=== PATIENT | male | born 1935 | race Caucasian/White ===

== ENCOUNTER 2017-01-26 06:30 | Inpatient (IN) | payer OTHER ==
[~2017-01-26] VITALS: Ht 167.6 cm; Wt 74.8 kg
[~2017-01-26 06:30] MED LIST: ALBU0.0912 IH; ATOR20TA40 PO; CLIN300C6 PO; LACT10CA PO; LEVO750T2 PO; LISI10TA11 PO; TAMS0.4C96 PO
--- NOTE | 2017-01-26 06:41 | NUR ---
PT TAKEN TO BED 2
[2017-01-26 06:46] VITALS: BP 136/84
--- NOTE | 2017-01-26 07:00 | NUR ---
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 WILL CONTINUE TO MONITOR. Addendum: 01/26/17 at 0843 by [facility] PT NOTED WITH DISCOLORATION TO BL ARMS, PT STATES FROM RECENT IVS. PT STATES NO PAIN OR DISCOMFORT TO SITE AT THIS TIME.
--- NOTE | 2017-01-26 07:41 | NUR ---
XRAY AT BEDSIDE.
[2017-01-26 07:52] LABS: BASOPHILS # (AUTO) 0.2 K/uL (0.00-0.22); BASOPHILS % (AUTO) 2.4 % (0.0-2.0); EOSINOPHILS # (AUTO) 0.5 K/uL (0-0.4); EOSINOPHILS % (AUTO) 6.5 % (0.0-4.0); HEMATOCRIT 40.4 % (36-52); HEMOGLOBIN 13.4 g/dL (12.0-18.0); LYMPHOCYTES # (AUTO) 1.7 K/uL (2.0-11.5); LYMPHOCYTES % (AUTO) 20.8 % (20.5-51.1); MEAN CORPUSCULAR HEMOGLOBIN 31 pg (27-31); MEAN CORPUSCULAR HGB CONC 33 g/dL (33-37); MEAN CORPUSCULAR VOLUME 93 fL (80-94); MONOCYTES # (AUTO) 0.8 K/uL (0.8-1.0); MONOCYTES % (AUTO) 9.8 % (1.7-9.3); NEUTROPHILS # (AUTO) 4.9 K/uL (1.8-7.7); NEUTROPHILS % (AUTO) 60.5 % (42.2-75.2); PLATELET COUNT (AUTO) 451 K/uL (140-450); RED BLOOD CELL COUNT(AUTO) 4.34 MIL/uL (4.20-6.10); RED CELL DISTRIBUTION WIDTH 13.2 % (11.6-13.7); WHITE BLOOD COUNT (AUTO) 8.1 K/uL (4.8-10.8)
[2017-01-26 08:07] LABS: ANION GAP 11.4 (8-16); CARBON DIOXIDE 30.6 mmol/L (21-32); CHLORIDE 106 mmol/L (98-107); GLUCOSE 91 mg/dL (74-106); SODIUM SERUM 144 mmol/L (136-145); UREA NITROGEN, BLOOD 20 mg/dL (7-18)
[2017-01-26 08:11] LABS: ALBUMIN 2.7 g/dL (3.4-5.0); ASPARTATE AMINOTRANSFERASE 15 U/L (15-37); TOTAL BILIRUBIN 0.5 mg/dL (0.0-1.0)
[2017-01-26] MEDS ORDERED: TETRACAINE HCL/PF 0.5% OPTH 4 ML BTL OP ONE (09:00)
[2017-01-26] MEDS ORDERED: cefTRIAXone 1,000 MG VIAL ONE (09:04)
--- NOTE | 2017-01-26 09:18 | NUR ---
ER MD DR. LONG EVALUATING PT AT BEDSIDE.
[2017-01-26] MEDS ORDERED: NACL 0.9% 1,000 ML IV SCH ×2 (09:53→14:20)
[2017-01-26] MEDS ORDERED: ONDANSETRON 4 MG/2 ML VIAL IVP PRN (09:55)
[2017-01-26] MEDS ORDERED: HYDROcodone/APAP 7.5/325 MG 1 TAB PO PRN (09:55)
[2017-01-26] MEDS ORDERED: ACETAMINOPHEN 325 MG TAB PO PRN (09:55)
--- NOTE | 2017-01-26 10:03 | NUR ---
REPORT GIVEN TO JACLYN BUSTILLO.
--- NOTE | 2017-01-26 10:25 | NUR ---
PT ARRIVED ON THE UNIT IN A GURNEY WITH 2 ER NURSES. PT IS AWAKE AND ORIENTED. INTRODUCED MYSELF AND UPDATED THE BOARD. PT IS AMBULATORY. AMBULATED FROM [address] WAY TO BED. GAIT STEADY. PT HAS AN IV ON R AC SL. SKIN INTACT. C/O OF BLURRINESS OF HIS VISION. PT STATES THAT IT'S THE HOSPITAL LIGHTS OR MEDICATION THAT WE GIVE HIM THAT IS CAUSING THE BLURRINESS AND BLINDNESS. NEXT OF KIN CALLED. STATES HE HAS BEEN IN AND OUT OF HOSPITALS IN THE LAST 2 WEEKS. [facility] 4X , [facility] 3X, [facility]. V/S WITHIN NORMAL LIMITS. DENIES PAIN AT THIS TIME. WILL CONTINUE TO MONITOR PT.
--- NOTE | 2017-01-26 10:25 | NUR ---
Patient will be admitted to care of DR. FAIR. Admited to TELEMETRY. Will go to room 121B. Belongings list completed. Report to JACLYN BUSTILLO.
[2017-01-26 11:00] VITALS: BP 125/82
[2017-01-26 11:06] LABS: CHOL/HDL RATIO 3.3 (1-4.5); FREE T4 (FREE THYROXINE) 1.1 ng/dL (0.76-1.46); MAGNESIUM 1.6 mg/dL (1.8-2.4); THYROID STIMULATING HORMONE 1.81 uIU/mL (0.34-3.74)
[2017-01-26 12:00] VITALS: BP 123/65
--- NOTE | 2017-01-26 12:00 | NUR ---
NO ORDERS FOR DIET. TRIED TO LOOK FOR MD. ALL RESIDENTS WENT TO A SPEAKING ENGAGEMENT. SPOKE TO STUDENTS. THEY WILL TEXT HIM AND FIND OUT.
[2017-01-26] MEDS: AZITHROMYCIN 250 MG TAB PO SCH (14:25)
--- NOTE | 2017-01-26 14:37 | NUR ---
ATTENDING MD AND GARAGE DOOR OPENER INSTALLER CAME IN TO SEE PT.
[2017-01-26 16:00] VITALS: BP 121/74
--- NOTE | 2017-01-26 16:28 | NUR ---
PSYCH CONSULT HERE.
[2017-01-26] MEDS ORDERED: LORazepam 1 MG TAB PO SCH (16:30)
[2017-01-26] MEDS ORDERED: ALPRAZolam 0.5 MG TAB PO SCH (16:50)
--- NOTE | 2017-01-26 18:37 | NUR ---
PT WATCHING TV. NO SIGNS OF DISTRESS. WILL CONTINUE TO MONITOR PT.
--- NOTE | 2017-01-26 19:25 | NUR ---
ENDORSED PT TO THE NIGHTSHIFT NURSE AT BEDSIDE FOR CONTINUITY OF CARE. PT IN STABLE CONDITION.
--- NOTE | 2017-01-26 19:26 | NUR ---
RECEIVED REPORT AT THE BEDSIDE FROM DAY NURSE JHOANA ANAYA, PT IN STABLE CONDITION, NO S/S OF DISTRESS NOTED. PT IS AAO4X, ON RA. IV TO THE R AC 22G PATENT AND INTACT, INFUSING WELL. RESPIRATIONS ARE EVEN AND UNLABORED. BOWEL SOUNDS PRESENT. SKIN IS INTACT. BRUISING NOTED ON UPPER EXTREMITIES BILATERALLY. INITIAL ASSESSMENT COMPLETED. PLAN OF CARE DISCUSSED WITH PT AT THE BEDSIDE, VERBALIZED UNDERSTANDING. ALL SAFETY PRECAUTIONS MET, CALL LIGHT WITHIN REACH, WILL CONTINUE TO MONITOR.
[2017-01-26 20:00] VITALS: BP 99/60
[2017-01-26] MEDS: DOCUSATE SODIUM 100 MG GELCAP PO SCH (20:22)
--- NOTE | 2017-01-26 20:55 | NUR ---
PT REFUSES LISINOPRIL AT THIS TIME, PT STATES, "MY BP IS TOO LOW I DO NOT NEED THAT, IT WONT BE GOOD." PT EDUCATED ON RISKS AND BENEFITS, VERBALIZED UNDERSTANDING. WILL CONTINUE TO MONITOR
[2017-01-26] MEDS ORDERED: LISINOPRIL 10 MG TAB PO SCH (21:00)
[2017-01-26] MEDS ORDERED: ZOLPIDEM 10 MG TAB PO SCH (21:00)
[2017-01-26 21:27] VITALS: BP 120/80
[2017-01-27] VITALS: BP 104/70
--- NOTE | 2017-01-27 01:30 | NUR ---
PT AGITATED AT THIS TIME, REQUESTING MORE SLEEPING PILLS. PT STATES, "I CANNOT SLEEP GET THE IN HERE NOW TO GIVE ME SLEEPING MEDICATION." DR. HSIEH MADE AWARE NO NEW ORDERS
--- NOTE | 2017-01-27 02:30 | NUR ---
NOTIFIED DR. HSIEH OF PTS REQUEST AGAIN FOR MORE SLEEPING MEDICATION.
[2017-01-27 03:00] VITALS: BP 120/68
[2017-01-27 04:00] VITALS: BP 116/72
--- NOTE | 2017-01-27 05:33 | NUR ---
PATIENT IS NOT COOPERATIVE AND TAKING MASK ON AND OFF. PATIENT WILL NOT KEEP MASK ON DURING NIGHT AND SATURATION SPO2 96 HEART RATE 88 ON ROOM AIR. RT WAS UNABLE TO CHART BIPAP EVERY TWO HOURS DURING NOC BECAUSE PATIENT KEEP TAKING MASK OFF.
[2017-01-27 06:07] LABS: BASOPHILS # (AUTO) 0.1 K/uL (0.00-0.22); BASOPHILS % (AUTO) 1.6 % (0.0-2.0); EOSINOPHILS # (AUTO) 0.5 K/uL (0-0.4); EOSINOPHILS % (AUTO) 5.5 % (0.0-4.0); HEMATOCRIT 36.8 % (36-52); HEMOGLOBIN 12.4 g/dL (12.0-18.0); LYMPHOCYTES # (AUTO) 1.9 K/uL (2.0-11.5); LYMPHOCYTES % (AUTO) 23.1 % (20.5-51.1); MEAN CORPUSCULAR HEMOGLOBIN 32 pg (27-31); MEAN CORPUSCULAR HGB CONC 34 g/dL (33-37); MEAN CORPUSCULAR VOLUME 95 fL (80-94); MONOCYTES # (AUTO) 0.8 K/uL (0.8-1.0); MONOCYTES % (AUTO) 9.6 % (1.7-9.3); NEUTROPHILS # (AUTO) 5.1 K/uL (1.8-7.7); NEUTROPHILS % (AUTO) 60.2 % (42.2-75.2); PLATELET COUNT (AUTO) 401 K/uL (140-450); RED BLOOD CELL COUNT(AUTO) 3.89 MIL/uL (4.20-6.10); RED CELL DISTRIBUTION WIDTH 13.6 % (11.6-13.7); WHITE BLOOD COUNT (AUTO) 8.4 K/uL (4.8-10.8)
[2017-01-27 06:34] LABS: ANION GAP 8.3 (8-16); CARBON DIOXIDE 31.7 mmol/L (21-32); CHLORIDE 107 mmol/L (98-107); GLUCOSE 87 mg/dL (74-106); SODIUM SERUM 143 mmol/L (136-145); UREA NITROGEN, BLOOD 20 mg/dL (7-18)
[2017-01-27 06:47] LABS: MAGNESIUM 1.6 mg/dL (1.8-2.4); PHOSPHORUS 3.4 mg/dL (2.5-4.9)
--- NOTE | 2017-01-27 07:41 | NUR ---
GAVE REPORT TO DAY NURSE AT THE BEDSIDE FOR CONTINUITY OF CARE, PT REMAINS STABLE
--- NOTE | 2017-01-27 07:45 | NUR ---
RECEIVED PT REPORT AT BEDSIDE FROM NIGHT NURSE. PT IS AAOX4 AND SHOWS NO S/S OF ACUTE DISTRESS ON ROOM AIR. PT DENIES PAIN. PT HAS PURPLE DISCOLORATION AT THE L UPPER ARM; OTHERWISE, SKIN IS INTACT. PT ON TELE MONITOR. IV NOTED ON THE R AC WITH IVF'S INFUSING WELL. IV IS PATENT AND INTACT WITH NO SIGNS OF INFILTRATION. PT WAS EXPLAINED POC FOR TODAY AND PT VERBALIZED UNDERSTANDING. THE BED IS IN LOW POSITION WITH CALL LIGHT WITHIN REACH. ALL NEED'S MET AT THIS TIME. WILL CONTINUE TO MONITOR.
--- NOTE | 2017-01-27 07:47 | NUR ---
PT REMOVED CPAP REFUSED ALL VITALS
[2017-01-27 08:00] VITALS: BP 103/65
[2017-01-27] MEDS ORDERED: TAMSULOSIN 0.4 MG CAP PO SCH (08:30)
[2017-01-27] MEDS: DOCUSATE SODIUM 100 MG GELCAP PO SCH (08:49)
[2017-01-27] MEDS ORDERED: LACTOBACILLUS RHAMNOSUS GG 1 EACH CAP PO SCH (09:00)
[2017-01-27] MEDS ORDERED: ATORVASTATIN 20 MG TAB PO SCH (09:00)
[2017-01-27] MEDS ORDERED: CITALOPRAM 20 MG TAB PO SCH (09:00)
[2017-01-27] MEDS ORDERED: PANTOPRAZOLE 40 MG INJ VIAL IVP SCH (09:00)
--- NOTE | 2017-01-27 09:00 | NUR ---
ADMINISTERED SCHEDULED MEDICATIONS. PT TOLERATED ACTIVITY WELL. PT SWALLOWED WITH NO DIFFICULTY. ALL NEED'S MET AT THIS TIME.
--- NOTE | 2017-01-27 11:15 | NUR ---
PT IS SITTING WATCHING TV AND SHOWS NO S/S OF ACUTE DISTRESS ON ROOM AIR. WILL CONTINUE TO MONITOR.
[2017-01-27 12:00] VITALS: BP 116/74
[2017-01-27] MEDS: AZITHROMYCIN 250 MG TAB PO SCH (12:15)
--- NOTE | 2017-01-27 12:55 | NUR ---
PT STATED, " I AM LOSING MY VISION WITH THE TREATMENT I AM RECEIVING HERE." PT WAS ASKED WHEN DID THIS BEGIN, PT STATED, " ONCE I ARRIVE TO THE HOSPITAL IT BEGINS TO FADE, I CAN BARELY MAKE YOUR SILHOUETTE. MY RIGHT EYE I CANNOT MAKE OUT YOUR FACE." DR SU WAS NOTIFIED. PT WAS EXPLAINED TREATMENT BY AND POC. PT STATED, " I WANT TO GO HOME, YOU CANNOT KEEP ME HERE AGAINST MY WILL." PT WAS EXPLAINED HE HAS THE RIGHT TO LEAVE OUR CARE HOWEVER IT IS IN HIS BEST INTEREST TO CONTINUE CARE HERE TO IMPROVE HIS INFECTION. 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 PT INSISTED ON LEAVING AMA. EXPLAINED THE CONSEQUENCES OF LEAVING AMA. PT VERBALIZED UNDERSTANDING AND SIGNED AMA FORM. PT IV WAS DISCONTINUED WITH IV CANNULA INTACT. REMOVED WRISTBANDS AND TELE BOX. TAXI WAS CALLED FOR PT, PT STATED HE WILL PAY OF TAXI RIDE HOME . PT WAS OFFERED A WHEELCHAIR HOWEVER HE PREFERRED TO AMB OFF UNIT. PT AMB WITH STEADY GAIT.
== END 2017-01-27 12:55 | disposition left against medical advice (07) | DRG 194 ==
LOC: MED 06:30 → MTU 09:53
PROVIDERS: ADMIT Family Medicine; ATTEND Family Medicine
DX: J18.9 Pneumonia, unspecified organism (principal); E44.0 Moderate protein-calorie malnutrition; E83.42 Hypomagnesemia; F44.6 Conversion disorder with sensory symptom or deficit; F41.9 Anxiety disorder, unspecified; Z53.21 Procedure and treatment not carried out due to patient leaving prior to being seen by health care provider; H54.7 Unspecified visual loss; I10 Essential (primary) hypertension; M62.50 Muscle wasting and atrophy, not elsewhere classified, unspecified site; G47.33 Obstructive sleep apnea (adult) (pediatric); Z90.49 Acquired absence of other specified parts of digestive tract; Z68.26 Body mass index [BMI] 26.0-26.9, adult; Z87.891 Personal history of nicotine dependence
CPT/HCPCS: 36415; 71010; 80048; 80053; 82140; 82150; 83605; 83690; 83735; 83880; 84100; 84439; 84443; 84484; 85025; 85610; 85730; 87040; 87081; 93005; 94660; 96365; 99285; C9113; J0696; J7030; J7060

== ENCOUNTER 2017-01-28 15:45 | Inpatient (IN) | payer OTHER ==
[~2017-01-28] VITALS: Ht 167.6 cm; Wt 77.6 kg
[2017-01-28 15:54] VITALS: BP 117/74
--- NOTE | 2017-01-28 15:55 | NUR ---
PT AMBULATED TO BED 8.
--- NOTE | 2017-01-28 15:57 | NUR ---
82M BIB FAMILY C/O SHORTNESS OF BREATH WITH VISION LOSS X 2 HOURS PRIOR TO ARRIVAL TO ER TODAY; PT STATES " I CAN SEE ABOUT 40 % IN BOTH EYES. THIS IS A NEW CONDITION THAT'S NEVER HAPPENED TO ME BEFORE"; WHEEZES HEARD ON BL BASES, PT STATES NO COUGH AT THIS TIME, RR EVEN/UNLABORED, EQUAL RISE/FALL OF CHEST NOTED AT THIS TIME, PT SPEAKING IN FULL CLEAR SENTENCES AT THIS TIME; PT AA&OX4, PERRLA, STATES NO PAIN AND NO N/V/D AT THIS TIME; SMALL "SPOTS" OF DISCOLORATION TO BL ARMS NOTED AT THIS TIME; PT STATES " I THINK I HIT A TABLE, BUT IT DOESN'T HURT"; STEADY GAIT; PT PLACED ON MONITOR, RESTING IN BED WITH HOB ELEVATED AND IN LOWEST POSITION; POSITIONED FOR COMFORT; ER MD MADE AWARE OF STATUS. WILL CONTINUE TO MONITOR.
[2017-01-28] MEDS ORDERED: NACL 0.9% 2,000 ML IV SCH (15:59)
[2017-01-28] MEDS ORDERED: LEVOFLOXACIN 750 MG/D5W PREMIX 150 ML IV ONE (16:00)
--- NOTE | 2017-01-28 16:05 | NUR ---
XRAY AT BEDSIDE.
[2017-01-28 16:32] LABS: BASOPHILS # (AUTO) 0.1 K/uL (0.00-0.22); BASOPHILS % (AUTO) 1.8 % (0.0-2.0); EOSINOPHILS # (AUTO) 0.2 K/uL (0-0.4); EOSINOPHILS % (AUTO) 2.8 % (0.0-4.0); HEMATOCRIT 39.6 % (36-52); LYMPHOCYTES # (AUTO) 1.2 K/uL (2.0-11.5); LYMPHOCYTES % (AUTO) 15.5 % (20.5-51.1); MEAN CORPUSCULAR HEMOGLOBIN 31 pg (27-31); MEAN CORPUSCULAR HGB CONC 33 g/dL (33-37); MEAN CORPUSCULAR VOLUME 93 fL (80-94); MONOCYTES # (AUTO) 0.6 K/uL (0.8-1.0); NEUTROPHILS # (AUTO) 5.8 K/uL (1.8-7.7); NEUTROPHILS % (AUTO) 72.9 % (42.2-75.2); PLATELET COUNT (AUTO) 425 K/uL (140-450); RED BLOOD CELL COUNT(AUTO) 4.24 MIL/uL (4.20-6.10); RED CELL DISTRIBUTION WIDTH 13.4 % (11.6-13.7); WHITE BLOOD COUNT (AUTO) 7.9 K/uL (4.8-10.8)
--- NOTE | 2017-01-28 16:47 | NUR ---
ER MD DR. JUSTICE EVALUATING PT AT BEDSIDE.
[2017-01-28 17:03] LABS: ALBUMIN 2.8 g/dL (3.4-5.0); ANION GAP 12.4 (8-16); ASPARTATE AMINOTRANSFERASE 16 U/L (15-37); CARBON DIOXIDE 28.3 mmol/L (21-32); CHLORIDE 103 mmol/L (98-107); GLUCOSE 101 mg/dL (74-106); POTASSIUM 3.7 mmol/L (3.5-5.1); SODIUM SERUM 140 mmol/L (136-145); TOTAL BILIRUBIN 0.5 mg/dL (0.0-1.0); UREA NITROGEN, BLOOD 22 mg/dL (7-18)
[2017-01-28 17:11] LABS: APPEARANCE,URINE CLEAR (CLEAR); BILIRUBIN,URINE NEGATIVE (NEGATIVE); BLOOD, URINE NEGATIVE (NEGATIVE); COLOR,URINE YELLOW (YELLOW); LEUKOCYTE ESTERASE ,URINE NEGATIVE (NEGATIVE); NITRITE, URINE NEGATIVE (NEGATIVE); UGLUCOSE NEGATIVE (NEGATIVE)
[2017-01-28] MEDS: NACL 0.9% 1,000 ML IV SCH (17:14)
[2017-01-28] MEDS ORDERED: ACETAMINOPHEN 325 MG TAB PO PRN (17:15)
[2017-01-28] MEDS ORDERED: ONDANSETRON 4 MG/2 ML VIAL IVP PRN (17:15)
[2017-01-28] MEDS ORDERED: HYDROcodone/APAP 7.5/325 MG 1 TAB PO PRN (17:15)
[2017-01-28] MEDS ORDERED: ALBUTEROL SULFATE/IPRATROPIU 3 ML SOL IH PRN (17:15)
--- NOTE | 2017-01-28 17:21 | NUR ---
PT RETURNED FROM [facility]IA [facility] BY [facility] AT THIS TIME.
--- NOTE | 2017-01-28 17:57 | NUR ---
Patient will be admitted to care of DR. BARNARD. Admited to TELEMETRY. Will go to room 121B. Belongings list completed. Report to JACLYN JALLOH.
[2017-01-28 17:59] LABS: CHOL/HDL RATIO 3.3 (1-4.5); FREE T4 (FREE THYROXINE) 1.12 ng/dL (0.76-1.46); MAGNESIUM 1.5 mg/dL (1.8-2.4); PHOSPHORUS 2.9 mg/dL (2.5-4.9); THYROID STIMULATING HORMONE 1.1 uIU/mL (0.34-3.74)
[2017-01-28 18:22] LABS: BARBITURATE, URINE NEG. ng/ml (NEG <=200); BENZODIAZEPINE, URINE NEG. ng/mL (NEG <=200); CANNABINOID, URINE NEG. ng/mL (NEG <=50); COCAINE, URINE NEG. ng/mL (NEG <=300); OPIATE, URINE NEG. ng/mL (NEG <=2000); PHENCYCLIDINE SCREEN,URINE NEG. ng/mL (NEG <=25)
--- NOTE | 2017-01-28 19:00 | NUR ---
PT RECEIVED FROM ED VIA [place] AT 1845. PT IS AWAKE ALERT AND ORIENTED X4. NO PAIN OR RESP DISTRESS NOTED. PT IS RESPONSIVE TO VERBAL COMMAND APPROPRIATELY. V.S STABLE.
[2017-01-28] MEDS ORDERED: MAGNESIUM CHLORIDE 64 MG TABEC PO SCH (19:20)
[2017-01-28] MEDS: ALBUTEROL SULFATE/IPRATROPIU 3 ML SOL IH SCH (19:21)
--- NOTE | 2017-01-28 19:25 | NUR ---
RECEIVED BEDSIDE REPORT FROM DAY SHIFT NURSE, PT RESTING NO DISTRESS NOTED, STABLE, NO SOB, ON 2L NC, IV TO THE R FA 20G RUNNING NS @50ML/HR, INFUSING WELL, INITIAL ASSESSMENT DONE, ALL SAFETY PRECAUTION MET. CALL LIGHT WIHTIN REACH, WILL CONTINUE TO MONITOR.
[2017-01-28 20:00] VITALS: BP 125/68
[2017-01-28] MEDS ORDERED: CLINDAMYCIN 600 MG/4 ML VIAL ONE (20:43)
[2017-01-28] MEDS ORDERED: ZOLPIDEM 10 MG TAB PO SCH (21:00)
[2017-01-28] MEDS: LISINOPRIL 10 MG TAB PO SCH (21:06)
[2017-01-28] MEDS: DOCUSATE SODIUM 100 MG GELCAP PO SCH (21:07)
[2017-01-28] MEDS: CLINDAMYCIN 600 MG in DEXTROSE 5% 50 ML IV SCH (21:07)
--- NOTE | 2017-01-28 21:07 | NUR ---
DUE MEDICATION GIVEN, PT RESTING, NO DISTRESS NOTED, CALL LIGHT WITHIN REACH, WILL CONTINUE TO MONITOR.
--- NOTE | 2017-01-28 21:16 | NUR ---
PLACED PT ON MASK CPAP AND AFTER 30 MIN WITH THE PT IN THE ROOM DISCUSS THE CPAP, HE WANTS THE CPAP OFF AND FOR ME TO COME BACK IN ONE HOUR TO SEE HIM AND HE WILL TRY AGAIN.
[2017-01-28] MEDS: LORazepam 1 MG TAB PO PRN (23:07)
--- NOTE | 2017-01-28 23:07 | NUR ---
PT REPORTING UNABLE TO SLEEP, MEDICATION GIVEN, PT TOLERATED WELL, CALL LIGHT WITHIN REACH. NO DISTRESS NOTED, WILL CONTINUE TO MONITOR.
[2017-01-29] VITALS: BP 118/60
[2017-01-29] MEDS: CLINDAMYCIN 600 MG in DEXTROSE 5% 50 ML IV SCH ×4 (00:21→23:02)
[2017-01-29] MEDS ORDERED: CLINDAMYCIN 600 MG/4 ML VIAL ONE ×2 (00:29→06:46)
--- NOTE | 2017-01-29 03:40 | NUR ---
PT RESTING, NO DISTRESS NOTED, CALL LIGHT WITHIN REACH. WILL CONTINUE TO MONITOR.
[2017-01-29 04:00] VITALS: BP 117/80
[2017-01-29] MEDS: LORazepam 1 MG TAB PO PRN (06:40)
--- NOTE | 2017-01-29 07:20 | NUR ---
ENDORSED PT TO DAY SHIFT NURSE, PT STABLE.
--- NOTE | 2017-01-29 07:20 | NUR ---
RECEIVED BEDSIDE REPORT FROM ONCOLOGY TECHNICIAN NURSE, NO S/S OF DISTRESS NOTED, AAOX4, IV TO THE R AC RUNNING NS 50ML/HR INFUSING WELL. PT RESTING, 2L O2 VIA NC. BED LOW, CALL LIGHT WITHIN REACH. FALL PRECAUTION MET. WILL CONTINUE TO MONITOR.
--- NOTE | 2017-01-29 07:30 | NUR ---
RECIVED PT ON 2LPM NC AWAKE ALERT RAY WELL 0 RESP DISTRESS SPO2 ON 2LPM NC .98
[2017-01-29] MEDS: ALBUTEROL SULFATE/IPRATROPIU 3 ML SOL IH SCH ×3 (07:31→19:01)
[2017-01-29 08:00] VITALS: BP 96/73
--- NOTE | 2017-01-29 08:45 | NUR ---
PATIENT HAS BEEN SCREENED AND CATEGORIZED MODERATE NUTRITION RISK. PATIENT WILL BE SEEN WITHIN 3-5 DAYS OF ADMISSION. 01/31/17-02/02/[address]
[2017-01-29] MEDS: PANTOPRAZOLE 40 MG INJ VIAL IVP SCH ×2 (09:00→09:18)
[2017-01-29] MEDS: ATORVASTATIN 20 MG TAB PO SCH (09:17)
[2017-01-29] MEDS: DOCUSATE SODIUM 100 MG GELCAP PO SCH ×2 (09:17→20:34)
[2017-01-29] MEDS: CITALOPRAM 20 MG TAB PO SCH (09:18)
--- NOTE | 2017-01-29 09:50 | NUR ---
PATIENT IS AWAKE AND ALERT, LISTENING TO RADIO. NO S/S OF DISTRESS NOTED, RESPIRATION EVEN AND UNLABORED, CALL LIGHT WITHIN REACH, SAFETY MEASURE ENSURED, WILL CONTINUE TO MONITOR.
--- NOTE | 2017-01-29 11:30 | NUR ---
INSERTED AN IV TO THE LEFT AC FOR CT W/ CONTRAST, GAUGE 20. PT TOLERATED WELL.
[2017-01-29 12:00] VITALS: BP 125/76
--- NOTE | 2017-01-29 12:20 | NUR ---
PT LEFT FOR CT CHEST SCAN. NO S/S OF DISTRESS NOTED.
[2017-01-29] MEDS: NACL 0.9% 1,000 ML IV SCH ×2 (13:14→21:00)
[2017-01-29 16:00] VITALS: BP 119/73
[2017-01-29] MEDS ORDERED: LEVOFLOXACIN 750 MG/D5W PREMIX 150 ML IV SCH (16:00)
--- NOTE | 2017-01-29 19:10 | NUR ---
ENDORSED PT TO DIAPHRAGM BUILDER. REPORT GIVEN AT BEDSIDE. PT IS GETTING BREATHING TX. PT IS IN STABLE CONDITION AND NO S/S OF ACUTE DISTRESS.
--- NOTE | 2017-01-29 19:10 | NUR ---
ADALI STILL RUNNING, TOLD PAPER BAG MACHINE OPERATOR TO HANG CLEOCIN RIGHT AFTER IT'S DONE. WROTE IT DOWN ON THE SOFT CHART FOR REMINDER.
--- NOTE | 2017-01-29 19:15 | NUR ---
RECEIVED REPORT FROM AM NURSE. PT RESTING IN BED, AOX4, AMBULATORY, ABLE TO VERBALIZE NEEDS. MEDICAL ASSISTANT OB GYN IN PLACE, WILL REMOVE DUE TO CARDIAC MONITORING DISCONTINUED ORDERED. PT DENIES CHEST PAIN OR S/S OF ACUTE DISTRESS. PT C/O SLIGHT SOB, PT IS CURRENTLY RECEIVING BREATHING TX, TOLERATING WELL. PT HAS O2 2L NC. IV ACCESS ASYMPTOMATIC, PATENT AND INTACT. IVF INFUSING WELL. DISCUSSED AND REVIEWED PLAN OF CARE WITH PT. PT VERBALIZED UNDERSTANDING. ALL NEEDS MET. SAFETY MEASURES ENSURED. CALL LIGHT WITHIN REACH. WILL CONTINUE TO MONITOR.
[2017-01-29 20:00] VITALS: BP 120/74
[2017-01-29] MEDS: LISINOPRIL 10 MG TAB PO SCH (20:34)
--- NOTE | 2017-01-29 20:40 | NUR ---
PT REFUSED DUE MED ERIKA, PT STATED "THAT DIDN'T WORK FOR ME, I SPECIFICALLY TOLD THE MORNING DOCTOR THAT I WOULD GET KLONOPIN." CALLED DR HSIEH, MADE MD AWARE. DR HSIEH AT BEDSIDE TO SPEAK WITH PT. ORDERS PENDING, WILL CARRY OUT. ADMINISTERED REMAINING DUE MEDS WITH EDUCATION. PT VERBALIZED UNDERSTANDING, TOLERATED MEDS WELL. ALL NEEDS MET. SAFETY MEASURES ENSURED. CALL LIGHT WITHIN REACH. WILL CONTINUE TO MONITOR.
[2017-01-29] MEDS ORDERED: traZODone 50 MG TAB PO SCH (21:00)
[2017-01-29] MEDS ORDERED: clonazePAM 0.5 MG TAB PO SCH (22:30)
--- NOTE | 2017-01-29 22:31 | NUR ---
PT C/O INSOMNIA, ADMINISTERED KLONOPIN PO ORDERED WITH EDUCATION. PT VERBALIZED UNDERSTANDING, TOLERATED MED WELL. ALL NEEDS MET. IVF INFUSING WELL. SAFETY MEASURES ENSURED. CALL LIGHT WITHIN REACH. WILL CONTINUE TO MONITOR.
--- NOTE | 2017-01-29 23:10 | NUR ---
PT RESTING COMFORTABLY, NO S/S OF ACUTE DISTRESS. SPO2 97% AT ROOM AIR, RR 18 EVEN AND UNLABORED. ADMINISTERED CLEOCIN IVPB ORDERED WITH EDUCATION. PT VERBALIZED UNDERSTANDING, TOLERATED MED WELL. ALL NEEDS MET. IVPB INFUSING WELL. SAFETY MEASURES ENSURED. CALL LIGHT WITHIN REACH. WILL CONTINUE TO MONITOR. DR HSIEH AT BEDSIDE SPEAKING WITH PT. PT IS GETTING READY TO GO TO SLEEP, WILL NOTIFY RT TO SET UP CPAP MACHINE.
[2017-01-30] VITALS: BP 117/71
[2017-01-30] MEDS: LORazepam 1 MG TAB PO PRN ×2 (00:28→23:14)
--- NOTE | 2017-01-30 00:30 | NUR ---
PT C/O ANXIETY AND INSOMNIA DESPITE KLONOPIN PO, MADE DR HSIEH AWARE, INSTRUCTED BY MD TO GIVE ATIVAN PO PRN ORDERED. ADMINISTERED ATIVAN 2MG PO PRN ORDERED WITH EDUCATION. PT VERBALIZED UNDERSTANDING, TOLERATED WELL. ALL NEEDS MET. IVF INFUSING WELL. CPAP ENSURED. SAFETY MEASURES ENSURED. CALL LIGHT WITHIN REACH. WILL CONTINUE TO MONITOR.
--- NOTE | 2017-01-30 02:15 | NUR ---
PT SLEEPING COMFORTABLY, NO S/S OF ACUTE DISTRESS. ALL NEEDS MET. IVF INFUSING WELL. SAFETY MEASURES ENSURED. CALL LIGHT WITHIN REACH. WILL CONTINUE TO MONITOR.
--- NOTE | 2017-01-30 03:54 | NUR ---
CPAP ALARMING, MOUTH PIECE IS NOT PROPERLY SEALED DUE TO PT TURNING IN BED. PT SLEEPING COMFORTABLY, AROUSABLE TO NAME, PT REQUESTED TO TAKE OFF CPAP. PT PUT BACK ON O2 2L NC, RR 18 EVEN AND UNLABORED, NO S/S OF ACUTE DISTRESS. ALL NEEDS MET. IVF INFUSING WELL. SAFETY MEASURES ENSURED. CALL LIGHT WITHIN REACH. WILL CONTINUE TO MONITOR.
[2017-01-30] MEDS: CLINDAMYCIN 600 MG in DEXTROSE 5% 50 ML IV SCH ×3 (05:01→18:15)
--- NOTE | 2017-01-30 05:01 | NUR ---
PT SLEEPING COMFORTABLY, AROUSABLE TO NAME. ADMINISTERED CLEOCIN IVPB ORDERED WITH EDUCATION. PT STATED "OK," IVPB INFUSING WELL. ALL NEEDS MET. SAFETY MEASURES ENSURED. CALL LIGHT WITHIN REACH. WILL CONTINUE TO MONITOR.
[2017-01-30 06:11] LABS: BASOPHILS # (AUTO) 0.2 K/uL (0.00-0.22); BASOPHILS % (AUTO) 3.4 % (0.0-2.0); EOSINOPHILS # (AUTO) 0.5 K/uL (0-0.4); EOSINOPHILS % (AUTO) 7.5 % (0.0-4.0); HEMATOCRIT 34.1 % (36-52); HEMOGLOBIN 11.1 g/dL (12.0-18.0); LYMPHOCYTES # (AUTO) 1.6 K/uL (2.0-11.5); LYMPHOCYTES % (AUTO) 24.1 % (20.5-51.1); MEAN CORPUSCULAR HEMOGLOBIN 31 pg (27-31); MEAN CORPUSCULAR HGB CONC 33 g/dL (33-37); MEAN CORPUSCULAR VOLUME 94 fL (80-94); MONOCYTES # (AUTO) 0.6 K/uL (0.8-1.0); MONOCYTES % (AUTO) 9.8 % (1.7-9.3); NEUTROPHILS # (AUTO) 3.5 K/uL (1.8-7.7); NEUTROPHILS % (AUTO) 55.2 % (42.2-75.2); PLATELET COUNT (AUTO) 335 K/uL (140-450); RED BLOOD CELL COUNT(AUTO) 3.64 MIL/uL (4.20-6.10); WHITE BLOOD COUNT (AUTO) 6.4 K/uL (4.8-10.8)
[2017-01-30 06:23] LABS: ANION GAP 11.6 (8-16); CARBON DIOXIDE 27.4 mmol/L (21-32); CHLORIDE 105 mmol/L (98-107); CREATININE 1.1 mg/dL (0.7-1.3); GLUCOSE 95 mg/dL (74-106); SODIUM SERUM 140 mmol/L (136-145); UREA NITROGEN, BLOOD 19 mg/dL (7-18)
[2017-01-30 06:29] LABS: MAGNESIUM 1.5 mg/dL (1.8-2.4); PHOSPHORUS 3.9 mg/dL (2.5-4.9)
--- NOTE | 2017-01-30 06:45 | NUR ---
ASSUMED CONTINUITY OF CARE. NO SIGNS AND SYMPTOMS OF ACUTE DISTRESS NOTED. INITIAL ASSESSMENT DONE. KEEP COMFORTABLE ON BED. EXPLAINED DIAGNOSIS, PLAN OF CARE, PAIN MANAGEMENT TEACHING, USE OF CALL LIGHT/BED/TV/BATHROOM. VERBALIZED UNDERSTANDING. CALL LIGHT WITHIN REACH.
--- NOTE | 2017-01-30 07:05 | NUR ---
ENDORSED PLAN OF CARE TO AM NURSE. CONDITION STABLE.
--- NOTE | 2017-01-30 07:40 | NUR ---
. -ELYSIA CAME FOR PT. BREATHING TREATMENT. TOLERATED WELL. NO SOB, NOTED.
[2017-01-30] MEDS: ALBUTEROL SULFATE/IPRATROPIU 3 ML SOL IH SCH ×3 (07:43→20:25)
[2017-01-30 08:00] VITALS: BP 101/57
--- NOTE | 2017-01-30 08:00 | NUR ---
Patient's Plan of Care was discussed and reviewed with EDUCATION CONSULTANT: CHIKIS
[2017-01-30] MEDS: DOCUSATE SODIUM 100 MG GELCAP PO SCH ×2 (08:32→20:22)
[2017-01-30] MEDS: ATORVASTATIN 20 MG TAB PO SCH (08:32)
[2017-01-30] MEDS: LACTOBACILLUS RHAMNOSUS GG 1 EACH CAP PO SCH (08:32)
[2017-01-30] MEDS: CITALOPRAM 20 MG TAB PO SCH (08:32)
[2017-01-30] MEDS: PANTOPRAZOLE 40 MG INJ VIAL IVP SCH (09:08)
[2017-01-30] MEDS: MAGNESIUM CHLORIDE 64 MG TABEC PO SCH (09:10)
[2017-01-30] MEDS: NACL 0.9% 1,000 ML IV SCH ×2 (09:14→15:47)
--- NOTE | 2017-01-30 11:42 | NUR ---
SEEN WATCHING TV AT THIS TIME. NO C/O PAIN. NO SOB, NOTED.
--- NOTE | 2017-01-30 12:36 | NUR ---
RT JIN CAME FOR PT. SCHEDULED BREATHING TREATMENT. NO SOB, NOTED.
--- NOTE | 2017-01-30 15:05 | NUR ---
SITTING ON CHAIR WHILE LISTENING TO PERSONAL RADIO. NO DISCOMFORT NOTED.
--- NOTE | 2017-01-30 15:33 | NUR ---
SPOKE TO PATIENT AT BEDSIDE REGARDING DISCHARGE PLAN. PER PATIENT HE LIVES WITH HIS POWER PLANT SUPERVISOR. HAS A C-PAP AT HOME
[2017-01-30 16:00] VITALS: BP 115/66
[2017-01-30] MEDS: LEVOFLOXACIN 750 MG/D5W PREMIX 150 ML IV SCH (16:06)
--- NOTE | 2017-01-30 17:06 | NUR ---
DR. KING CAME AND SPOKE TO PT. AT BEDSIDE.
--- NOTE | 2017-01-30 19:18 | NUR ---
BEDSIDE REPORT GIVEN TO SIENA QUAN -JCALYN. IVF INFUSING WELL. IN STABLE CONDITION.
--- NOTE | 2017-01-30 19:20 | NUR ---
REPORT GIVEN TO ME BY JACLYN QUAN PATIENT IS RESTING IN BED WITH OXYGEN AT 2L NC O2SAT 99% AND VITALS SIGNS CURRENTLY STABLE.PATIENT HAS NO COMPLAINS OF SOB, CHEST PAIN PATIENT IS RESTING IN BED WATCHING TV.CALL LIGHT WITHIN REACH WILL CONTINUE TO MONITOR.
--- NOTE | 2017-01-30 19:24 | NUR ---
MD LOYA CAME AND SAW THE PATIENT AND SPOKE WITH THE PATIENT.PATIENT NEEDS MET WILL CONTINUE TO MONITOR.
--- NOTE | 2017-01-30 19:25 | NUR ---
Patient's Plan of Care was discussed and reviewed with 21 DEALER: ISRAEL BRUNSON
[2017-01-30 20:00] VITALS: BP 105/59
--- NOTE | 2017-01-30 20:22 | NUR ---
EDUCATION GIVEN ON HIS ROUTINE MEDICATIONS AND PATIENT VERBALIZED UNDERSTANDING AND DECIDED TO TAKE SOME MEDS PATIENT REFUSED TO TAKE TRAMADOL PILL AND I HELD LISINOPRIL BECAUSE HIS B/P WAS 105/59 HR 58 PATIENT IS AWARE AND VERBALIZES UNDERSTANDING.PATIENT THEN TOOK THE REST OF THE MEDS AND SAID,"I WANT TO TAKE SOME ATIVAN AROUND 2300 BEFORE IM PUT ON CPAP SO THAT WAY I CAN SLEEP." CALL LIGHT WITHIN REACH WILL CONTINUE TO MONITOR.
[2017-01-30] MEDS: LISINOPRIL 10 MG TAB PO SCH (20:25)
[2017-01-30] MEDS: traZODone 50 MG TAB PO SCH (20:25)
[2017-01-30] MEDS ORDERED: QUEtiapine FUMARATE 25 MG TAB PO SCH (21:00)
--- NOTE | 2017-01-30 23:10 | NUR ---
PLACED PT ON CPAP PER HIS REQUEST AT 2300 .CPAP 10, 30%, PT IS DOING WELL, FEEL COMFORTABLE, VITALS STABLE.
[2017-01-31] MEDS: CLINDAMYCIN 600 MG in DEXTROSE 5% 50 ML IV SCH ×5 (00:14→23:52)
--- NOTE | 2017-01-31 00:37 | NUR ---
PATIENT IS CURRENTLY ASLEEP CONTINUE TO BE MONITORED.IV ANTIBIOTIC INFUSING WELL.WILL CONTINUE TO MONITOR.
--- NOTE | 2017-01-31 02:27 | NUR ---
PATIENT SLEEPING IN BED WITH CPAP MACHINE WILL CONTINUE TO MONITOR.
--- NOTE | 2017-01-31 03:02 | NUR ---
PATIENT STATES,"I NEED TO SLEEP I WANT A SLEEPING PILL." I EXPLAINED TO THE PATIENT THAT ITS TOO LATE FOR A SLEEPING PILL AND THEN PATIENT REPLIED THEN IM SUPPOSE TO STAY AWAKE FOR THE REST OF THE NIGHT." PATIENT HOLLERING WHERES MY SLEEPING PILL I NEED MY SLEEPING PILL.MD HSIEH WAS NOTIFIED AND SHE CAME AND SPOKE TO THE PATIENT.
[2017-01-31] MEDS ORDERED: clonazePAM 0.5 MG TAB PO ONE (03:05)
[2017-01-31 03:14] VITALS: BP 112/62
--- NOTE | 2017-01-31 03:22 | NUR ---
VITALS CHECKED AND RECORDED CURRENTLY STABLE AND KLONOPIN HAS BEEN ADMINISTERED.WILL CONTINUE TO MONITOR THE PATIENT.
--- NOTE | 2017-01-31 05:45 | NUR ---
RESIDENT MD HSIEH CAME TO CHECK ON THE PATIENT I INFORMED HER THAT PATIENT SLEPT WELL LAST NIGHT.
--- NOTE | 2017-01-31 06:39 | NUR ---
PATIENT SLEEPING QUIETLY IN BED AT THIS TIME NEEDS MET WILL CONTINUE TO MONITOR.
[2017-01-31] MEDS: ALBUTEROL SULFATE/IPRATROPIU 3 ML SOL IH SCH ×3 (07:20→18:46)
--- NOTE | 2017-01-31 07:25 | NUR ---
RECEIVED PT IN BED. AWAKE. ALERT ORIENTEDX4, NO SOB NOTED. RT CAME TO SEE PT AND PT SATING 98% ON ROOM AIR. DENIES ANY PAIN OR DISCOMFORT AT THIS TIME. PT AMBULATORY SAFETY PRECAUTION IN PLACE. CALL LIGHT WITHIN REACH.
[2017-01-31 07:36] LABS: BASOPHILS # (AUTO) 0.2 K/uL (0.00-0.22); BASOPHILS % (AUTO) 4.1 % (0.0-2.0); EOSINOPHILS # (AUTO) 0.6 K/uL (0-0.4); EOSINOPHILS % (AUTO) 11.3 % (0.0-4.0); HEMATOCRIT 34.3 % (36-52); HEMOGLOBIN 11.5 g/dL (12.0-18.0); LYMPHOCYTES % (AUTO) 34.3 % (20.5-51.1); MEAN CORPUSCULAR HEMOGLOBIN 31 pg (27-31); MEAN CORPUSCULAR HGB CONC 34 g/dL (33-37); MEAN CORPUSCULAR VOLUME 93 fL (80-94); MONOCYTES # (AUTO) 0.6 K/uL (0.8-1.0); MONOCYTES % (AUTO) 10.9 % (1.7-9.3); NEUTROPHILS # (AUTO) 2.4 K/uL (1.8-7.7); NEUTROPHILS % (AUTO) 39.4 % (42.2-75.2); PLATELET COUNT (AUTO) 311 K/uL (140-450); RED BLOOD CELL COUNT(AUTO) 3.68 MIL/uL (4.20-6.10); RED CELL DISTRIBUTION WIDTH 13.4 % (11.6-13.7); WHITE BLOOD COUNT (AUTO) 5.8 K/uL (4.8-10.8)
--- NOTE | 2017-01-31 07:36 | NUR ---
PATIENT IS CURRENTLY SLEEPING EASILY AROUSABLE CHARLES RESP THERAPIST AT BEDSIDE KEPT PATIENT ON ROOM AIR FOR NOW.REPORT ENDORSED TO JACLYN HARRINGTON SHE WILL RESUME CARE OF THE PATIENT.
[2017-01-31 08:00] VITALS: BP 116/54
[2017-01-31 08:01] LABS: ANION GAP 10.2 (8-16); CHLORIDE 107 mmol/L (98-107); GLUCOSE 81 mg/dL (74-106); POTASSIUM 4.2 mmol/L (3.5-5.1); SODIUM SERUM 143 mmol/L (136-145); UREA NITROGEN, BLOOD 17 mg/dL (7-18)
[2017-01-31 08:13] LABS: MAGNESIUM 1.6 mg/dL (1.8-2.4); PHOSPHORUS 3.8 mg/dL (2.5-4.9)
[2017-01-31] MEDS: PANTOPRAZOLE 40 MG INJ VIAL IVP SCH (08:39)
[2017-01-31] MEDS: LACTOBACILLUS RHAMNOSUS GG 1 EACH CAP PO SCH (08:39)
[2017-01-31] MEDS: DOCUSATE SODIUM 100 MG GELCAP PO SCH ×2 (08:39→21:39)
[2017-01-31] MEDS: MAGNESIUM CHLORIDE 64 MG TABEC PO SCH (08:39)
[2017-01-31] MEDS: ATORVASTATIN 20 MG TAB PO SCH (08:40)
[2017-01-31] MEDS: CITALOPRAM 20 MG TAB PO SCH (08:40)
--- NOTE | 2017-01-31 10:03 | NUR ---
DR. HADDAD MADE AWARE OF LATEST MAGNESIUM LEVEL 1.6.
[2017-01-31] MEDS ORDERED: MAGNESIUM OXIDE 400 MG TAB PO SCH (10:10)
[2017-01-31] MEDS: FLUTICASONE NASAL 50 MCG/ACTUATION 16 GM BTL NS SCH (13:46)
--- NOTE | 2017-01-31 14:46 | NUR ---
CASA, NEXT OF KIN OF PT CALLED, AND WOUND WANT TO SPEAK WITH THE DOCTOR OF PT. GOT CASA'S NUMBER [phone], AND WILL LET DR. HADDAD KNOW. DR. HADDAD TO CALL CASA.
[2017-01-31 15:55] VITALS: BP 107/67
[2017-01-31] MEDS: LEVOFLOXACIN 750 MG/D5W PREMIX 150 ML IV SCH (16:29)
[2017-01-31] MEDS: NACL 0.9% 1,000 ML IV SCH (16:30)
--- NOTE | 2017-01-31 18:47 | NUR ---
PT KEPT CLEAN, DRY AND COMFORTABLE. NEEDS ATTENDED, WILL ENDORSE TO NEXT SHIFT, PT ON STABLE CONDITION, FOR CONTINUITY OF CARE. NO SOB NOTED. DENIES ANY PAIN OR DISCOMFORT AT THIS TIME.
--- NOTE | 2017-01-31 19:15 | NUR ---
RECEIVED REPORT FROM DAY SHIFT NURSE. PT LYING COMFORTABLY IN BED. AAOX4. IV TO LEFT AC #20G, NS AT 50ML/HR. RIGHT FA #20G, SL. DISCUSSED PLAN OF CARE, PT VERBALIZED UNDERSTANDING. WILL CONTINUE TO MONITOR. CALL LIGHT WITHIN REACH.
--- NOTE | 2017-01-31 21:20 | NUR ---
DR. SEYMOUR CAME TO SEE THE PT. NO NEW ORDER.
[2017-01-31] MEDS: traZODone 50 MG TAB PO SCH (21:39)
[2017-01-31] MEDS: QUEtiapine FUMARATE 25 MG TAB PO SCH (21:40)
[2017-01-31] MEDS: LISINOPRIL 10 MG TAB PO SCH (21:40)
[2017-01-31] MEDS: LORazepam 1 MG TAB PO PRN (22:45)
--- NOTE | 2017-01-31 22:46 | NUR ---
PT C/O ANXIETY. ATIVAN 1 MG TAB GIVEN. ALL NEEDS MET AT THIS TIME. CALL LIGHT WITHIN REACH.
--- NOTE | 2017-01-31 23:00 | NUR ---
RT CAME FOR PT'S BIPAP. NO DISTRESS NOTED. ALL NEEDS MET AT THIS TIME. CALL LIGHT WITHIN REACH.
[2017-02-01] VITALS: BP 127/65
--- NOTE | 2017-02-01 01:30 | NUR ---
PT SLEEPING WITH BIPAP MACHINE. NO S/S OF DISTRESS. CALL LIGHT WITHIN REACH.
--- NOTE | 2017-02-01 03:40 | NUR ---
PT SLEEPING. NO S/S OF DISTRESS.
--- NOTE | 2017-02-01 05:05 | NUR ---
PT AWAKE, LYING IN BED COMFORTABLY. NO C/O PAIN OR DISCOMFORT. CALL LIGHT WITHIN REACH.
[2017-02-01] MEDS: CLINDAMYCIN 600 MG in DEXTROSE 5% 50 ML IV SCH ×4 (05:42→23:43)
--- NOTE | 2017-02-01 07:05 | NUR ---
ENDORSED PT TO DAY SHIFT NURSE. PT IN STABLE CONDITION.
--- NOTE | 2017-02-01 07:07 | NUR ---
RECEIVED PT IN BED. ASLEEP, AROUSABLE TO VOICE. ALERT ORIENTED X4. NO SOB NOTED. DENIES ANY PAIN OR DISCOMFORT AT THIS TIME. PT AMBULATORY. SAFETY PRECAUTION IN PLACE. CALL LIGHT WITHIN REACH.
[2017-02-01] MEDS: ALBUTEROL SULFATE/IPRATROPIU 3 ML SOL IH SCH ×3 (07:44→20:10)
[2017-02-01 08:00] VITALS: BP 121/67
[2017-02-01 08:03] LABS: ANION GAP 10.1 (8-16); CARBON DIOXIDE 29.2 mmol/L (21-32); CHLORIDE 107 mmol/L (98-107); GLUCOSE 77 mg/dL (74-106); POTASSIUM 4.3 mmol/L (3.5-5.1); SODIUM SERUM 142 mmol/L (136-145); UREA NITROGEN, BLOOD 17 mg/dL (7-18)
[2017-02-01 08:04] LABS: BASOPHILS # (AUTO) 0.2 K/uL (0.00-0.22); BASOPHILS % (AUTO) 3.3 % (0.0-2.0); EOSINOPHILS # (AUTO) 0.5 K/uL (0-0.4); EOSINOPHILS % (AUTO) 9.9 % (0.0-4.0); HEMATOCRIT 33.5 % (36-52); HEMOGLOBIN 11.5 g/dL (12.0-18.0); LYMPHOCYTES # (AUTO) 1.4 K/uL (2.0-11.5); LYMPHOCYTES % (AUTO) 24.8 % (20.5-51.1); MEAN CORPUSCULAR HEMOGLOBIN 32 pg (27-31); MEAN CORPUSCULAR HGB CONC 34 g/dL (33-37); MEAN CORPUSCULAR VOLUME 93 fL (80-94); MONOCYTES # (AUTO) 0.6 K/uL (0.8-1.0); MONOCYTES % (AUTO) 11.3 % (1.7-9.3); NEUTROPHILS # (AUTO) 2.8 K/uL (1.8-7.7); NEUTROPHILS % (AUTO) 50.7 % (42.2-75.2); PLATELET COUNT (AUTO) 308 K/uL (140-450); RED BLOOD CELL COUNT(AUTO) 3.62 MIL/uL (4.20-6.10); RED CELL DISTRIBUTION WIDTH 13.8 % (11.6-13.7); WHITE BLOOD COUNT (AUTO) 5.5 K/uL (4.8-10.8)
[2017-02-01] MEDS: PANTOPRAZOLE 40 MG INJ VIAL IVP SCH (08:38)
[2017-02-01] MEDS: LACTOBACILLUS RHAMNOSUS GG 1 EACH CAP PO SCH (08:38)
[2017-02-01] MEDS: DOCUSATE SODIUM 100 MG GELCAP PO SCH ×2 (08:39→20:41)
[2017-02-01] MEDS: ATORVASTATIN 20 MG TAB PO SCH (08:39)
[2017-02-01] MEDS: MAGNESIUM CHLORIDE 64 MG TABEC PO SCH (08:39)
[2017-02-01] MEDS: CITALOPRAM 20 MG TAB PO SCH (08:39)
[2017-02-01] MEDS: FLUTICASONE NASAL 50 MCG/ACTUATION 16 GM BTL NS SCH (08:40)
--- NOTE | 2017-02-01 11:29 | NUR ---
DR HADDAD MADE AWARE OF LATEST MAGNESIUM LEVEL AT 1.7, MD TO PUT ORDER.
[2017-02-01] MEDS ORDERED: MAGNESIUM OXIDE 400 MG TAB PO SCH (14:15)
[2017-02-01 15:56] VITALS: BP 112/66
[2017-02-01] MEDS: LEVOFLOXACIN 750 MG/D5W PREMIX 150 ML IV SCH (16:06)
[2017-02-01] MEDS: NACL 0.9% 1,000 ML IV SCH (16:11)
--- NOTE | 2017-02-01 19:22 | NUR ---
PT KEPT CLEAN, DRY AND COMFORTABLE, NEEDS ATTENDED. ENDORSED TO NEXT SHIFT, PT ON STABLE CONDITION. FOR CONTINUITY OF CARE.
--- NOTE | 2017-02-01 19:25 | NUR ---
RECEIVED REPORT FROM AM RN AT BEDSIDE, PT IS AAOX4, ABLE TO FOLLOW COMMANDS AND MAKE NEEDS KNOWN. NO S/S OF DISTRESS, CLEAR LUNG SOUNDS, ON RA. DENIES CHEST PAIN, REGULAR HR. SOFT ABDOMEN WITH ACTIVE BOWEL SOUNDS, CONTINENT WITH B&B'S, ABLE TO MOVE ALL EXTREMITIES, STABLE GAIT. PERIPHERAL LINE TO LEFT AC 20GA RUNNING NS AT 50 ML/HR, PERIPHERAL LINE TO RIGHT FOREARM 20GA, SL. SKIN IS INTACT, WARM AND DRY TO TOUCH. VSS, DENIES PAIN. SAFETY PRECAUTION IN PLACE, WILL CONTINUE TO MONITOR.
[2017-02-01 20:00] VITALS: BP 112/70
--- NOTE | 2017-02-01 20:12 | NUR ---
PT REFUSED HHNT AT THIS TIME , HE SAID THAT HE HAD ALREADY FOR TODAY , TO COME BACK AT 2300 FOR THE CPAP, PT IS NOT IN ANY DISTRESS AND SAT IS 98% IN ROOM AIR
[2017-02-01] MEDS: QUEtiapine FUMARATE 25 MG TAB PO SCH (20:40)
[2017-02-01] MEDS: traZODone 50 MG TAB PO SCH (20:40)
[2017-02-01] MEDS: LISINOPRIL 10 MG TAB PO SCH (20:40)
[2017-02-01] MEDS: LORazepam 1 MG TAB PO PRN (22:19)
--- NOTE | 2017-02-01 22:20 | NUR ---
PT IS AGITATED, KEEP REPEATING WORDS AND MUMBLING, REQUESTS ATIVAN, ATIVAN GIVEN, WILL CONTINUE TO MONITOR.
[2017-02-02] VITALS: BP 118/70
--- NOTE | 2017-02-02 | NUR ---
PT IS STILL AWAKE, PUTTING B-PAP ON AND OFF, NO S/S OF DISTRESS, VSS.
--- NOTE | 2017-02-02 02:28 | NUR ---
REPORT GIVEN TO TRACE FOR CONTINUE OF CARE, PT IS IN STABLE CONDITION AT THIS TIME.
--- NOTE | 2017-02-02 02:29 | NUR ---
RECEIVED REPORT FROM LUKE ANAYA, PT STABLE, NO DISTRESS NOTED, SLEEPING, EASY TO AROUSE, REPORTED HAVING NO PAIN, CALL LIGHT WITHIN REACH, WILL CONTINUE TO MONITOR.
--- NOTE | 2017-02-02 02:45 | NUR ---
PT STEEL WITH THE CPAP MASK.,BUT PT IS NOT FALLOW THE DIRECTION AND HIS MOVING THE MASK ALL THE TIME
--- NOTE | 2017-02-02 03:11 | NUR ---
HELPED PT UP TO USE TO URINAL, PT TOLERATED WELL, WENT BACK TO BED, LEFT RESTING, NO DISTRESS NOTED, CALL LIGHT WITHIN REACH, WILL CONTINUE TO MONITOR.
[2017-02-02] MEDS: CLINDAMYCIN 600 MG in DEXTROSE 5% 50 ML IV SCH ×2 (05:35→11:33)
--- NOTE | 2017-02-02 06:24 | NUR ---
PT REFUSED BLOOD DRAW AT THIS TIME, SAID "TO COME BACK LATER, I NEED TO SLEEP"
--- NOTE | 2017-02-02 07:19 | NUR ---
GAVE BEDSIDE REPORT TO DAY SHIFT NURSE ASHANTI RN, PT STABLE, NO DISTRESS NOTED.
--- NOTE | 2017-02-02 07:20 | NUR ---
RECEIVED REPORT FROM SERVICE MEMBER NURSE. PATIENT IN STABLE CONDITION. NO DISTRESS NOTED. RESPIRATIONS EVEN, UNLABORED ON ROOM AIR. DENIES ANY PAIN AND DYSPNEA AT THIS TIME. AAOX4, CALM, COOPERATIVE, SKIN COLOR APPROPRIATE TO ETHNICITY, WARM TO TOUCH. LUNGS ARE CLEAR ON ALL LOBES. IV IS INTACT, PATENT, AND INFUSING IVF PER ORDERS. HAS RIGHT UE REDNESS, HOWEVER, SKIN IS INTACT. ABDOMEN SOFT, NON-DISTENDED. REVIEWED PLAN OF CARE WITH PATIENT. PATIENT VERBALIZED UNDERSTANDING. SAFETY MEASURES IN PLACE, CALL LIGHT WITHIN REACH. WILL CONTINUE TO MONITOR.
[2017-02-02] MEDS: ALBUTEROL SULFATE/IPRATROPIU 3 ML SOL IH SCH ×2 (07:55→13:29)
[2017-02-02 08:00] VITALS: BP 122/71
[2017-02-02 09:02] LABS: BASOPHILS # (AUTO) 0.1 K/uL (0.00-0.22); BASOPHILS % (AUTO) 1.4 % (0.0-2.0); EOSINOPHILS # (AUTO) 0.4 K/uL (0-0.4); EOSINOPHILS % (AUTO) 8.2 % (0.0-4.0); HEMATOCRIT 37.4 % (36-52); HEMOGLOBIN 12.5 g/dL (12.0-18.0); LYMPHOCYTES # (AUTO) 1.7 K/uL (2.0-11.5); LYMPHOCYTES % (AUTO) 32.2 % (20.5-51.1); MEAN CORPUSCULAR HEMOGLOBIN 31 pg (27-31); MEAN CORPUSCULAR HGB CONC 34 g/dL (33-37); MEAN CORPUSCULAR VOLUME 93 fL (80-94); MONOCYTES # (AUTO) 0.2 K/uL (0.8-1.0); MONOCYTES % (AUTO) 4.5 % (1.7-9.3); NEUTROPHILS % (AUTO) 53.7 % (42.2-75.2); PLATELET COUNT (AUTO) 301 K/uL (140-450); RED BLOOD CELL COUNT(AUTO) 4.01 MIL/uL (4.20-6.10); RED CELL DISTRIBUTION WIDTH 13.9 % (11.6-13.7); WHITE BLOOD COUNT (AUTO) 5.4 K/uL (4.8-10.8)
[2017-02-02 09:17] LABS: ANION GAP 11.3 (8-16); CARBON DIOXIDE 28.5 mmol/L (21-32); CHLORIDE 105 mmol/L (98-107); CREATININE 1.1 mg/dL (0.7-1.3); GLUCOSE 130 mg/dL (74-106); POTASSIUM 3.8 mmol/L (3.5-5.1); SODIUM SERUM 141 mmol/L (136-145); UREA NITROGEN, BLOOD 19 mg/dL (7-18)
[2017-02-02] MEDS: PANTOPRAZOLE 40 MG INJ VIAL IVP SCH (09:29)
[2017-02-02] MEDS: DOCUSATE SODIUM 100 MG GELCAP PO SCH (09:30)
[2017-02-02] MEDS: ATORVASTATIN 20 MG TAB PO SCH (09:30)
[2017-02-02] MEDS: MAGNESIUM CHLORIDE 64 MG TABEC PO SCH (09:30)
[2017-02-02] MEDS: CITALOPRAM 20 MG TAB PO SCH (09:30)
[2017-02-02] MEDS: LACTOBACILLUS RHAMNOSUS GG 1 EACH CAP PO SCH (09:30)
--- NOTE | 2017-02-02 09:40 | NUR ---
PATIENT SITTING IN BED COMFORTABLY, LISTENING TO THE RADIO. NO DISTRESS NOTED. DENIES ANY PAIN AT THIS TIME. PATIENT LYING IN BED LISTENING TO THE RADIO. NO DISTRESS NOTED. RESPIRATIONS EVEN, UNLABORED, ON ROOM AIR. MEDICATIONS DUE GIVEN. PATIENT AMBULATED TO BATHROOM AND BACK TO BED WITH STEADY GAIT. CONDITION UNCHANGED. SAFETY MEASURES IN PLACE, CALL LIGHT WITHIN REACH. WILL CONTINUE TO MONITOR.
[2017-02-02] MEDS: FLUTICASONE NASAL 50 MCG/ACTUATION 16 GM BTL NS SCH (09:43)
[2017-02-02] MEDS ORDERED: LACT10CA PO (10:58)
[2017-02-02] MEDS ORDERED: CLIN300C6 PO (10:58)
[2017-02-02] MEDS ORDERED: LEVO750T2 PO (10:58)
--- NOTE | 2017-02-02 11:35 | NUR ---
PATIENT LYING IN BED COMFORTABLY LISTENING TO HIS RADIO. NO DISTRESS NOTED. DENIES ANY PAIN OR DYSPNEA. RESPIRATIONS EVEN, UNLABORED, ON ROOM AIR. CONDITION UNCHANGED. MEDICATIONS DUE GIVEN. PATIENT BEING DISCHARGED HOME TODAY. FAMILY MEMBER ARE ABLE TO HOME SERVICE DIRECTOR PATIENT FROM HOSPITAL AT 1300. SAFETY MEASURES IN PLACE, CALL LIGHT WITHIN REACH. WILL CONTINUE TO MONITOR.
[2017-02-02] MEDS ORDERED: INFLUENZA VIRUS VACCINE QUAD 0.5 ML SYR IMVAC SCH (11:45)
[2017-02-02] MEDS ORDERED: MAGNESIUM OXIDE 400 MG TAB PO SCH (12:00)
--- NOTE | 2017-02-02 12:15 | NUR ---
PATIENT SITTING IN BED WATCHING TV. NO DISTRESS NOTED. CONDITION UNCHANGED. MEDICATIONS DUE GIVEN, FLU VACCINE GIVEN PER PATIENT REQUESTS. HOME MEDICATIONS FROM PHARMACY PICKED UP AND GIVEN TO PATIENT. PATIENT IS TO BE DISCHARGED HOME TODAY VIA PRIVATE VEHICLE BY FAMILY MEMBER. PATIENT VERBALIZED UNDERSTANDING. PATIENT'S FAMILY MEMBER TO ARRIVE AT 1300 TO TAKE PATIENT HOME. SAFETY MEASURES IN PLACE, CALL LIGHT WITHIN REACH. WILL CONTINUE TO MONITOR.
--- NOTE | 2017-02-02 13:00 | NUR ---
PATIENT SITTING IN BED ALL DRESSED UP AND READY TO GO HOME. ALL BELONGINGS WITH PATIENT. PROVIDED DISCHARGE INSTRUCTIONS/EDUCATION, FOLLOW-UP VISIT, NEW/CHANGED MEDICATIONS, AND PNEUMONIA DIAGNOSIS TEACHING TO PATIENT IN PREFERRED LANGUAGE OF MALAY. ANSWERED ALL PATIENT'S QUESTIONS. PATIENT VERBALIZED COMPLETE UNDERSTANDING. IV LINE REMOVED WITH MINIMAL BLOOD AND LUMEN COMPLETELY INTACT. ID BANDS REMOVED. PATIENT REFUSED WHEELCHAIR DOWN TO [facility]. ABLE TO AMBULATE WITH STEADY GAIT. ALL PATIENT BELONGINGS WITH PATIENT. PATIENT'S FAMILY MEMBER WAITING FOR HIM IN THE CAR AT [facility]. ESCORTED PATIENT DOWN TO [facility] VIA AMBULATION. PATIENT DISCHARGED TO HOME IN STABLE CONDITION VIA PRIVATE VEHICLE WITH FAMILY MEMBER.
== END 2017-02-02 13:00 | disposition home or self-care (01) | DRG 177 ==
LOC: MED 15:45 → MTU 17:22
PROVIDERS: ADMIT Family Medicine; ATTEND Family Medicine
PROC: 5A09357 Assistance with Respiratory Ventilation, Less than 24 Consecutive Hours, Continuous Positive Airway Pressure (ICD-10-PCS; 2017-01-29)
PROC: 5A09357 Assistance with Respiratory Ventilation, Less than 24 Consecutive Hours, Continuous Positive Airway Pressure (ICD-10-PCS; 2017-01-30)
PROC: 5A09357 Assistance with Respiratory Ventilation, Less than 24 Consecutive Hours, Continuous Positive Airway Pressure (ICD-10-PCS; 2017-01-31)
PROC: 5A09357 Assistance with Respiratory Ventilation, Less than 24 Consecutive Hours, Continuous Positive Airway Pressure (ICD-10-PCS; 2017-02-01)
PROC: 3E0234Z Introduction of Serum, Toxoid and Vaccine into Muscle, Percutaneous Approach (ICD-10-PCS; principal; 2017-02-02)
PROC: 5A09357 Assistance with Respiratory Ventilation, Less than 24 Consecutive Hours, Continuous Positive Airway Pressure (ICD-10-PCS; 2017-02-02)
DX: J69.0 Pneumonitis due to inhalation of food and vomit (principal); N17.0 Acute kidney failure with tubular necrosis; J96.01 Acute respiratory failure with hypoxia; E44.0 Moderate protein-calorie malnutrition; J44.0 Chronic obstructive pulmonary disease with (acute) lower respiratory infection; E83.42 Hypomagnesemia; E78.5 Hyperlipidemia, unspecified; G47.33 Obstructive sleep apnea (adult) (pediatric); I10 Essential (primary) hypertension; F15.10 Other stimulant abuse, uncomplicated; F14.10 Cocaine abuse, uncomplicated; F10.10 Alcohol abuse, uncomplicated; G47.00 Insomnia, unspecified; F99 Mental disorder, not otherwise specified; D64.9 Anemia, unspecified; F41.1 Generalized anxiety disorder; H53.8 Other visual disturbances; Z87.891 Personal history of nicotine dependence; Z68.27 Body mass index [BMI] 27.0-27.9, adult; Z90.49 Acquired absence of other specified parts of digestive tract; Z79.899 Other long term (current) drug therapy; Z79.2 Long term (current) use of antibiotics; Z23 Encounter for immunization
CPT/HCPCS: 36415; 70450; 71010; 71270; 80048; 80053; 80305; 81003; 82140; 82150; 83036; 83605; 83690; 83735; 83880; 84100; 84439; 84443; 84484; 85025; 85610; 85730; 87040; 87081; 90658; 94640; 96365; 99285; C9113; J1956; J3490; J7030; J7060; J7620; Q0092; Q9967

== ENCOUNTER 2017-02-03 13:49 | Emergency (ER) | payer OTHER ==
[~2017-02-03] VITALS: Ht 167.6 cm; Wt 77.1 kg
[2017-02-03 13:51] VITALS: BP 134/74
--- NOTE | 2017-02-03 15:37 | NUR ---
PATIENT WAS SHOWN TO BED 8 AND THEN DECIDED TO LEAVE AND TURNED AROUND AND WALKED OUT.
== END 2017-02-03 15:37 | disposition left against medical advice (07) ==
LOC: MED 13:49
DX: R06.02 Shortness of breath (principal); Z53.21 Procedure and treatment not carried out due to patient leaving prior to being seen by health care provider

== ENCOUNTER 2017-02-16 10:31 | Emergency (ER) | payer OTHER ==
[~2017-02-16] VITALS: Ht 167.6 cm; Wt 77.1 kg
[2017-02-16 10:36] VITALS: BP 130/74
--- NOTE | 2017-02-16 10:45 | NUR ---
Note shaione in EDM - 02/16/17 at 1048 by TAURUS 82M BIB SELF WITH C/O SOB SINCE THIS AM; PT STS HE "WOKE UP WITH THE SOB"; RR ARE EVEN AND UNLABORED; PULSE OX=96% ON RA; PT SPEAKING IN FULL SETENCES W/O DIFFICULTLY; PT DENIES ANY CP OR PAIN AT THIS TIME; PT IS AOX4; ARMANDO FIERRO BY BEDSIDE EXAMINING PT; PT POSITIONED TO COMFORT, BED DOWN. NAD. ALL NEEDS MET AT THIS TIME. WILL CONTINUE TO MONITO.R
--- NOTE | 2017-02-16 10:45 | NUR ---
82M BIB SELF WITH C/O SOB SINCE THIS AM; PT STS HE "WOKE UP WITH THE SOB...SOB OCCURS RANDOMLY"; RR ARE EVEN AND UNLABORED; PULSE OX=96% ON RA; PT SPEAKING IN FULL SETENCES W/O DIFFICULTLY; PT DENIES ANY CP OR PAIN AT THIS TIME; PT IS AOX4; ARMANDO FIERRO BY BEDSIDE EXAMINING PT; PT POSITIONED TO COMFORT, BED DOWN. NAD. ALL NEEDS MET AT THIS TIME. WILL CONTINUE TO MONITOR
[2017-02-16] MEDS ORDERED: ALBUTEROL SULFATE/IPRATROPIU 3 ML SOL IH ONE (10:50)
--- NOTE | 2017-02-16 10:54 | NUR ---
XRAY BY BEDSIDE
--- NOTE | 2017-02-16 10:59 | NUR ---
RT BY BEDSIDE
[2017-02-16 11:34] VITALS: BP 128/78
--- NOTE | 2017-02-16 11:34 | NUR ---
Patient discharged with v/s stable. Written and verbal after care instructions given and explained. Patient verbalized understanding. Ambulatory with steady gait. All questions addressed prior to discharge. Advised to follow up with PMD.
== END 2017-02-16 11:34 | disposition home or self-care (01) ==
LOC: MED 10:31
DX: J44.9 Chronic obstructive pulmonary disease, unspecified (principal); I10 Essential (primary) hypertension; F41.9 Anxiety disorder, unspecified; E78.5 Hyperlipidemia, unspecified; Z90.89 Acquired absence of other organs; Z79.899 Other long term (current) drug therapy; Z87.891 Personal history of nicotine dependence
CPT/HCPCS: 36600; 71010; 82803; 93005; 94640; 99285; J7620; Q0092

== ENCOUNTER 2018-03-06 10:48 | Inpatient (IN) | payer OTHER ==
[~2018-03-06] VITALS: Ht 165.1 cm; Wt 67.8 kg
[2018-03-06 10:53] VITALS: BP 141/70
--- NOTE | 2018-03-06 10:59 | NUR ---
PT AMBULATES TO BED 3
--- NOTE | 2018-03-06 11:00 | NUR ---
PATIENT PRESENTS TO ED WITH C/O LOWER BACK PAIN X 2 DAYS; DENIES INJURY OR DYSURIA AT THIS TIME; DENIES N/V; SKIN IS PINK/WARM/DRY; AAOX4 WITH EVEN AND STEADY GAIT; PATIENT STATES PAIN OF 5/10 AT THIS TIME;PATIENT POSITIONED FOR COMFORT; HOB ELEVATED; BEDRAILS UP X2; BED DOWN. ER MD MADE AWARE OF PT STATUS.
[2018-03-06] MEDS ORDERED: NACL 0.9% 1,000 ML IV SCH ×2 (11:59→12:48)
[2018-03-06 12:45] LABS: BASOPHILS # (AUTO) 0.1 K/uL (0.00-0.22); BASOPHILS % (AUTO) 0.9 % (0.0-2.0); EOSINOPHILS # (AUTO) 0.2 K/uL (0-0.4); EOSINOPHILS % (AUTO) 3.8 % (0.0-4.0); HEMATOCRIT 45.6 % (36-52); HEMOGLOBIN 14.9 g/dL (12.0-18.0); LYMPHOCYTES # (AUTO) 1.7 K/uL (2.0-11.5); LYMPHOCYTES % (AUTO) 26.9 % (20.5-51.1); MEAN CORPUSCULAR HEMOGLOBIN 31 pg (27-31); MEAN CORPUSCULAR HGB CONC 33 g/dL (33-37); MEAN CORPUSCULAR VOLUME 96.2 fL (80-94); MONOCYTES # (AUTO) 0.4 K/uL (0.8-1.0); NEUTROPHILS # (AUTO) 3.9 K/uL (1.8-7.7); NEUTROPHILS % (AUTO) 62.4 % (42.2-75.2); PLATELET COUNT (AUTO) 273 K/uL (140-450); RED BLOOD CELL COUNT(AUTO) 4.74 MIL/uL (4.20-6.10); RED CELL DISTRIBUTION WIDTH 13.8 % (11.6-13.7); WHITE BLOOD COUNT (AUTO) 6.2 K/uL (4.8-10.8)
[2018-03-06] MEDS ORDERED: DOCUSATE SODIUM 100 MG GELCAP PO PRN (12:50)
[2018-03-06] MEDS ORDERED: ACETAMINOPHEN 325 MG TAB PO PRN (12:50)
[2018-03-06] MEDS ORDERED: HYDROcodone/APAP 7.5/325 MG 1 TAB PO PRN (12:50)
[2018-03-06] MEDS ORDERED: ONDANSETRON 4 MG/2 ML VIAL IM/IVP PRN (12:50)
--- NOTE | 2018-03-06 12:56 | NUR ---
PT RESTING COMFORTABLY ON BED;
[2018-03-06 13:07] LABS: ANION GAP 8.8 (8-16); CARBON DIOXIDE 32.8 mmol/L (21-32); CHLORIDE 100 mmol/L (98-107); CREATININE 1.1 mg/dL (0.7-1.3); GLUCOSE 102 mg/dL (74-106); POTASSIUM 4.6 mmol/L (3.5-5.1); SODIUM SERUM 137 mmol/L (136-145); UREA NITROGEN, BLOOD 15 mg/dL (7-18)
[2018-03-06 13:16] LABS: PROTHROMBIN TIME 9.9 secs (10.8-13.4)
[2018-03-06 13:17] LABS: APPEARANCE,URINE CLEAR (CLEAR); BILIRUBIN,URINE NEGATIVE (NEGATIVE); BLOOD, URINE NEGATIVE (NEGATIVE); COLOR,URINE YELLOW (YELLOW); LEUKOCYTE ESTERASE ,URINE NEGATIVE (NEGATIVE); NITRITE, URINE NEGATIVE (NEGATIVE); UGLUCOSE NEGATIVE (NEGATIVE)
[2018-03-06 13:19] LABS: BARBITURATE, URINE NEG. ng/ml (NEG <=200); BENZODIAZEPINE, URINE NEG. ng/mL (NEG <=200); CANNABINOID, URINE NEG. ng/mL (NEG <=50); COCAINE, URINE NEG. ng/mL (NEG <=300); OPIATE, URINE NEG. ng/mL (NEG <=2000); PHENCYCLIDINE SCREEN,URINE NEG. ng/mL (NEG <=25)
[2018-03-06 13:19] LABS: ALBUMIN 3.7 g/dL (3.4-5.0); AMYLASE 59 U/L (25-115); ASPARTATE AMINOTRANSFERASE 12 U/L (15-37); LIPASE 182 U/L (73-393); TOTAL BILIRUBIN 0.4 mg/dL (0.0-1.0)
--- NOTE | 2018-03-06 13:21 | NUR ---
PT UNABLE RECALL MEDICATION HE IS TAKING AT HOME.
[2018-03-06 13:31] LABS: CHOL/HDL RATIO 3.4 (1-4.5); FREE T4 (FREE THYROXINE) 1.3 ng/dL (0.76-1.46); MAGNESIUM 1.8 mg/dL (1.8-2.4); PHOSPHORUS 3.1 mg/dL (2.5-4.9); THYROID STIMULATING HORMONE 1.16 uIU/mL (0.34-3.74)
--- NOTE | 2018-03-06 13:32 | NUR ---
PT TAKEN TO MED FLOOR BY JACLYN WRIGHT AND YANN MCCONNELL
--- NOTE | 2018-03-06 13:46 | NUR ---
Patient will be admitted to care of DR RODARTE. Admited to MED SURG. Will go to [id number]. Belongings list completed.
[2018-03-06] MEDS ORDERED: LISI-420 PO (13:56)
[2018-03-06] MEDS ORDERED: ASPI81CT89 PO (13:56)
[2018-03-06] MEDS ORDERED: TAMSULOSIN 0.4 MG CAP PO SCH (14:30)
[2018-03-06] MEDS ORDERED: FINASTERIDE 5 MG TAB PO SCH (14:30)
--- NOTE | 2018-03-06 14:30 | NUR ---
PT ALSO C/O ABOUT VISION LOSS, HOWEVER PT IS WATCHING TV. ALSO BROUGHT HAM SANDWICH AND ORANGE JUICE FOR PT. PT WAS ABLE TO PUT STRAW INTO THE JUICE BOX.
--- NOTE | 2018-03-06 14:35 | NUR ---
ORTHOSTATIC BP DONE, SUPINE 137/70 HR 61, SITTING, 128/79 HR 83, STANDING 133/74 HR 90.
--- NOTE | 2018-03-06 15:00 | NUR ---
PT REFUSED HIS MEDS, FLOMAX AND PROSCAR, EXPLAINED BENEFITS AND RISKS OF THE MEDS. PT STATED HE DOESN'T NEED THEM. NOTIFIED DR OWENS. DR OWENS SEEN THE PT, PERFORMED OCCULT BLOOD AND PROSTATE EXAM. OCCULT BLOOD IS NEGATIVE. PT AGREED TO TAKE ONLY PROSCAR.
--- NOTE | 2018-03-06 15:15 | NUR ---
IV CATH ON LEFT AC, 20G, PATENT AND INTACT, STARTED IVF NS AT 100ML/HR.
--- NOTE | 2018-03-06 15:20 | NUR ---
RECEIVED PT REPORT FROM ER NURSE. PT IS AAOX3-4, KNOWS IT'S FEB 2018 BUT NOT THE DATE. PT IS AMBULATORY, NO S/S OF DISTRESS ON RM AIR. CC: BACK PAIN. DX ALOC. ORIENTED PT TO RM. PT VERBALIZED UNDERSTANDING. CALL LIGHT IS WITHIN REACH. MRSA SWAB DONE. VITALS TAKEN. PT PREFERS TO SIT IN THE CHAIR. WILL CONTINUE TO MONITOR. Addendum: 03/06/18 at 1816 by Deric Estrada RN WRONG TIME ENTERED, CORRECT TIME IS 1420
--- NOTE | 2018-03-06 15:45 | NUR ---
NOTIFIED DR OWENS THAT PT STATED HE HAS HX OF SLEEP APNEA, AND USING HEAD-CHIN STRAPS AT HOME. DR OWENS ORDERED CPAP AND RT SERVICE.
--- NOTE | 2018-03-06 15:47 | NUR ---
MADE PT AWARE THAT WILL OBTAINED K PAD FOR HIS BACK PAIN. PT VERBALIZED UNDERSTANDING.
[2018-03-06 16:00] VITALS: BP 131/80
--- NOTE | 2018-03-06 16:25 | NUR ---
PT STANDING RIGHT OUTSIDE HIS ROOM AND STATED HIS VISION IS DOWN TO 10%, IT WAS 70% WHEN HE CAME TO THE HOSPITAL. ASKED PT IF HE KNOWS WHAT TIME IT IS RIGHT NOW. PT WENT BACK TO HIS ROOM AND LOOKED AT THE CLOCK, SAID 4:25PM. TOLD PT THAT THE DR IS AWARE OF HIS VISION CHANGE AND WAITING FOR HEAD CT RESULT.
--- NOTE | 2018-03-06 16:45 | NUR ---
PT STATED HE WANT TO GO HOME, BECAUSE THE ENVIRONMENT IS MAKING HIM GOING BLIND. ASKED PT IF HE WANTS THE LIGHT ON, PT SAID NO, TOLD PT THAT WE WANT TO MONITOR HIM FOR TONIGHT. PT STATED HE RATHER BECOME BLIND AT HOME THAN IN THE HOSPITAL. PT STATED IF HE WAKES UP TOMORROW MORNING AND BECOME BLIND, HE WILL [facility]YA THE HOSPITAL. PT WANTS TO CALL HIS ROOMMATE (FRIEND) CASA AND GO HOME. DIALED PT'S FRIEND'S NUMBER FOR HIM. ALSO NOTIFIED DR OWENS.
--- NOTE | 2018-03-06 17:10 | NUR ---
DR OWENS TALKED TO PT. AMA FORM SIGNED. PROSCAR RX PROVIDED. IV CATH DC'D, TIP INTACT, PRESSURE APPLIED. PT DRESSED UP BY HIMSELF. WALKED WITH PT TO LOBBY. NO S/S OF ACUTE DISTRESS. GAIT STEADY. PT'S FRIEND CASA IS PICKING UP PT.
--- NOTE | 2018-03-06 19:26 | NUR ---
RIR REPORT FOR AMA FILED, Unique Id: [id number]
[2018-03-07] MEDS ORDERED: TAMSULOSIN 0.4 MG CAP PO SCH (08:30)
[2018-03-07] MEDS ORDERED: LISINOPRIL 20 MG TAB PO SCH (09:00)
[2018-03-07] MEDS ORDERED: FINASTERIDE 5 MG TAB PO SCH (09:00)
[2018-03-07] MEDS ORDERED: ASPIRIN 81 MG TAB.CHEW PO SCH (09:00)
[2018-03-09 11:50] LABS: T4 (THYROXINE) 7.5 ug/dL (4.5 - 12.0)
== END 2018-03-06 17:20 | disposition left against medical advice (07) | DRG 74 ==
LOC: MED 10:48 → MTU 12:48
PROVIDERS: ADMIT General Practice; ATTEND General Practice
DX: G90.9 Disorder of the autonomic nervous system, unspecified (principal); N40.0 Benign prostatic hyperplasia without lower urinary tract symptoms; I10 Essential (primary) hypertension; H35.30 Unspecified macular degeneration; G89.29 Other chronic pain; I45.10 Unspecified right bundle-branch block; Z53.21 Procedure and treatment not carried out due to patient leaving prior to being seen by health care provider; H54.7 Unspecified visual loss; Z90.49 Acquired absence of other specified parts of digestive tract; Z79.82 Long term (current) use of aspirin
CPT/HCPCS: 36415; 70450; 71045; 80053; 80305; 81003; 82150; 82550; 83036; 83690; 83735; 83880; 84100; 84436; 84439; 84443; 84479; 84484; 85025; 85610; 85730; 93005; 96360; 99285; J7030

== ENCOUNTER 2018-03-07 11:21 | Emergency (ER) | payer OTHER ==
[~2018-03-07] VITALS: Ht 162.6 cm; Wt 68.0 kg
[~2018-03-07 11:21] MED LIST changes: -ALBU0.0912 IH; +ASPI81CT89 PO; -ATOR20TA40 PO; -CLIN300C6 PO; -LACT10CA PO; -LEVO750T2 PO; +LISI-420 PO; -LISI10TA11 PO; -TAMS0.4C96 PO
[2018-03-07 11:24] VITALS: BP 124/80
--- NOTE | 2018-03-07 11:26 | NUR ---
PT AMBULATES TO BED 2
--- NOTE | 2018-03-07 11:30 | NUR ---
PATIENT PRESENTS TO THE ED WITH C/O LOWER BACK PAIN 10/23. PATIENT STATES THAT HE WAS SEEN YESTERDAY AND WAS ABOUT TO BE ADMITTED BUT HE HAD TO SIGN AMA BECAUSE HE NEEDS HIS CHIN STRAPS FOR HIS SLEEP APNEA. DENIES N/V/D; SKIN IS PINK/WARM/DRY; AAOX4 WITH EVEN AND STEADY GAIT; LUNGS CLEAR BL; HR EVEN AND REGULAR; PT DENIES ANY FEVER, CP, SOB, OR COUGH AT THIS TIME; PATIENT STATES PAIN OF 8/10 AT THIS TIME; VSS; PATIENT POSITIONED FOR COMFORT; HOB ELEVATED; BEDRAILS UP X2; BED DOWN. ER MD MADE AWARE OF PT STATUS.
--- NOTE | 2018-03-07 11:43 | NUR ---
Patient being evaluated by physician at bedside.
[2018-03-07] MEDS ORDERED: NACL 0.9% 1,000 ML IV ONE (11:50)
[2018-03-07] MEDS ORDERED: KETOROLAC 30 MG/ML VIAL IVP ONE (11:50)
[2018-03-07 12:29] LABS: BASOPHILS % (AUTO) 0.7 % (0.0-2.0); EOSINOPHILS # (AUTO) 0.2 K/uL (0-0.4); HEMATOCRIT 41.4 % (36-52); HEMOGLOBIN 13.5 g/dL (12.0-18.0); LYMPHOCYTES # (AUTO) 1.4 K/uL (2.0-11.5); LYMPHOCYTES % (AUTO) 23.5 % (20.5-51.1); MEAN CORPUSCULAR HEMOGLOBIN 31 pg (27-31); MEAN CORPUSCULAR HGB CONC 33 g/dL (33-37); MEAN CORPUSCULAR VOLUME 95.9 fL (80-94); MONOCYTES # (AUTO) 0.4 K/uL (0.8-1.0); MONOCYTES % (AUTO) 7.2 % (1.7-9.3); NEUTROPHILS # (AUTO) 3.7 K/uL (1.8-7.7); NEUTROPHILS % (AUTO) 64.6 % (42.2-75.2); PLATELET COUNT (AUTO) 256 K/uL (140-450); RED BLOOD CELL COUNT(AUTO) 4.32 MIL/uL (4.20-6.10); RED CELL DISTRIBUTION WIDTH 13.7 % (11.6-13.7); WHITE BLOOD COUNT (AUTO) 5.8 K/uL (4.8-10.8)
[2018-03-07 12:30] LABS: APPEARANCE,URINE CLEAR (CLEAR); BILIRUBIN,URINE NEGATIVE (NEGATIVE); BLOOD, URINE NEGATIVE (NEGATIVE); COLOR,URINE YELLOW (YELLOW); LEUKOCYTE ESTERASE ,URINE NEGATIVE (NEGATIVE); NITRITE, URINE NEGATIVE (NEGATIVE); UGLUCOSE NEGATIVE (NEGATIVE)
[2018-03-07 12:38] LABS: ANION GAP 8.9 (8-16); CARBON DIOXIDE 31.4 mmol/L (21-32); CHLORIDE 102 mmol/L (98-107); GLUCOSE 94 mg/dL (74-106); POTASSIUM 4.3 mmol/L (3.5-5.1); SODIUM SERUM 138 mmol/L (136-145); UREA NITROGEN, BLOOD 18 mg/dL (7-18)
[2018-03-07 12:44] LABS: ALBUMIN 3.5 g/dL (3.4-5.0); ASPARTATE AMINOTRANSFERASE 14 U/L (15-37); TOTAL BILIRUBIN 0.4 mg/dL (0.0-1.0)
[2018-03-07 12:46] LABS: PROTHROMBIN TIME 9.8 secs (10.8-13.4)
[2018-03-07 13:14] VITALS: BP 124/80
--- NOTE | 2018-03-07 13:20 | NUR ---
PT FRIEND FOR PICKUP HAS BEEN CALLED 5 TIMES FOR COLOR PASTE MIXER WITH NO ANSWER, MESSAGE WAS LEFT EXPLAINING THAT PT IS DISCHARGED AND READY FOR PICKUP
--- NOTE | 2018-03-07 13:28 | NUR ---
Patient discharged with v/s stable. Written and verbal after care instructions given and explained. Patient alert, oriented and verbalized understanding of instructions. Ambulatory with steady gait. All questions addressed prior to discharge. ID band removed. Patient advised to follow up with PMD. Rx of MEDROL DOSEPAK AND TRAMADOL given. Patient educated on indication of medication including possible reaction and side effects. Opportunity to ask questions provided and answered.
== END 2018-03-07 13:28 | disposition home or self-care (01) ==
LOC: MED 11:21
DX: M54.5 Low back pain (principal); I10 Essential (primary) hypertension; Z79.82 Long term (current) use of aspirin; Z79.899 Other long term (current) drug therapy
CPT/HCPCS: 36415; 72131; 80053; 81003; 85025; 85610; 85730; 96374; 99284; J1885

== ENCOUNTER 2018-03-09 18:42 | Emergency (ER) | payer OTHER ==
[~2018-03-09] VITALS: Ht 167.6 cm; Wt 81.6 kg
[2018-03-09 18:52] VITALS: BP 143/85
--- NOTE | 2018-03-09 18:52 | NUR ---
PATIENT AMBULATED TO LOBBY STEADY GAIT/NO DIFFICULTY. NO AVAIL. BED AT THIS TIME.
--- NOTE | 2018-03-09 19:27 | NUR ---
PATIENT WAS CALLED PUT ON BED #11 BUT HE REFUSED TO BE SEEN BY ERMD. PATIENT LEFT WITHOUT BEING SEEN BY DR. JERRY. NO FURTHER CARE PROVIDED FOR PATIENT.
== END 2018-03-09 19:27 | disposition left against medical advice (07) ==
LOC: MED 18:42
DX: M54.9 Dorsalgia, unspecified (principal); Z53.21 Procedure and treatment not carried out due to patient leaving prior to being seen by health care provider

== ENCOUNTER 2018-03-26 11:05 | Emergency (ER) | payer OTHER ==
[~2018-03-26] VITALS: Ht 170.2 cm; Wt 68.5 kg
[2018-03-26 11:08] VITALS: BP 147/87
[2018-03-26 11:55] LABS: BASOPHILS % (AUTO) 0.4 % (0.0-2.0); EOSINOPHILS # (AUTO) 0.1 K/uL (0-0.4); HEMOGLOBIN 13.6 g/dL (12.0-18.0); MEAN CORPUSCULAR HEMOGLOBIN 31 pg (27-31); MEAN CORPUSCULAR HGB CONC 33 g/dL (33-37); MEAN CORPUSCULAR VOLUME 94.3 fL (80-94); MONOCYTES # (AUTO) 0.6 K/uL (0.8-1.0); MONOCYTES % (AUTO) 5.7 % (1.7-9.3); NEUTROPHILS # (AUTO) 8.6 K/uL (1.8-7.7); NEUTROPHILS % (AUTO) 82.9 % (42.2-75.2); PLATELET COUNT (AUTO) 297 K/uL (140-450); RED BLOOD CELL COUNT(AUTO) 4.35 MIL/uL (4.20-6.10); RED CELL DISTRIBUTION WIDTH 13.1 % (11.6-13.7); WHITE BLOOD COUNT (AUTO) 10.4 K/uL (4.8-10.8)
[2018-03-26 11:57] LABS: APPEARANCE,URINE HAZY (CLEAR); BILIRUBIN,URINE NEGATIVE (NEGATIVE); BLOOD, URINE NEGATIVE (NEGATIVE); COLOR,URINE YELLOW (YELLOW); LEUKOCYTE ESTERASE ,URINE NEGATIVE (NEGATIVE); NITRITE, URINE NEGATIVE (NEGATIVE); UGLUCOSE NEGATIVE (NEGATIVE)
[2018-03-26 12:19] LABS: CHLORIDE 103 mmol/L (98-107); POTASSIUM 3.1 mmol/L (3.5-5.1); SODIUM SERUM 141 mmol/L (136-145)
[2018-03-26 12:20] LABS: ANION GAP 8.7 (8-16); CARBON DIOXIDE 32.4 mmol/L (21-32); CREATININE 1.2 mg/dL (0.7-1.3); GLUCOSE 111 mg/dL (74-106); UREA NITROGEN, BLOOD 32 mg/dL (7-18)
[2018-03-26 12:22] LABS: ASPARTATE AMINOTRANSFERASE 11 U/L (15-37); TOTAL BILIRUBIN 0.4 mg/dL (0.0-1.0)
[2018-03-26 12:23] LABS: ALBUMIN 2.9 g/dL (3.4-5.0)
[2018-03-26] MEDS: HYDROcodone/APAP 5/325 MG 1 TAB TAB PO ONE (13:08)
[2018-03-26 13:15] VITALS: BP 133/76
== END 2018-03-26 13:15 | disposition home or self-care (01) ==
LOC: MED 11:05
DX: F41.9 Anxiety disorder, unspecified (principal); R07.9 Chest pain, unspecified; I10 Essential (primary) hypertension; Z79.82 Long term (current) use of aspirin; Z79.899 Other long term (current) drug therapy
CPT/HCPCS: 36415; 71045; 80053; 81003; 84484; 85025; 93005; 99284

== ENCOUNTER 2018-04-07 17:24 | Emergency (ER) | payer OTHER ==
[~2018-04-07] VITALS: Ht 167.6 cm; Wt 65.8 kg
[2018-04-07 17:30] VITALS: BP 128/76
--- NOTE | 2018-04-07 18:07 | NUR ---
83/M BIB, C/O PROSTATE PROBLEMS/PAIN RADIATING TO THE BACK. PER PT UNABLE TO GET HIS PRESCRIPTION D/T MONETARY ISSUES. PATIENT STATES 3/10 PAIN, CONSTANT ACHE THAT RADIATES TO HIS LOWER BACK. PATIENT DENIES DYSURIA, N/V/D, FEVER, CHILLLS, BREATHING IS EVENM AND UNLABORED. PATIENT STATES, " ONLY WHEN I COME TO THIS ER I START TO GO BLIND, I GO INTO THE LOBBY AND MY VISION COMES BACK. PATIENT DENIES TRUAMA OR INJURY, DENIES ALLERGIES.
--- NOTE | 2018-04-07 18:23 | NUR ---
Patient being evaluated by physician at bedside.
[2018-04-07] MEDS ORDERED: FINASTERIDE 5 MG TAB PO ONE (18:25)
[2018-04-07] MEDS ORDERED: TAMSULOSIN 0.4 MG CAP PO ONE (18:40)
--- NOTE | 2018-04-07 18:43 | NUR ---
WAS TOLD BY PHARMACY THAT THEY DID NOT CARRY PROSCAR, PHARMACY SENT MEDIATION, WAS ADMINISTERED AT THIS TIME.
--- NOTE | 2018-04-07 19:15 | NUR ---
REPORT RECEIVED FROM JACLYN CORMIER
--- NOTE | 2018-04-07 19:17 | NUR ---
pt states he cant leave because he has vertigo and he cannot see at this time, even though pt walked straight to me and started talking, pt seem to be walking and seeing fine at this time
[2018-04-07] MEDS ORDERED: NACL 0.9% 1,000 ML IV ONE (19:20)
--- NOTE | 2018-04-07 19:21 | NUR ---
PT TAKEN TO CT VIA MARYANN IN STABLE CONDITION
--- NOTE | 2018-04-07 19:53 | NUR ---
lab at bedside.
[2018-04-07 20:17] LABS: BASOPHILS # (AUTO) 0.1 K/uL (0.00-0.22); BASOPHILS % (AUTO) 1.2 % (0.0-2.0); EOSINOPHILS # (AUTO) 0.3 K/uL (0-0.4); EOSINOPHILS % (AUTO) 2.8 % (0.0-4.0); HEMATOCRIT 40.6 % (36-52); HEMOGLOBIN 13.8 g/dL (12.0-18.0); LYMPHOCYTES # (AUTO) 1.3 K/uL (2.0-11.5); LYMPHOCYTES % (AUTO) 11.9 % (20.5-51.1); MEAN CORPUSCULAR HEMOGLOBIN 31 pg (27-31); MEAN CORPUSCULAR HGB CONC 34 g/dL (33-37); MEAN CORPUSCULAR VOLUME 92.4 fL (80-94); MONOCYTES # (AUTO) 0.5 K/uL (0.8-1.0); MONOCYTES % (AUTO) 4.6 % (1.7-9.3); NEUTROPHILS # (AUTO) 8.7 K/uL (1.8-7.7); NEUTROPHILS % (AUTO) 79.5 % (42.2-75.2); PLATELET COUNT (AUTO) 368 K/uL (140-450); WHITE BLOOD COUNT (AUTO) 10.9 K/uL (4.8-10.8)
[2018-04-07 20:30] LABS: CARBON DIOXIDE 29.8 mmol/L (21-32); CHLORIDE 112 mmol/L (98-107); CREATININE 1.2 mg/dL (0.7-1.3); GLUCOSE 106 mg/dL (74-106); POTASSIUM 3.8 mmol/L (3.5-5.1); SODIUM SERUM 137 mmol/L (136-145); UREA NITROGEN, BLOOD 32 mg/dL (7-18)
[2018-04-07 20:36] LABS: ALBUMIN 2.9 g/dL (3.4-5.0); ASPARTATE AMINOTRANSFERASE 9 U/L (15-37); LIPASE 228 U/L (73-393); TOTAL BILIRUBIN 0.2 mg/dL (0.0-1.0)
[2018-04-07 20:43] LABS: CREATINE KINASE MB 1.5 ng/mL (0-3.6)
[2018-04-07 21:07] VITALS: BP 122/70
--- NOTE | 2018-04-07 21:07 | NUR ---
Patient discharged with v/s stable. Written and verbal after care instructions given and explained. Patient alert, oriented and verbalized understanding of instructions. Ambulatory with steady gait. All questions addressed prior to discharge. ID band removed. Patient advised to follow up with PMD. Rx of finasteride given. Patient educated on indication of medication including possible reaction and side effects. Opportunity to ask questions provided and answered.
== END 2018-04-07 21:07 | disposition home or self-care (01) ==
LOC: MED 17:24
DX: R42 Dizziness and giddiness (principal); Z76.0 Encounter for issue of repeat prescription
CPT/HCPCS: 36415; 70450; 71045; 80053; 81002; 82550; 82553; 83690; 84484; 85025; 93005; 99284; J7030; Q0092

== ENCOUNTER 2018-04-20 17:39 | Inpatient (IN) | payer OTHER ==
[~2018-04-20] VITALS: Ht 175.3 cm; Wt 72.6 kg
[~2018-04-20 17:39] MED LIST changes: +ASPI-1718 PO; -ASPI81CT89 PO
[2018-04-20 17:40] VITALS: BP 147/74
--- NOTE | 2018-04-20 17:45 | NUR ---
83 YO MALE BIB EMS FROM HOME FOR PROSTATE PAIN AND BLURRY VISION. PT PROSTATE IS RED AND SWOLLEN, AWAKE AND ALERT ON ARRIVAL, VSS AT THIS TIME, BED DOWN, BEDRAIL UP X 1, ER MD AWARE AND NOTIFIED OF PT STATUS. PMH: HTN RX; LISINOPRIL
--- NOTE | 2018-04-20 19:28 | NUR ---
Dr. Velez evaluating patient at bedside.
[2018-04-20 19:50] LABS: APPEARANCE,URINE CLEAR (CLEAR); BILIRUBIN,URINE NEGATIVE (NEGATIVE); BLOOD, URINE NEGATIVE (NEGATIVE); COLOR,URINE YELLOW (YELLOW); LEUKOCYTE ESTERASE ,URINE NEGATIVE (NEGATIVE); NITRITE, URINE NEGATIVE (NEGATIVE); PH,URINE 7.5 (5.0-9.0); UGLUCOSE NEGATIVE (NEGATIVE)
[2018-04-20] MEDS ORDERED: MORPHINE SULFATE 4 MG/ML SYR IM ONE (19:50)
[2018-04-20 20:09] LABS: BASOPHILS # (AUTO) 0.1 K/uL (0.00-0.22); BASOPHILS % (AUTO) 0.6 % (0.0-2.0); EOSINOPHILS # (AUTO) 0.3 K/uL (0-0.4); EOSINOPHILS % (AUTO) 1.8 % (0.0-4.0); LYMPHOCYTES % (AUTO) 13.8 % (20.5-51.1); MEAN CORPUSCULAR HEMOGLOBIN 31 pg (27-31); MEAN CORPUSCULAR HGB CONC 33 g/dL (33-37); MEAN CORPUSCULAR VOLUME 91.9 fL (80-94); MONOCYTES # (AUTO) 1.1 K/uL (0.8-1.0); MONOCYTES % (AUTO) 7.4 % (1.7-9.3); NEUTROPHILS # (AUTO) 11.2 K/uL (1.8-7.7); NEUTROPHILS % (AUTO) 76.4 % (42.2-75.2); PLATELET COUNT (AUTO) 448 K/uL (140-450); RED BLOOD CELL COUNT(AUTO) 4.25 MIL/uL (4.20-6.10); RED CELL DISTRIBUTION WIDTH 12.8 % (11.6-13.7); WHITE BLOOD COUNT (AUTO) 14.6 K/uL (4.8-10.8)
--- NOTE | 2018-04-20 20:10 | NUR ---
PT TAKEN TO CT
[2018-04-20 20:17] LABS: BARBITURATE, URINE NEG. ng/ml (NEG <=200); BENZODIAZEPINE, URINE NEG. ng/mL (NEG <=200); CANNABINOID, URINE NEG. ng/mL (NEG <=50); COCAINE, URINE NEG. ng/mL (NEG <=300); OPIATE, URINE NEG. ng/mL (NEG <=2000); PHENCYCLIDINE SCREEN,URINE NEG. ng/mL (NEG <=25)
--- NOTE | 2018-04-20 20:18 | NUR ---
PT BACK FROM CT AAOX4 AT THIS TIME
[2018-04-20 20:29] LABS: ANION GAP 6.8 (8-16); CARBON DIOXIDE 34.1 mmol/L (21-32); CHLORIDE 104 mmol/L (98-107); CREATININE 1.2 mg/dL (0.7-1.3); GLUCOSE 119 mg/dL (74-106); POTASSIUM 3.9 mmol/L (3.5-5.1); SODIUM SERUM 141 mmol/L (136-145); UREA NITROGEN, BLOOD 29 mg/dL (7-18)
[2018-04-20 20:30] LABS: ASPARTATE AMINOTRANSFERASE 12 U/L (15-37); TOTAL BILIRUBIN 0.3 mg/dL (0.0-1.0)
[2018-04-20] MEDS ORDERED: PIPERACILLIN/TAZOBACTAM 3.375 GM in DEXTROSE 5% 50 ML IV ONE (21:55)
[2018-04-20] MEDS ORDERED: NACL 0.9% 2,500 ML IV ONE (21:55)
[2018-04-20] MEDS: NACL 0.9% 1,000 ML IV SCH (22:09)
[2018-04-20] MEDS ORDERED: DOCUSATE SODIUM 100 MG GELCAP PO PRN (22:10)
[2018-04-20] MEDS ORDERED: MORPHINE SULFATE 2 MG/ML SYR IVP PRN ×2 (22:10→23:45)
[2018-04-20] MEDS ORDERED: ONDANSETRON 4 MG/2 ML VIAL IM/IVP PRN (22:10)
[2018-04-20] MEDS ORDERED: ACETAMINOPHEN 325 MG TAB PO PRN (22:10)
[2018-04-20] MEDS ORDERED: PIPERACILLIN/TAZOBACTAM 3.375 GM VIAL IV ONE (22:19)
[2018-04-20 22:30] VITALS: BP 134/78
--- NOTE | 2018-04-20 22:34 | NUR ---
RECEIVED BEDSIDE REPORT FROM HEAD REFRIGERATION ENGINEER, PATIENT AMBULATORY, STATED HE CANT SEE, PLACED ON FALL RISK PRECAUTIONS, ASSISTED TO BED, IV IN RIGHT FA 22 G INFUSING BOLUS AND ZOSYN. SKIN INTACT, V/S TAKEN ALL WITHIN NORMAL LIMITS, PATIENT IS AOX4. SKIN INTACT. ADMISSION QUESTIONS ANSWERED, PATIENT C/O PAIN IN PROSTATE. MRSA SCREEN COLLECTED AND SENT TO LAB.
--- NOTE | 2018-04-20 22:35 | NUR ---
Patient will be admitted to care of Dr. Musa. Admited to [facility]. Will go to room 107B. Belongings list completed. Report to Cynthia ANAYA.
[2018-04-20 22:36] LABS: PROTHROMBIN TIME 9.7 secs (10.8-13.4)
[2018-04-20 22:44] LABS: MAGNESIUM 2.1 mg/dL (1.8-2.4); PHOSPHORUS 2.9 mg/dL (2.5-4.9); THYROID STIMULATING HORMONE 0.64 uIU/mL (0.34-3.74)
--- NOTE | 2018-04-20 23:19 | NUR ---
MEDICATED WITH MORPHINE FOR PAIN.
[2018-04-20] MEDS ORDERED: LORazepam 2 MG/ML VIAL IM/IVP ONE (23:45)
[2018-04-20] MEDS ORDERED: oxyCODONE 5 MG TAB PO ONE (23:45)
[2018-04-21] MEDS: TAMSULOSIN 0.4 MG CAP PO SCH ×2 (00:29→08:49)
--- NOTE | 2018-04-21 00:29 | NUR ---
DUE MEDICATION GIVEN, PATIENT TOLERATED WELL, EDUCATION PROVIDED. STARTED NS AT 60 ML/HR.
--- NOTE | 2018-04-21 02:00 | NUR ---
DR GONZALES AT BEDSIDE GOING OVER PLAN OF CARE.
--- NOTE | 2018-04-21 02:28 | NUR ---
SPOKE WITH DR DR GONZALES REGARDING PATIENTS REQUEST FOR AMBIEN, DR GONZALES WILL PUT IN LOW DOES ORDER. WILL ADMINISTER.
[2018-04-21] MEDS ORDERED: ZOLPIDEM 5 MG TAB PO SCH (03:00)
[2018-04-21] MEDS: PIPER/TAZO 3.375GM/D5W PREMIX 50 ML IV SCH ×3 (05:05→17:44)
[2018-04-21] MEDS ORDERED: PIPERACILLIN/TAZOBACTAM 3.375 GM VIAL IV ONE (05:07)
--- NOTE | 2018-04-21 06:00 | NUR ---
DUE ZOSYN GIVEN PATIENT TOLERATED WELL.
[2018-04-21 06:10] LABS: BASOPHILS % (AUTO) 0.4 % (0.0-2.0); EOSINOPHILS # (AUTO) 0.4 K/uL (0-0.4); EOSINOPHILS % (AUTO) 4.4 % (0.0-4.0); HEMATOCRIT 30.4 % (36-52); HEMOGLOBIN 10.6 g/dL (12.0-18.0); LYMPHOCYTES % (AUTO) 19.6 % (20.5-51.1); MEAN CORPUSCULAR HEMOGLOBIN 32 pg (27-31); MEAN CORPUSCULAR HGB CONC 35 g/dL (33-37); MEAN CORPUSCULAR VOLUME 91.3 fL (80-94); MONOCYTES # (AUTO) 0.7 K/uL (0.8-1.0); MONOCYTES % (AUTO) 7.3 % (1.7-9.3); NEUTROPHILS % (AUTO) 68.3 % (42.2-75.2); PLATELET COUNT (AUTO) 325 K/uL (140-450); RED BLOOD CELL COUNT(AUTO) 3.33 MIL/uL (4.20-6.10); WHITE BLOOD COUNT (AUTO) 10.2 K/uL (4.8-10.8)
[2018-04-21 06:21] LABS: GLUCOSE 105 mg/dL (74-106); UREA NITROGEN, BLOOD 20 mg/dL (7-18)
[2018-04-21 06:28] LABS: CARBON DIOXIDE 31.6 mmol/L (21-32); SODIUM SERUM 141 mmol/L (136-145)
[2018-04-21 06:30] LABS: CHOL/HDL RATIO 2.6 (1-4.5); MAGNESIUM 1.6 mg/dL (1.8-2.4); PHOSPHORUS 2.6 mg/dL (2.5-4.9)
[2018-04-21 06:40] LABS: ANION GAP 5.1 (8-16); CHLORIDE 107 mmol/L (98-107); POTASSIUM 2.7 mmol/L (3.5-5.1)
--- NOTE | 2018-04-21 06:58 | NUR ---
SPOKE WITH RESIDENTS REGARDING K 2.7 NO ORDERS.
[2018-04-21] MEDS ORDERED: MAG SULF 2000 MG/WATER PREMIX 50 ML IV SCH (07:30)
--- NOTE | 2018-04-21 07:36 | NUR ---
ENDORSED PATIENT TO DAY SHIFTY NURSE PATIENT STABLE
--- NOTE | 2018-04-21 07:37 | NUR ---
Received report from pm nurse Summer. Pt asleep, respirations even & nonlabored, FLACC 0. Call light within reach.
[2018-04-21 08:00] VITALS: BP 130/62
--- NOTE | 2018-04-21 08:06 | NUR ---
PATIENT HAS BEEN SCREENED AND CATEGORIZED MODERATE NUTRITION RISK. PATIENT WILL BE SEEN WITHIN 3-5 DAYS OF ADMISSION. 04/23/18JASSI [address] RD
[2018-04-21] MEDS: LACTOBACILLUS RHAMNOSUS GG 1 EACH CAP PO SCH (08:48)
[2018-04-21] MEDS: HYDROcodone/APAP 5/325 MG 1 TAB TAB PO PRN ×2 (08:49→15:37)
[2018-04-21] MEDS: ASPIRIN 81 MG TAB.CHEW PO SCH (08:49)
[2018-04-21] MEDS: FINASTERIDE 5 MG TAB PO SCH (08:49)
[2018-04-21] MEDS: LISINOPRIL 20 MG TAB PO SCH (08:50)
[2018-04-21] MEDS: NACL 0.9% 1,000 ML IV SCH ×2 (08:52→19:15)
[2018-04-21] MEDS ORDERED: POTASSIUM CHLORIDE 40 MEQ, LIDOCAINE MPF 1% - 5 mL VIAL 25 MG in NACL 0.9% 250 ML IV SCH (09:30)
[2018-04-21] MEDS ORDERED: POTASSIUM CHLORIDE 10 MEQ TABER PO SCH (10:00)
--- NOTE | 2018-04-21 10:05 | NUR ---
DSS administered d/t pt's c/o of occasional constipation. Pt reports last BM on 04/21/18. Encouraged to drink po fluids as eddie & participate in physical activity with PT. Pt verbalized understanding.
--- NOTE | 2018-04-21 12:15 | NUR ---
Pt sitting up on chair at bedside, eating lunch. No c/o discomfort at this time. No signs of distress. Call light within reach.
--- NOTE | 2018-04-21 13:05 | NUR ---
Community Educator Note: Per patient's friend Carmen Carbajal , she has known patient for at least 45 years. She stated they live together. She told me patient is independent with ADLs at home and does not have any difficulty ambulating. 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 She told me patient's mother was also hypochondriac. She informed me patient calls 911 frequently and is brought to either [facility] or [facility]. She said patient prefers our hospital. Patient follows up with pcp [facility] located in [place] and does not have any difficulty filling his prescriptions. Carmen helps patient with transportation but stated it is becoming difficulty for her to drive him due to her age (almost 72 years old). I told her I will provide her with community resources for transportation. Carmen stated patient does not have any family members. Psychiatrist evaluation is pending.
[2018-04-21 16:00] VITALS: BP 100/56
[2018-04-21] MEDS ORDERED: MAGNESIUM HYDROXIDE 2400 MG/30 ML UDC PO SCH (17:00)
[2018-04-21] MEDS ORDERED: KETOROLAC 15 MG/ML VIAL IM SCH (17:05)
[2018-04-21] MEDS ORDERED: traZODone 50 MG TAB PO PRN (18:10)
--- NOTE | 2018-04-21 19:25 | NUR ---
Report given to pm nurse Verena.
--- NOTE | 2018-04-21 19:26 | NUR ---
RECD. AMBULATING IN THE ROOM, GAIT STEADY. A/OX4. RESPIRATION EVEN AN UNLABORED. IV OF NS AT 100 ML/HR INFUSING, RIGHT FOREARM G22. STATED HE DOES NOT HAVE ANYMORE PAIN IN THE SCROTAL AREA. PLAN OF CARE FOR THE SHIFT DISCUSSED. VERBALIZED UNDERSTANDING. DENIES PAIN 0/10.
[2018-04-21 20:00] VITALS: BP 129/66
--- NOTE | 2018-04-21 20:30 | NUR ---
PUT AN GEOVANNY BANDAGE UNDER CHIN AND TIED UP ON TOP OF HIS HEAD, BELIEVED THAT HE NEEDS A BIPAP BUT EXPLAIN HE IS SATURATING 97% ON ROOM AIR. PATIENT PLACED A BANDAGE, BELIEVING WITH THIS HE WILL BE ABLE TO BREATH BETTER IN HIS NOSE.
[2018-04-21] MEDS: PSYLLIUM 12.2 GM/PKT PO SCH (21:00)
[2018-04-21] MEDS ORDERED: ESCITALOPRAM 20 MG TAB PO SCH (21:00)
--- NOTE | 2018-04-21 21:00 | NUR ---
Patient's Plan of Care was discussed and reviewed with GIBSON: TEA
--- NOTE | 2018-04-21 22:00 | NUR ---
IV INFILTRATED. WILL INSERT A NEW ONE.
[2018-04-22] MEDS: HYDROcodone/APAP 5/325 MG 1 TAB TAB PO PRN (00:24)
--- NOTE | 2018-04-22 00:30 | NUR ---
NEW IV LINE INSERTED BY CHARGE NURSE NERI AT THE LEFT FOREARM G22.
[2018-04-22] MEDS: PIPER/TAZO 3.375GM/D5W PREMIX 50 ML IV SCH ×3 (00:43→12:43)
[2018-04-22] MEDS ORDERED: guaiFENesin 600 MG TABER PO PRN (01:20)
[2018-04-22] MEDS ORDERED: traZODone 50 MG TAB PO SCH (01:30)
[2018-04-22] MEDS: NACL 0.9% 1,000 ML IV SCH (05:30)
[2018-04-22 06:14] LABS: T4 (THYROXINE) 6.7 ug/dL (4.5-12.0)
[2018-04-22 06:31] LABS: BASOPHILS % (AUTO) 0.4 % (0.0-2.0); EOSINOPHILS # (AUTO) 0.5 K/uL (0-0.4); EOSINOPHILS % (AUTO) 5.1 % (0.0-4.0); HEMATOCRIT 30.7 % (36-52); HEMOGLOBIN 10.4 g/dL (12.0-18.0); LYMPHOCYTES # (AUTO) 1.4 K/uL (2.0-11.5); LYMPHOCYTES % (AUTO) 13.9 % (20.5-51.1); MEAN CORPUSCULAR HEMOGLOBIN 31 pg (27-31); MEAN CORPUSCULAR HGB CONC 34 g/dL (33-37); MEAN CORPUSCULAR VOLUME 91.8 fL (80-94); MONOCYTES # (AUTO) 0.8 K/uL (0.8-1.0); MONOCYTES % (AUTO) 8.3 % (1.7-9.3); NEUTROPHILS # (AUTO) 7.2 K/uL (1.8-7.7); NEUTROPHILS % (AUTO) 72.3 % (42.2-75.2); PLATELET COUNT (AUTO) 304 K/uL (140-450); RED BLOOD CELL COUNT(AUTO) 3.35 MIL/uL (4.20-6.10); RED CELL DISTRIBUTION WIDTH 13.2 % (11.6-13.7); WHITE BLOOD COUNT (AUTO) 9.9 K/uL (4.8-10.8)
--- NOTE | 2018-04-22 07:10 | NUR ---
ABLE TO SLEEP WELL. CONDITION REMAIN STABLE. ENDORSED TO AM SHIFT NURSE FOR CONTINUITY OF CARE.
--- NOTE | 2018-04-22 07:11 | NUR ---
RECEIVED REPORT FROM COOLER OPERATOR NURSE FOR CONTINUITY OF CARE. PT IN STABLE CONDITION. IV INTACT AND PATENT. RESPIRATIONS EVEN AND UNLABORED. SAFETY MEASURES IN PLACE. CALL LIGHT AT BEDSIDE. BED IN LOW POSITION. WILL CONTINUE TO MONITOR.
[2018-04-22 07:25] LABS: ANION GAP 4.7 (8-16); CHLORIDE 109 mmol/L (98-107); GLUCOSE 96 mg/dL (74-106); POTASSIUM 3.7 mmol/L (3.5-5.1); SODIUM SERUM 139 mmol/L (136-145); UREA NITROGEN, BLOOD 19 mg/dL (7-18)
[2018-04-22 07:35] LABS: PHOSPHORUS 2.8 mg/dL (2.5-4.9)
[2018-04-22 08:00] VITALS: BP 94/49
[2018-04-22] MEDS: LISINOPRIL 20 MG TAB PO SCH (09:00)
[2018-04-22] MEDS: ASPIRIN 81 MG TAB.CHEW PO SCH (09:12)
[2018-04-22] MEDS: FINASTERIDE 5 MG TAB PO SCH (09:12)
[2018-04-22] MEDS: LACTOBACILLUS RHAMNOSUS GG 1 EACH CAP PO SCH (09:13)
[2018-04-22] MEDS: PSYLLIUM 12.2 GM/PKT PO SCH (09:13)
[2018-04-22] MEDS: TAMSULOSIN 0.4 MG CAP PO SCH (09:13)
[2018-04-22] MEDS ORDERED: ACET-9525 PO (10:16)
[2018-04-22] MEDS ORDERED: TAMS0.4C96 PO (10:16)
[2018-04-22] MEDS ORDERED: LACT10CA PO (10:16)
[2018-04-22] MEDS ORDERED: DOCU-299 PO (10:16)
[2018-04-22] MEDS ORDERED: ESCI20TA47 PO (10:16)
[2018-04-22] MEDS ORDERED: METPCK PO (10:16)
[2018-04-22] MEDS ORDERED: FINA5TAB5 PO (10:16)
[2018-04-22] MEDS ORDERED: TRAZ-466 PO (10:16)
--- NOTE | 2018-04-22 10:45 | NUR ---
CASA CALLED TO EXPRESS HER FEELINGS ON HER HUSBANDS POSSIBLE DISCHARGE WITH [facility]. CASA STATED THEY DON'T GET PAID TILL THURSDAY AND WILL NOT BE ABLE TO GET MEDICATION UNTIL THEN. PT WOULD LIKE TO SPEAK WITH CASE MANAGEMENT OR DOCTOR ABOUT THIS ISSUE.
--- NOTE | 2018-04-22 11:00 | NUR ---
CALLED CASE MANAGEMENT AND LEFT MESSAGE. WILL TRY AGAIN.
--- NOTE | 2018-04-22 11:12 | NUR ---
SPOKE WITH FAVIOLA FROM CASE MANAGEMENT ON MEDICATION ISSUE.
[2018-04-22] MEDS ORDERED: SULF-59 PO (11:32)
--- NOTE | 2018-04-22 12:00 | NUR ---
HEALTH RECORDS FAXED TO [facility] ORDERED (FAX#[phone]), CONFIRMATION ATTACHED TO CHART.
--- NOTE | 2018-04-22 13:30 | NUR ---
GAVE REPORT TO DAY SHIFT NURSE FOR CONTINUITY OF CARE. PT IN STABLE CONDITION.
--- NOTE | 2018-04-22 13:31 | NUR ---
RECEIVED BEDSIDE REPORT FROM JACLYN DE LEON.PT STABLE, AWAKE, AND ALERT. NO REDNESS, SWELLING, OR INFLAMMATION NOTED ON IV SITE. NO SIGNS OF DISTRESS NOTED. SAFETY MEASURES IN PLACE. CALL ROBERTO WITHIN REACH. PLAN OF CARE REVIEWED.
--- NOTE | 2018-04-22 15:20 | NUR ---
D/C INSTRUCTIONS AND PAPERWORK GIVEN. PT VERBALIZED UNDERSTANDING. DISCONTINUED IV, CATHETER TIP INTACT. PT ESCORTED TO THE ENTRANCE TO GET PICKED UP BY FAMILY. PT STABLE AND ALERT.
== END 2018-04-22 15:20 | disposition home or self-care (01) | DRG 872 ==
LOC: MED 17:39 → MTU 22:12
PROVIDERS: ADMIT General Practice; ATTEND General Practice
DX: A41.9 Sepsis, unspecified organism (principal); G90.8 Other disorders of autonomic nervous system; N41.9 Inflammatory disease of prostate, unspecified; M54.5 Low back pain; N40.0 Benign prostatic hyperplasia without lower urinary tract symptoms; H35.3190 Nonexudative age-related macular degeneration, unspecified eye, stage unspecified; I10 Essential (primary) hypertension; Z90.49 Acquired absence of other specified parts of digestive tract; G89.29 Other chronic pain; Z91.19 Patient's noncompliance with other medical treatment and regimen; F41.9 Anxiety disorder, unspecified; F19.90 Other psychoactive substance use, unspecified, uncomplicated; F10.20 Alcohol dependence, uncomplicated; Y90.9 Presence of alcohol in blood, level not specified; E87.6 Hypokalemia
CPT/HCPCS: 36415; 70450; 71045; 76870; 80048; 80053; 80305; 81003; 82140; 82150; 83036; 83605; 83690; 83735; 83880; 84100; 84436; 84443; 84484; 85025; 85610; 85730; 87040; 87081; 93880; 96361; 96374; 99285; J1885; J2001; J2060; J2270; J2543; J3475; J3480; J7030; J7060; Q0092

== ENCOUNTER 2018-04-24 01:38 | Emergency (ER) | payer OTHER ==
[~2018-04-24] VITALS: Ht 167.6 cm; Wt 82.1 kg
[~2018-04-24 01:38] MED LIST changes: +ACET-9525 PO; +DOCU-299 PO; +ESCI20TA47 PO; +FINA5TAB5 PO; +LACT10CA PO; +METPCK PO; +SULF-59 PO; +TAMS0.4C96 PO; +TRAZ-466 PO
[2018-04-24 01:45] VITALS: BP 109/78
--- NOTE | 2018-04-24 01:46 | NUR ---
TO BED # 9 AMBUALTORY, REPORT GIVEN TO HARLEEN ANAYA
--- NOTE | 2018-04-24 02:10 | NUR ---
83/M PRESENTS TO ED, C/O 12/23 SHARP CONSTANT PERINEAL PAIN, X2 DAYS. PT DENIES FEVER, N/V/D. DENIES ANY TRAUMA/INJURY OR ANY USE OF VIAGRA. PT REPORTS DECREASED AND CLOUDY VISION THAT PT CLAIMS TO "RELATED TO THE PROSTATITIS." PT STATED THAT HE KNOWS THAT IT IS "ACUTE PROSTATITIS," ALTHOUGH ADMITS THAT IT IS UNDIAGNOSED. PT STATED HE WAS DISCHARGED TONIGHT FROM [facility] FOR SIMILAR ISSUE. PT AOX4, GCS 15, RR EVEN AND UNLABORED. HX HTN, BPH
[2018-04-24] MEDS ORDERED: MORPHINE SULFATE 4 MG/ML SYR IM ONE ×2 (03:20→03:50)
[2018-04-24 04:18] VITALS: BP 148/78
== END 2018-04-24 04:18 | disposition home or self-care (01) ==
LOC: MED 01:38
DX: N42.9 Disorder of prostate, unspecified (principal); I10 Essential (primary) hypertension; Z90.49 Acquired absence of other specified parts of digestive tract; Z79.82 Long term (current) use of aspirin; Z79.899 Other long term (current) drug therapy
CPT/HCPCS: 81002; 82948; 96372; 99283; J2270

== ENCOUNTER 2018-04-26 14:57 | Emergency (ER) | payer OTHER ==
[~2018-04-26] VITALS: Ht 167.6 cm; Wt 65.5 kg
--- NOTE | 2018-04-26 15:33 | NUR ---
PT AMBULATES TO BED 4
[2018-04-26 15:35] VITALS: BP 107/58
--- NOTE | 2018-04-26 15:44 | NUR ---
BIB SELF WITH C/O CHRONIC LT LOWER BACK PAIN 10/10 THAT HAS GOTTEN WORSE OVER THE LAST FEW HOURS. PER PT IT IS "D/T PROSTATITIS", PT ALSO STATES, "I'M GOING BLIND". WAS SEEN ON 04/24/18 FOR PROSTATIS. PT DENIES N/V/D; AAOX4, PERRL, WITH EVEN AND STEADY GAIT; PT DENIES ANY FEVER, CP, SOB, OR COUGH AT THIS TIME; PT STATES 10/10 PAIN AT THIS TIME; VSS; PATIENT POSITIONED FOR COMFORT; HOB ELEVATED; BEDRAILS UP X2; BED DOWN. HX; BPH, HTN RX; FLOMAX, LISINOPRIL
[2018-04-26] MEDS ORDERED: KETOROLAC 30 MG/ML VIAL IM ONE (16:00)
[2018-04-26 16:42] VITALS: BP 107/58
== END 2018-04-26 16:40 | disposition home or self-care (01) ==
LOC: MED 14:57
DX: G89.29 Other chronic pain (principal); M25.552 Pain in left hip; R06.02 Shortness of breath; H54.7 Unspecified visual loss; I10 Essential (primary) hypertension; Z90.49 Acquired absence of other specified parts of digestive tract; Z79.82 Long term (current) use of aspirin; Z79.899 Other long term (current) drug therapy
CPT/HCPCS: 96372; 99283; J1885

== ENCOUNTER 2018-05-16 06:20 | Emergency (ER) | payer OTHER ==
[~2018-05-16] VITALS: Ht 167.6 cm; Wt 81.6 kg
[2018-05-16 06:20] VITALS: BP 136/66
--- NOTE | 2018-05-16 06:20 | NUR ---
PT BIBA TO BED 8, REPORT TO BRICE ANAYA
--- NOTE | 2018-05-16 06:24 | NUR ---
PT BIBA FOR LUQ ABD PAIN X2 HOURS. PT REPORTS NON-RADIATING SHARP/ACHY PAIN IN LUQ WITH GRADUAL ONSET 1 HOUR AGO. ABD IS SOFT, FLAT, NON-TENDER, AND BOWEL SOUNDS ACTIVE X4 QUADRANTS. PT REPORTS SOLID BM THIS MOORNING. PT DENIES CP, SOB, N/V/D, OR FEVER. ER MD TO SEE PT. WILL CONTINUE TO MONITOR. MEDHX: HTN RX: LOSINOPRIL
[2018-05-16] MEDS ORDERED: NACL 0.9% 500 ML IV SCH (06:28)
[2018-05-16] MEDS ORDERED: KETOROLAC 30 MG/ML VIAL IVP ONE (06:30)
--- NOTE | 2018-05-16 06:53 | NUR ---
PT AT RADIOLOGY AT THIS TIME
--- NOTE | 2018-05-16 06:59 | NUR ---
PT RETURNED FROM RADIOLOGY AT THIS TIME.
[2018-05-16 07:05] LABS: BASOPHILS % (AUTO) 0.7 % (0.0-2.0); EOSINOPHILS # (AUTO) 0.3 K/uL (0-0.4); EOSINOPHILS % (AUTO) 5.2 % (0.0-4.0); HEMATOCRIT 35.4 % (36-52); HEMOGLOBIN 11.9 g/dL (12.0-18.0); LYMPHOCYTES # (AUTO) 1.3 K/uL (2.0-11.5); MEAN CORPUSCULAR HEMOGLOBIN 31 pg (27-31); MEAN CORPUSCULAR HGB CONC 34 g/dL (33-37); MEAN CORPUSCULAR VOLUME 92.5 fL (80-94); MONOCYTES # (AUTO) 0.6 K/uL (0.8-1.0); MONOCYTES % (AUTO) 9.3 % (1.7-9.3); NEUTROPHILS # (AUTO) 4.1 K/uL (1.8-7.7); NEUTROPHILS % (AUTO) 63.8 % (42.2-75.2); PLATELET COUNT (AUTO) 337 K/uL (140-450); RED BLOOD CELL COUNT(AUTO) 3.83 MIL/uL (4.20-6.10); RED CELL DISTRIBUTION WIDTH 14.5 % (11.6-13.7); WHITE BLOOD COUNT (AUTO) 6.4 K/uL (4.8-10.8)
[2018-05-16 07:17] LABS: APPEARANCE,URINE CLEAR (CLEAR); BILIRUBIN,URINE NEGATIVE (NEGATIVE); BLOOD, URINE NEGATIVE (NEGATIVE); COLOR,URINE YELLOW (YELLOW); LEUKOCYTE ESTERASE ,URINE NEGATIVE (NEGATIVE); NITRITE, URINE NEGATIVE (NEGATIVE); UGLUCOSE NEGATIVE (NEGATIVE)
[2018-05-16 07:18] LABS: ANION GAP 12.6 (8-16); CARBON DIOXIDE 27.1 mmol/L (21-32); CHLORIDE 105 mmol/L (98-107); CREATININE 1.1 mg/dL (0.7-1.3); GLUCOSE 87 mg/dL (74-106); POTASSIUM 3.7 mmol/L (3.5-5.1); SODIUM SERUM 141 mmol/L (136-145); UREA NITROGEN, BLOOD 20 mg/dL (7-18)
[2018-05-16 07:24] LABS: ASPARTATE AMINOTRANSFERASE 14 U/L (15-37); TOTAL BILIRUBIN 0.4 mg/dL (0.0-1.0)
--- NOTE | 2018-05-16 07:58 | NUR ---
Patient being evaluated by physician at bedside.
[2018-05-16] MEDS ORDERED: LORazepam 2 MG/ML VIAL IM ONE (08:05)
[2018-05-16] MEDS ORDERED: LACTULOSE 20 GM/30 ML UDC PO ONE (08:10)
[2018-05-16] MEDS ORDERED: DICYCLOMINE HCL LIQUID 10 MG/5 ML UDC PO ONE (08:10)
[2018-05-16 09:32] VITALS: BP 129/72
== END 2018-05-16 09:33 | disposition home or self-care (01) ==
LOC: MED 06:20
DX: G89.29 Other chronic pain (principal); R10.30 Lower abdominal pain, unspecified; F48.9 Nonpsychotic mental disorder, unspecified; R45.1 Restlessness and agitation; R35.0 Frequency of micturition; R35.1 Nocturia; I10 Essential (primary) hypertension; N40.1 Benign prostatic hyperplasia with lower urinary tract symptoms; Z79.82 Long term (current) use of aspirin; Z79.2 Long term (current) use of antibiotics; Z79.891 Long term (current) use of opiate analgesic; Z79.899 Other long term (current) drug therapy
CPT/HCPCS: 36415; 71045; 74176; 80053; 81003; 83605; 83880; 84484; 85025; 85610; 85730; 87040; 87086; 93005; 96372; 96374; 99284; J1885; J2060; J7030; Q0092

== ENCOUNTER 2018-05-19 09:02 | Emergency (ER) | payer OTHER ==
[~2018-05-19] VITALS: Ht 172.7 cm; Wt 72.6 kg
[2018-05-19 09:04] VITALS: BP 151/86
--- NOTE | 2018-05-19 09:10 | NUR ---
83Y/ M BROUGHT IN BY EMS FROM HOME WITH C/O ANXIETY, SOB X EARLIER TODAY, PT SAT AT 98%, FULL CLEAR SPEECH, NO ACCESSORY MUSCLE USE NOTED. PT IS AAOX4, VSS AT THIS TIME, BED DOWN, BED RAIL UP X 1, ER MD AWARE AND NOTIFIED OF PT STATUS. HX--HTN, ANXIETY RX--LISINOPRIL
--- NOTE | 2018-05-19 09:41 | NUR ---
Patient being evaluated by physician at bedside.
[2018-05-19] MEDS ORDERED: LORazepam 1 MG TAB PO ONE (09:45)
[2018-05-19] MEDS ORDERED: HALOPERIDOL 1 MG TAB PO ONE (09:45)
[2018-05-19] MEDS ORDERED: LORazepam 1 MG TAB ONE (10:02)
--- NOTE | 2018-05-19 10:17 | NUR ---
RX CALLED FOR PT MEDS
--- NOTE | 2018-05-19 10:40 | NUR ---
PT UP IN BED EATING AT THIS TIME
--- NOTE | 2018-05-19 11:00 | NUR ---
PT IS RESTING IN BED AT THIS TIME
--- NOTE | 2018-05-19 12:13 | NUR ---
PATIENT UP IN BED EATING
[2018-05-19 12:41] VITALS: BP 148/82
--- NOTE | 2018-05-19 12:50 | NUR ---
Patient discharged with v/s stable. Written and verbal after care instructions given and explained. Patient alert, oriented and verbalized understanding of instructions. Ambulatory with steady gait. All questions addressed prior to discharge. ID band removed. Patient advised to follow up with PMD. Rx of HALOPERIDOL, BENADRYL given. Patient educated on indication of medication including possible reaction and side effects. Opportunity to ask questions provided and answered.
--- NOTE | 2018-05-19 13:18 | NUR ---
1210 MET WITH PATIENT AT BEDSIDE. PATIENT IS KNOW TO THE FACILITY. PATIENT LIVES WITH HIS FRIEND CASA AND HE PLANS TO RETURN THERE ON DISCHARGE. STATES THAT HE DOES FOLLOW UP AT THE RI AND WILL BE GOING TO THE ONE IN [place]. INQUIRED ABOUT TRANSPORTATION AND HE SAID HIS FRIEND IS USUALLY ABLE TO ASSIST BUT NOT ALWAYS. ADVISED HIM TO CALL [facility] [place] AND INQUIRE REGARDING TRANSPORTATION EACH [facility] HAS DIFFERENT SERVICES. HE DID SAY THAT [facility] [place] BUT THEY DID NOT HAVE A SHUTTLE BUT HE WILL INQUIRE AT THE [facility]. PATIENT DID REQUEST A TAXI VOUCHER TO GET HOME ONCE HE IS DISCHARGED.
== END 2018-05-19 12:50 | disposition home or self-care (01) ==
LOC: MED 09:02
DX: F29 Unspecified psychosis not due to a substance or known physiological condition (principal); F41.9 Anxiety disorder, unspecified; I10 Essential (primary) hypertension; Z79.2 Long term (current) use of antibiotics; Z79.1 Long term (current) use of non-steroidal anti-inflammatories (NSAID); Z79.899 Other long term (current) drug therapy
CPT/HCPCS: 99284

== ENCOUNTER 2018-05-21 20:37 | Emergency (ER) | payer OTHER ==
[~2018-05-21] VITALS: Ht 167.6 cm; Wt 81.6 kg
[2018-05-21 20:37] VITALS: BP 140/83
--- NOTE | 2018-05-21 20:38 | NUR ---
PT TO BED #10 BY MARYANN
--- NOTE | 2018-05-21 20:50 | NUR ---
PT BIBA FOR SELF DIAGNOSED PROSTATE PAIN. PT REPORTS SHARP/ACHY NON RADIATING PAIN BEHIND/UNDERNEATH L TESTICLE, TREATED WTIH TYLENOL WITH NO RELIEF. NO EDEMA OR EYTHEMA VISIBLE. PT REPORTS "RAPIDLY DETERIORATING VISION" AND STATES VISION IS "CLOUDY". PT ABLE TO COMMUNICATE HOW MANY FINGERS I HOLD UP, FACIAL SYMMETRY INTACT, BUE AND BLE EQUAL AND STRONG, PERRLA, AAOX4, AND COOPERATIVE. VSS. ER TO SEE PT.
--- NOTE | 2018-05-21 21:46 | NUR ---
US tech at bedside for exam.
--- NOTE | 2018-05-21 22:05 | NUR ---
Dr. Manley evaluating patient at bedside.
[2018-05-21] MEDS ORDERED: KETOROLAC 60 MG/2 ML VIAL IM ONE (22:25)
[2018-05-21 22:48] VITALS: BP 133/79
== END 2018-05-21 22:45 | disposition home or self-care (01) ==
LOC: MED 20:37
DX: N40.0 Benign prostatic hyperplasia without lower urinary tract symptoms (principal); N43.3 Hydrocele, unspecified; I10 Essential (primary) hypertension; F41.9 Anxiety disorder, unspecified; Z79.82 Long term (current) use of aspirin; Z79.899 Other long term (current) drug therapy
CPT/HCPCS: 76870; 96372; 99284; J1885; Q0092

== ENCOUNTER 2018-06-05 04:32 | Inpatient (IN) | payer OTHER ==
[~2018-06-05] VITALS: Ht 167.6 cm; Wt 83.9 kg
[2018-06-05 04:37] VITALS: BP 165/77
--- NOTE | 2018-06-05 04:37 | NUR ---
83 y/o m biba with c/o LUQ pain that radiates to back. aaox4. 12/23 sharp and continous. tenderness to touch. Per pt has had this pain in the past. bedrail x1 up. notified. Will continue to monitor. PMH: HTN NKA
[2018-06-05] MEDS: DEXT 5% /NACL 0.9% 1,000 ML IV SCH ×2 (04:59→13:10)
[2018-06-05] MEDS ORDERED: MORPHINE SULFATE 4 MG/ML SYR IVP ONE (05:05)
[2018-06-05] MEDS ORDERED: MORPHINE SULFATE 2 MG/ML SYR ONE (05:17)
--- NOTE | 2018-06-05 05:33 | NUR ---
attempted to obtain IV access x2 without success. Charge nurse Usha made aware.
--- NOTE | 2018-06-05 05:50 | NUR ---
PT taken to radiology.
--- NOTE | 2018-06-05 06:19 | NUR ---
Pt awake in bed. VSS.
[2018-06-05 06:41] LABS: APPEARANCE,URINE CLEAR (CLEAR); BILIRUBIN,URINE NEGATIVE (NEGATIVE); BLOOD, URINE NEGATIVE (NEGATIVE); COLOR,URINE YELLOW (YELLOW); LEUKOCYTE ESTERASE ,URINE NEGATIVE (NEGATIVE); NITRITE, URINE NEGATIVE (NEGATIVE); UGLUCOSE NEGATIVE (NEGATIVE)
[2018-06-05 06:43] LABS: ANION GAP 13.4 (8-16); CARBON DIOXIDE 28.3 mmol/L (21-32); CHLORIDE 106 mmol/L (98-107); GLUCOSE 91 mg/dL (74-106); POTASSIUM 3.7 mmol/L (3.5-5.1); SODIUM SERUM 144 mmol/L (136-145); UREA NITROGEN, BLOOD 21 mg/dL (7-18)
[2018-06-05 06:49] LABS: ALBUMIN 2.9 g/dL (3.4-5.0); ASPARTATE AMINOTRANSFERASE 17 U/L (15-37); LIPASE 1150 U/L (73-393); TOTAL BILIRUBIN 0.5 mg/dL (0.0-1.0)
[2018-06-05 06:50] LABS: BASOPHILS # (AUTO) 0.1 K/uL (0.00-0.22); EOSINOPHILS # (AUTO) 0.4 K/uL (0-0.4); EOSINOPHILS % (AUTO) 6.5 % (0.0-4.0); HEMATOCRIT 36.6 % (36-52); HEMOGLOBIN 12.1 g/dL (12.0-18.0); LYMPHOCYTES # (AUTO) 1.9 K/uL (2.0-11.5); LYMPHOCYTES % (AUTO) 29.3 % (20.5-51.1); MEAN CORPUSCULAR HEMOGLOBIN 31 pg (27-31); MEAN CORPUSCULAR HGB CONC 33 g/dL (33-37); MEAN CORPUSCULAR VOLUME 93.6 fL (80-94); MONOCYTES # (AUTO) 0.5 K/uL (0.8-1.0); MONOCYTES % (AUTO) 8.7 % (1.7-9.3); NEUTROPHILS # (AUTO) 3.5 K/uL (1.8-7.7); NEUTROPHILS % (AUTO) 54.5 % (42.2-75.2); PLATELET COUNT (AUTO) 280 K/uL (140-450); RED BLOOD CELL COUNT(AUTO) 3.91 MIL/uL (4.20-6.10); RED CELL DISTRIBUTION WIDTH 14.9 % (11.6-13.7); WHITE BLOOD COUNT (AUTO) 6.3 K/uL (4.8-10.8)
[2018-06-05] MEDS ORDERED: NACL 0.9% 1,000 ML IV ONE (06:55)
[2018-06-05] MEDS ORDERED: HYDROcodone/APAP 5/325 MG 1 TAB TAB PO PRN (07:05)
[2018-06-05] MEDS ORDERED: NACL 0.9% 1,000 ML IV SCH (07:05)
[2018-06-05] MEDS ORDERED: ACETAMINOPHEN 325 MG TAB PO PRN (07:05)
[2018-06-05] MEDS ORDERED: ONDANSETRON 4 MG/2 ML VIAL IM/IVP PRN (07:05)
[2018-06-05] MEDS ORDERED: DOCUSATE SODIUM 100 MG GELCAP PO PRN (07:05)
[2018-06-05] MEDS ORDERED: MORPHINE SULFATE 2 MG/ML SYR IVP PRN (07:05)
--- NOTE | 2018-06-05 07:08 | NUR ---
bedside report given to JACLYN Howell. transfer of care at this time
--- NOTE | 2018-06-05 07:08 | NUR ---
Assume care of patient from Jeaneth ANAYA
[2018-06-05 07:56] LABS: BARBITURATE, URINE NEG. ng/ml (NEG <=200); BENZODIAZEPINE, URINE NEG. ng/mL (NEG <=200); CANNABINOID, URINE NEG. ng/mL (NEG <=50); COCAINE, URINE NEG. ng/mL (NEG <=300); OPIATE, URINE NEG. ng/mL (NEG <=2000); PHENCYCLIDINE SCREEN,URINE NEG. ng/mL (NEG <=25)
[2018-06-05 08:10] VITALS: BP 155/60
--- NOTE | 2018-06-05 08:10 | NUR ---
Patient will be admitted to care of Dr. Garcia. Admited to telemetry. Will go to room 111 B. Belongings list completed. Report to JACLYN Donaldson.
--- NOTE | 2018-06-05 08:10 | NUR ---
RECEIVED REPORT FROM EMERGENCY ROOM NURSE FOR CONTINUITY OF CARE. PT IN STABLE CONDITION. RESPIRATIONS EVEN AND UNLABORED. IV INTACT AND PATENT. BED IN LOW POSITION. CALL LIGHT AT BEDSIDE. SAFETY MEASURES IN PLACE. WILL CONTINUE TO MONITOR.
[2018-06-05 08:43] LABS: PROTHROMBIN TIME 10.1 secs (10.8-13.4)
[2018-06-05 09:02] LABS: FREE T4 (FREE THYROXINE) 1.29 ng/dL (0.76-1.46); MAGNESIUM 1.8 mg/dL (1.8-2.4); PHOSPHORUS 3.7 mg/dL (2.5-4.9)
[2018-06-05 09:24] LABS: THYROID STIMULATING HORMONE 1.69 uIU/mL (0.34-3.74)
--- NOTE | 2018-06-05 09:40 | NUR ---
GAVE MORPHINE FOR PAIN MEDICATIONS PER PT REQUEST 11/23 AT THIS TIME. PT TOLERATED WELL.
[2018-06-05] MEDS ORDERED: LISINOPRIL 10 MG PO SCH (09:55)
[2018-06-05] MEDS ORDERED: LIDOCAINE VISCOUS 2% 20 ML UDC PO SCH (10:30)
[2018-06-05] MEDS ORDERED: TAMSULOSIN 0.4 MG CAP PO SCH (10:30)
[2018-06-05] MEDS ORDERED: LISINOPRIL 10 MG TAB PO SCH (10:30)
[2018-06-05] MEDS ORDERED: ALUMINUM HYD/MAG/SIMETHICONE 30 ML UDC PO SCH (10:30)
[2018-06-05] MEDS ORDERED: DICYCLOMINE HCL LIQUID 10 MG/5 ML UDC PO SCH (10:30)
[2018-06-05] MEDS: PANTOPRAZOLE 40 MG INJ VIAL IVP SCH (11:12)
--- NOTE | 2018-06-05 11:25 | NUR ---
PT LYING IN BED IN STABLE CONDITION. RESPIRATIONS EVEN AND UNLABORED. WILL CONTINUE TO MONITOR. BED IN LOW POSITION. CALL LIGHT AT BEDSIDE.
[2018-06-05 12:03] VITALS: BP 155/63
[2018-06-05 13:15] LABS: BASOPHILS # (AUTO) 0.1 K/uL (0.00-0.22); BASOPHILS % (AUTO) 0.8 % (0.0-2.0); EOSINOPHILS # (AUTO) 0.3 K/uL (0-0.4); EOSINOPHILS % (AUTO) 4.2 % (0.0-4.0); HEMATOCRIT 34.3 % (36-52); HEMOGLOBIN 11.3 g/dL (12.0-18.0); LYMPHOCYTES # (AUTO) 1.7 K/uL (2.0-11.5); LYMPHOCYTES % (AUTO) 26.5 % (20.5-51.1); MEAN CORPUSCULAR HEMOGLOBIN 31 pg (27-31); MEAN CORPUSCULAR HGB CONC 33 g/dL (33-37); MEAN CORPUSCULAR VOLUME 93.4 fL (80-94); MONOCYTES # (AUTO) 0.5 K/uL (0.8-1.0); MONOCYTES % (AUTO) 8.3 % (1.7-9.3); NEUTROPHILS # (AUTO) 3.9 K/uL (1.8-7.7); NEUTROPHILS % (AUTO) 60.2 % (42.2-75.2); PLATELET COUNT (AUTO) 270 K/uL (140-450); RED BLOOD CELL COUNT(AUTO) 3.67 MIL/uL (4.20-6.10); RED CELL DISTRIBUTION WIDTH 14.7 % (11.6-13.7); WHITE BLOOD COUNT (AUTO) 6.5 K/uL (4.8-10.8)
[2018-06-05] MEDS ORDERED: ATORVASTATIN 20 MG TAB PO SCH (13:30)
--- NOTE | 2018-06-05 13:43 | NUR ---
PT STATES THAT HE IS LOOSING VISION IN BOTH EYES BECAUSE THERE IS SOMETHING IN THE AIR CONDITION. PT STATES THAT EVERY TIME THAT HE COMES TO THIS HOSPITAL HE LOOSES VISION. PT STATES THAT THE AIR CONDITION UNIT GETS TREATED WITH CHEMICALS THAT MAKES HIM BLIND. PT IS ABLE TO SEE HIS URINAL AND WHEN ASKED TO LOOK AT ITEMS ABLE TO READ OFF WHAT THEY ARE. PT ABLE TO SEE NURSES FACE AND COLOR OF UNIFORM. WILL CONTINUE TO MONITOR.
[2018-06-05] MEDS ORDERED: LORazepam 0.5 MG TAB PO SCH (15:00)
--- NOTE | 2018-06-05 15:25 | NUR ---
WALKED WITH PT AROUND MST. PT TOLERATED WELL. WILL CONTINUE TO MONITOR.
[2018-06-05 16:00] VITALS: BP 126/58
--- NOTE | 2018-06-05 16:01 | NUR ---
ASSISTED PT WITH PHONE TO CALL HIS FRIEND AND EMERGENCY CONTACT CASA. PT WAS ABLE TO SPEAK TO HIS FRIEND CASA.
--- NOTE | 2018-06-05 17:45 | NUR ---
PT LYING IN BED WATCHING TV IN STABLE CONDITION. BED IN LOW POSITION. CALL LIGHT AT BEDSIDE
--- NOTE | 2018-06-05 19:44 | NUR ---
GAVE REPORT TO SENIOR JAVA DEVELOPER NURSE FOR CONTINUITY OF CARE. PT IN STABLE CONDITION.
--- NOTE | 2018-06-05 19:45 | NUR ---
PATIENT REFUSED EGD AND COLONOSCOPY PER DR. DURAN AND HENRIQUE RN. CHARGE NURSE AWARE.
--- NOTE | 2018-06-05 19:45 | NUR ---
RECEIVED PATIENT AWAKE RESTING COMFORTABLY IN BED. RESPIRATION EVEN AND UNLABORED. BED IN LOW LOCKED POSITION. CALL LIGHT WITHIN REACH. DISCUSSED PLAN OF CARE. ALL NEEDS ATTENDED.
[2018-06-05 20:00] VITALS: BP 129/60
[2018-06-05] MEDS ORDERED: traZODone 50 MG TAB PO SCH (21:00)
--- NOTE | 2018-06-05 21:00 | NUR ---
V/S TAKEN AND RECORDED. SCHEDULE MEDICATION. PATIENT ASKING FOR EYEDROP AND CPAP NOTIFIED DR. LUIS NO ORDER MADE. WILL CONTINUE TO MONITOR.
--- NOTE | 2018-06-05 22:00 | NUR ---
PATIENT IN CLEAR LIQUID DIET INFORMED DR. LUIS AND CN AWARE.
[2018-06-06] VITALS: BP 121/64
--- NOTE | 2018-06-06 | NUR ---
V/ S TAKEN AND RECORDED. AWARE ABOUT LOW OR, SINUS JUAN. NO ORDER MADE.
--- NOTE | 2018-06-06 02:00 | NUR ---
SEEN PATIENT RESTING COMFORTABLY IN BED. BED IN LOW LOCKED POSITION. CALL LIGHT WITHIN REACH.
[2018-06-06 04:00] VITALS: BP 123/71
--- NOTE | 2018-06-06 04:00 | NUR ---
SEEN PATIENT ASLEEP.DENIES PAIN. ALL NEEDS ATTENDED. CALL LIGHT WITHIN REACH.
[2018-06-06] MEDS: DEXT 5% /NACL 0.9% 1,000 ML IV SCH (06:39)
--- NOTE | 2018-06-06 07:10 | NUR ---
REPORT GIVEN TO AM SHIFT RN AT BEDSIDE. CALL LIGHT WITHIN REACH. PATIENT IN STABLE CONDITION.
--- NOTE | 2018-06-06 07:12 | NUR ---
RECEIVED REPORT FROM [facility] HAND NURSE WILFRID FOR CONTINUITY OF CARE. PT IN STABLE CONDITION. IV INTACT AND PATENT. BED IN LOW POSITION. CALL LIGHT AT BEDSIDE. WILL CONTINUE TO MONITOR.
[2018-06-06 08:00] VITALS: BP 145/64
[2018-06-06] MEDS ORDERED: TAMSULOSIN 0.4 MG CAP PO SCH (08:30)
[2018-06-06] MEDS: PANTOPRAZOLE 40 MG INJ VIAL IVP SCH (08:54)
[2018-06-06] MEDS ORDERED: ATORVASTATIN 20 MG TAB PO SCH (09:00)
[2018-06-06] MEDS ORDERED: LISINOPRIL 10 MG TAB PO SCH (09:00)
--- NOTE | 2018-06-06 09:10 | NUR ---
GAVE DUE ORDERED MEDICATIONS PT TOLERATED WELL. BED IN LOW POSITION. CALL LIGHT AT BEDSIDE. WILL CONTINUE TO MONITOR.
[2018-06-06] MEDS ORDERED: DICYCLOMINE HCL LIQUID 10 MG/5 ML UDC PO SCH (09:30)
[2018-06-06] MEDS ORDERED: BEN10 PO (10:12)
[2018-06-06] MEDS ORDERED: ATOR20TA40 PO (10:16)
--- NOTE | 2018-06-06 11:10 | NUR ---
PT LYING IN BED IN STABLE CONDITION. BED IN LOW POSITION. CALL LIGHT AT BEDSIDE. WILL CONTINUE TO MONITOR.
--- NOTE | 2018-06-06 12:10 | NUR ---
GAVE DISCHARGE INSTRUCTIONS PT VERBALIZED UNDERSTANDING OF INSTRUCTIONS. IV REMOVED LUMEN INTACT. ID BAND REMOVED. PT WHEELED TO LOBBY IN WHEELCHAIR. WHERE CASA PT FRIEND AND ROOMMATE WAS WAITING WITH VEHICLE. PT IN STABLE CONDITION.
== END 2018-06-06 12:10 | disposition home or self-care (01) | DRG 438 ==
LOC: MED 04:32 → MTU 07:59
PROVIDERS: ADMIT Family Medicine; ATTEND Family Medicine
DX: K85.90 Acute pancreatitis without necrosis or infection, unspecified (principal); E43 Unspecified severe protein-calorie malnutrition; N28.1 Cyst of kidney, acquired; D64.9 Anemia, unspecified; I49.5 Sick sinus syndrome; I10 Essential (primary) hypertension; N40.0 Benign prostatic hyperplasia without lower urinary tract symptoms; G47.00 Insomnia, unspecified; K57.30 Diverticulosis of large intestine without perforation or abscess without bleeding; K82.4 Cholesterolosis of gallbladder; K21.9 Gastro-esophageal reflux disease without esophagitis; K44.9 Diaphragmatic hernia without obstruction or gangrene; Z87.442 Personal history of urinary calculi; Z79.82 Long term (current) use of aspirin; Z79.899 Other long term (current) drug therapy; Z83.3 Family history of diabetes mellitus; Z80.9 Family history of malignant neoplasm, unspecified; Z87.891 Personal history of nicotine dependence; Z68.29 Body mass index [BMI] 29.0-29.9, adult; Z90.49 Acquired absence of other specified parts of digestive tract
CPT/HCPCS: 36415; 76705; 80053; 80305; 81003; 82150; 83036; 83690; 83735; 83880; 84100; 84134; 84439; 84443; 84484; 85025; 85610; 85730; 93005; 96372; 99285; C9113; G0482; J2270; J7030; J7042; J7060; Q0092

== ENCOUNTER 2018-06-07 09:05 | Emergency (ER) | payer OTHER ==
[~2018-06-07] VITALS: Ht 167.6 cm; Wt 68.0 kg
[~2018-06-07 09:05] MED LIST changes: +ATOR20TA40 PO; +BEN10 PO
[2018-06-07 09:12] VITALS: BP 152/84
--- NOTE | 2018-06-07 09:20 | NUR ---
PT AMBULATES TO BED 3
--- NOTE | 2018-06-07 09:21 | NUR ---
83 Y MALE C/O SEVERE GROIN PAIN, BACK PAIN, VISION LOSS. PAIN 10/10. PT DESCRIBES GROIN PAIN DULL ACHE. PT STATES THE PAIN RADIATES BEHIND HIS TESTICLES AND MOVES TOWARDS HIS ABDOMEN. NO SWELLING, NO ERYTHMA. STATES HE WAS HERE YESTERDAY FOR THE SAME THING BUT CANNOT REMEMBER WHAT WAS DONE FOR HIM. BED IS DOWN, LOCKED, BED RAIL X 1, ERMD NOTIFIED. URINE COLLECTED. HX: ON FILE RX: LISINOPRIL
--- NOTE | 2018-06-07 09:23 | NUR ---
Patient being evaluated by physician at bedside.
[2018-06-07] MEDS ORDERED: LACTULOSE 20 GM/30 ML UDC PO ONE (09:25)
[2018-06-07] MEDS ORDERED: DICYCLOMINE HCL LIQUID 10 MG/5 ML UDC PO ONE (09:25)
[2018-06-07] MEDS ORDERED: LORazepam 2 MG/ML VIAL IM ONE (09:25)
[2018-06-07 09:40] LABS: APPEARANCE,URINE CLEAR (CLEAR); BILIRUBIN,URINE NEGATIVE (NEGATIVE); BLOOD, URINE NEGATIVE (NEGATIVE); COLOR,URINE YELLOW (YELLOW); LEUKOCYTE ESTERASE ,URINE NEGATIVE (NEGATIVE); NITRITE, URINE NEGATIVE (NEGATIVE); PH,URINE 7.5 (5.0-9.0); UGLUCOSE NEGATIVE (NEGATIVE)
[2018-06-07 11:08] VITALS: BP 148/82
--- NOTE | 2018-06-07 11:08 | NUR ---
Patient discharged with v/s stable. Written and verbal after care instructions given and explained. Patient alert, oriented and verbalized understanding of instructions. Ambulatory with steady gait. All questions addressed prior to discharge. ID band removed. Patient advised to follow up with PMD. Rx of COLACE,LEVSIN,VISTARIL given. Patient educated on indication of medication including possible reaction and side effects. Opportunity to ask questions provided and answered.
--- NOTE | 2018-06-07 11:10 | NUR ---
PT BEING SENT HOME WITH A TAXI VOUCHER
== END 2018-06-07 11:10 | disposition home or self-care (01) ==
LOC: MED 09:05
DX: N39.0 Urinary tract infection, site not specified (principal); N40.1 Benign prostatic hyperplasia with lower urinary tract symptoms; F48.9 Nonpsychotic mental disorder, unspecified; R35.1 Nocturia; K59.09 Other constipation
CPT/HCPCS: 74018; 81003; 82948; 96372; 99284; J2060; Q0092

== ENCOUNTER 2018-06-14 20:56 | Emergency (ER) | payer OTHER ==
[~2018-06-14] VITALS: Ht 167.6 cm; Wt 83.9 kg
[~2018-06-14 20:56] MED LIST changes: -ACET-9525 PO; -ASPI-1718 PO; -ATOR20TA40 PO; -DOCU-299 PO; -ESCI20TA47 PO; -FINA5TAB5 PO; -LACT10CA PO; -METPCK PO; -SULF-59 PO
--- NOTE | 2018-06-14 20:56 | NUR ---
PT PAM BLS. TAKEN TO BED 10
--- NOTE | 2018-06-14 21:00 | NUR ---
83 Y/O M BIBA WITH C/O LUQ ABDOMINL AND L INGUINAL PAIN. AAOX4. PER PT PAIN IS 10/10, SHARP AND STABBING. PAIN DOES NOT RADIATED. LUQ AND INGUINAL AREA TENDER TO TOUCH. SYMPTOMS HAVE LASTED X1 WEEK THIS TIME, PAIN MORE APPARENT AT NIGHTTIME. PER PT PAIN HAS BEEN INTERMINTENT SINCE MARCH. BEDRAILS UP X1. MD NOTIFED. WILL CONTINUE TO MONITOR. PMH; HTN NKA
[2018-06-14 21:01] VITALS: BP 119/89
--- NOTE | 2018-06-14 21:13 | NUR ---
Dr. Velez evaluating patient at bedside.
[2018-06-14] MEDS ORDERED: HYDROcodone/APAP 5/325 MG 1 TAB TAB PO ONE (21:20)
[2018-06-14 22:16] LABS: APPEARANCE,URINE CLEAR (CLEAR); BILIRUBIN,URINE NEGATIVE (NEGATIVE); BLOOD, URINE NEGATIVE (NEGATIVE); COLOR,URINE YELLOW (YELLOW); LEUKOCYTE ESTERASE ,URINE NEGATIVE (NEGATIVE); NITRITE, URINE NEGATIVE (NEGATIVE); UGLUCOSE NEGATIVE (NEGATIVE)
--- NOTE | 2018-06-14 22:19 | NUR ---
PT MOVED TO ED 08
--- NOTE | 2018-06-14 22:19 | NUR ---
PT MOVED TO ER BED 8
[2018-06-14 23:00] VITALS: BP 145/73
== END 2018-06-14 23:00 | disposition home or self-care (01) ==
LOC: MED 20:56
DX: G89.29 Other chronic pain (principal); N42.9 Disorder of prostate, unspecified; F41.9 Anxiety disorder, unspecified; N40.0 Benign prostatic hyperplasia without lower urinary tract symptoms; I10 Essential (primary) hypertension; Z79.899 Other long term (current) drug therapy
CPT/HCPCS: 81003; 99283

== ENCOUNTER 2019-03-06 02:08 | Emergency (ER) | payer OTHER ==
[~2019-03-06] VITALS: Ht 175.3 cm; Wt 74.8 kg
[2019-03-06 02:08] VITALS: BP 164/81
--- NOTE | 2019-03-06 02:08 | NUR ---
TO BED #09 BROUGHT IN BY AMBULANCE WITH C/O SOB AND BLURRY VISION ON BOTH EYES
--- NOTE | 2019-03-06 02:08 | NUR ---
PT MESERETA BLS TO ER BED 09
--- NOTE | 2019-03-06 02:15 | NUR ---
84 Y/O BIBA FROM HOME WITH C/O SOB FOR 2 DAYS, BLURRY VISION ON BOTH EYES ON AND OFF FOR SEVERAL DAYS. A/O X4 AND FOLLOWS COMMANDS. BREATHING IS SYMMETRICAL; 97% ON RA; CLEAR/DIMINISHED BREATH SOUNDS BILATERALLY (ANTERIOR/POSTERIOR). DENIES N/V/D; DENIES PAIN. ERMD AWARE OF STATUS. SIDE RAILSX1. PLACED ON MONITOR. WILL CONTINUE TO MONITOR. PMH: HTN; COPD RX:DENIES NKDA Addendum: 03/06/19 at 0513 by MEDDI MEDICATION: LISINOPRIL
--- NOTE | 2019-03-06 02:29 | NUR ---
ERMD EVALUATING PATIENT AT THIS TIME.
--- NOTE | 2019-03-06 02:41 | NUR ---
ATTEMPTED VISUAL ACUITY TEST WITH PT, PT UNABLE TO IDENTIFY ANY LETTERS ON SNELLEN EYE CHART WITH EITHER EYE, COULD NOT COMPLETE VISUAL ACUITY TEST
[2019-03-06 03:11] LABS: BASOPHILS % (AUTO) 0.4 % (0.0-2.0); EOSINOPHILS # (AUTO) 0.3 K/uL (0-0.4); EOSINOPHILS % (AUTO) 3.4 % (0.0-4.0); HEMATOCRIT 39.6 % (36-52); HEMOGLOBIN 13.3 g/dL (12.0-18.0); LYMPHOCYTES # (AUTO) 1.7 K/uL (2.0-11.5); LYMPHOCYTES % (AUTO) 20.9 % (20.5-51.1); MEAN CORPUSCULAR HEMOGLOBIN 31 pg (27-31); MEAN CORPUSCULAR HGB CONC 34 g/dL (33-37); MEAN CORPUSCULAR VOLUME 92.5 fL (80-94); MONOCYTES # (AUTO) 0.6 K/uL (0.8-1.0); MONOCYTES % (AUTO) 7.5 % (1.7-9.3); NEUTROPHILS # (AUTO) 5.5 K/uL (1.8-7.7); NEUTROPHILS % (AUTO) 67.8 % (42.2-75.2); PLATELET COUNT (AUTO) 318 K/uL (140-450); RED BLOOD CELL COUNT(AUTO) 4.28 MIL/uL (4.20-6.10); RED CELL DISTRIBUTION WIDTH 14.5 % (11.6-13.7); WHITE BLOOD COUNT (AUTO) 8.1 K/uL (4.8-10.8)
[2019-03-06 03:22] LABS: APPEARANCE,URINE CLEAR (CLEAR); BILIRUBIN,URINE NEGATIVE (NEGATIVE); BLOOD, URINE NEGATIVE (NEGATIVE); COLOR,URINE YELLOW (YELLOW); LEUKOCYTE ESTERASE ,URINE NEGATIVE (NEGATIVE); NITRITE, URINE NEGATIVE (NEGATIVE); UGLUCOSE NEGATIVE (NEGATIVE)
[2019-03-06 03:23] LABS: ANION GAP 10.8 (8-16); CHLORIDE 106 mmol/L (98-107); CREATININE 0.9 mg/dL (0.7-1.3); GLUCOSE 99 mg/dL (74-106); POTASSIUM 3.8 mmol/L (3.5-5.1); SODIUM SERUM 144 mmol/L (136-145); UREA NITROGEN, BLOOD 21 mg/dL (7-18)
[2019-03-06 03:28] LABS: ALBUMIN 2.9 g/dL (3.4-5.0); ASPARTATE AMINOTRANSFERASE 8 U/L (15-37); CHOL/HDL RATIO 4.1 (1-4.5); HDL CHOLESTEROL 39 mg/dL (40-60); LDL (CALC) 111 mg/dL (60-100); TOTAL BILIRUBIN 0.5 mg/dL (0.0-1.0); TRIGLYCERIDES 45 mg/dL (30-150)
--- NOTE | 2019-03-06 04:56 | NUR ---
PATIENT STATES THAT HE WANTS TO WAIT IN THE LOBBY UNTIL TRANSFER TO [place]. ERMD MADE AWARE. WILL CONTINUE TO MONITOR.
--- NOTE | 2019-03-06 05:19 | NUR ---
Patient to be transferred to [facility]. Is being transferred due to . Receiving facility has accepting physician and available space. ER physician has signed transfer form. Patient or responsible constitution party has agreed to transfer and signed form. Patient belongings inventoried and will be sent with patient. Copy of nursing notes, lab reports, EKG, Physicians Orders and X-rays to be sent with patient. Report called to at receiving facility. ambulance service has been called for transfer. ETA is .
[2019-03-06 05:20] VITALS: BP 162/99
== END 2019-03-06 05:19 | disposition short-term general hospital (02) ==
LOC: MED 02:08
DX: H53.139 Sudden visual loss, unspecified eye (principal); J44.9 Chronic obstructive pulmonary disease, unspecified; I10 Essential (primary) hypertension; Z79.899 Other long term (current) drug therapy
CPT/HCPCS: 36415; 70450; 80053; 80061; 81003; 85025; 99285; G0482

== ENCOUNTER 2021-09-30 14:55 | Emergency (ER) | payer OTHER ==
[~2021-09-30] VITALS: Ht 162.6 cm; Wt 62.1 kg
[~2021-09-30 14:55] MED LIST changes: -LISI-420 PO; +LISI20TA29 PO
[2021-09-30 15:22] VITALS: BP 155/84
[2021-09-30 16:38] LABS: BASOPHILS % (AUTO) 0.4 % (0.0-2.0); EOSINOPHILS % (AUTO) 0.2 % (0.0-4.0); HEMATOCRIT 35.1 % (36-52); HEMOGLOBIN 11.1 g/dL (12.0-18.0); LYMPHOCYTES # (AUTO) 0.7 K/uL (2.0-11.5); LYMPHOCYTES % (AUTO) 6.5 % (20.5-51.1); MEAN CORPUSCULAR HEMOGLOBIN 24 pg (27-31); MEAN CORPUSCULAR HGB CONC 32 g/dL (33-37); MEAN CORPUSCULAR VOLUME 75.6 fL (80-94); MONOCYTES # (AUTO) 0.7 K/uL (0.8-1.0); MONOCYTES % (AUTO) 6.2 % (1.7-9.3); NEUTROPHILS # (AUTO) 9.5 K/uL (1.8-7.7); NEUTROPHILS % (AUTO) 86.7 % (42.2-75.2); PLATELET COUNT (AUTO) 347 K/uL (140-450); RED BLOOD CELL COUNT(AUTO) 4.64 MIL/uL (4.20-6.10); RED CELL DISTRIBUTION WIDTH 19.1 % (11.6-13.7); WHITE BLOOD COUNT (AUTO) 10.9 K/uL (4.8-10.8)
[2021-09-30 17:10] LABS: PHOSPHORUS 3.1 mg/dL (2.5-4.9)
[2021-09-30 17:18] LABS: ALBUMIN 3.4 g/dL (3.4-5.0); ANION GAP 14.2 (8-16); ASPARTATE AMINOTRANSFERASE 17 U/L (15-37); CARBON DIOXIDE 26.4 mmol/L (21-32); CHLORIDE 100 mmol/L (98-107); CREATININE 1.1 mg/dL (0.6-1.3); GLUCOSE 122 mg/dL (74-106); POTASSIUM 3.6 mmol/L (3.5-5.1); SODIUM SERUM 137 mmol/L (136-145); TOTAL BILIRUBIN 0.7 mg/dL (0.0-1.0); UREA NITROGEN, BLOOD 21 mg/dL (7-18)
[2021-09-30 20:30] VITALS: BP 155/84
--- NOTE | 2021-09-30 20:30 | NUR ---
Patient discharged with v/s stable. Written and verbal after care instructions given and explained. Patient alert, oriented and verbalized understanding of instructions. Ambulatory with to car. All questions addressed prior to discharge. ID band removed. Patient advised to follow up with PMD. Patient educated on indication of medication including possible reaction and side effects. Opportunity to ask questions provided and answered.
== END 2021-09-30 19:25 | disposition home or self-care (01) ==
LOC: MED 14:55
DX: R07.89 Other chest pain (principal); I10 Essential (primary) hypertension
CPT/HCPCS: 36415; 71045; 80053; 83735; 83880; 84100; 84484; 85025; 93005; 99285

== ENCOUNTER 2022-01-17 08:49 | Inpatient (IN) | payer OTHER ==
[~2022-01-17] VITALS: Ht 170.2 cm; Wt 63.2 kg
--- NOTE | 2022-01-17 08:49 | NUR ---
Berlin OROZCO via gurney to bed 09.
--- NOTE | 2022-01-17 08:49 | NUR ---
PAM ALS TO ER BED 9
[2022-01-17 09:04] VITALS: BP 170/90
--- NOTE | 2022-01-17 09:18 | NUR ---
SPOKE WITH EMERGENCY CONTACT CASA LISTED IN THE CONTACT INFO. PER CASA, PT HAS NO IMMEDIATE RELATIVES. CASA IS A FRIEND LIVING IN [place], [place]. PER CASA, PT LIVES WITH CASA'S GRANDSON WHO IS 19 YEARS OLD. (CONTACT INFO- [phone]). PER CASA, PT IS A [facility] PATIENT.
[2022-01-17 09:32] LABS: BASOPHILS # (AUTO) 0.1 K/uL (0.00-0.22); BASOPHILS % (AUTO) 1.6 % (0.0-2.0); EOSINOPHILS # (AUTO) 0.5 K/uL (0-0.4); EOSINOPHILS % (AUTO) 8.7 % (0.0-4.0); HEMATOCRIT 31.2 % (36-52); HEMOGLOBIN 9.5 g/dL (12.0-18.0); LYMPHOCYTES # (AUTO) 1.1 K/uL (2.0-11.5); LYMPHOCYTES % (AUTO) 17.1 % (20.5-51.1); MEAN CORPUSCULAR HEMOGLOBIN 21 pg (27-31); MEAN CORPUSCULAR HGB CONC 30 g/dL (33-37); MEAN CORPUSCULAR VOLUME 68.8 fL (80-94); MONOCYTES # (AUTO) 0.4 K/uL (0.8-1.0); NEUTROPHILS # (AUTO) 4.1 K/uL (1.8-7.7); NEUTROPHILS % (AUTO) 65.6 % (42.2-75.2); PLATELET COUNT (AUTO) 463 K/uL (140-450); RED BLOOD CELL COUNT(AUTO) 4.54 MIL/uL (4.20-6.10); RED CELL DISTRIBUTION WIDTH 20.5 % (11.6-13.7); WHITE BLOOD COUNT (AUTO) 6.2 K/uL (4.8-10.8)
--- NOTE | 2022-01-17 09:43 | NUR ---
86y/o male BIBA with c/o poor vision. Per EMS, pt asked a neighbor to call 911 for him w/o noting why, fire on scene is familiar with pt and state that he calls often. Upon assessment, pt not complaining of anything, pt repeatedly asking why he is in the hospital. Per EMS stated Fire engine 132 will initiate APS report. Pt placed in gown, bedside shelter monitor, bed in lowest position, side rails up x2.
[2022-01-17 10:21] LABS: ALBUMIN 2.3 g/dL (3.4-5.0); ANION GAP 14.3 (8-16); ASPARTATE AMINOTRANSFERASE 12 U/L (15-37); CHLORIDE 103 mmol/L (98-107); GLUCOSE 241 mg/dL (74-106); POTASSIUM 4.3 mmol/L (3.5-5.1); SODIUM SERUM 139 mmol/L (136-145); TOTAL BILIRUBIN 0.3 mg/dL (0.0-1.0); UREA NITROGEN, BLOOD 15 mg/dL (7-18)
--- NOTE | 2022-01-17 10:22 | NUR ---
Attempted to collect urine sample, pt refused. Dr. zAevedo made aware.
--- NOTE | 2022-01-17 10:39 | NUR ---
Emi swab collected and walked to lab. Handed to labor service representativeNelson.
[2022-01-17 11:24] LABS: APPEARANCE,URINE CLEAR (CLEAR); BILIRUBIN,URINE NEGATIVE (NEGATIVE); BLOOD, URINE NEGATIVE (NEGATIVE); COLOR,URINE YELLOW (YELLOW); LEUKOCYTE ESTERASE ,URINE NEGATIVE (NEGATIVE); NITRITE, URINE NEGATIVE (NEGATIVE); UGLUCOSE 1+ (NEGATIVE)
--- NOTE | 2022-01-17 12:12 | NUR ---
ATTEMPTED TO CALL CASA'S GRANDSON BUT UNABLE TO ANSWER.
--- NOTE | 2022-01-17 12:14 | NUR ---
CALLED CASA, PER CASA, WILL TEXT JOSE G TO CALL CHRISTIANNE ROBERTS
--- NOTE | 2022-01-17 12:18 | NUR ---
PER CASA, NO ONE WILL BE ABLE TO RECEPTION CENTRE MANAGER THE PATIENT UPON DISCHARGE HER GRANDSON IS CURRENTLY WORKING AT THIS TIME. KALIE MADE AWARE.
--- NOTE | 2022-01-17 12:28 | NUR ---
APS NOTIFIED. SPOKE WITH OLIVER WITH APS WITH REFERENCE NUMBER [id number]
[2022-01-17] MEDS ORDERED: MORPHINE SULFATE 2 MG/ML SYR IVP PRN (12:45)
[2022-01-17] MEDS ORDERED: POTASSIUM CHLORIDE 10 MEQ TABER PO PRN (12:45)
[2022-01-17] MEDS ORDERED: LORazepam 2 MG/ML VIAL IVP PRN (12:45)
[2022-01-17] MEDS ORDERED: MAG SULF 2000 MG/WATER PREMIX 50 ML IV PRN (12:45)
[2022-01-17] MEDS ORDERED: ONDANSETRON 4 MG/2 ML VIAL IVP PRN (12:45)
--- NOTE | 2022-01-17 15:15 | NUR ---
Patient will be admitted to care of Dr. Sharpe. Admited to Med/Surg. Will go to room 121A. Belongings list completed. Report to JACLYN Sheth.
[2022-01-17 16:00] VITALS: BP 134/83
[2022-01-17] MEDS ORDERED: DEXTROSE 50% 50 ML SYR IVP PRN (16:20)
[2022-01-17] MEDS: BLOOD GLUCOSE MONITORING 1 DEV DEV FS SCH ×2 (17:08→21:26)
[2022-01-17] MEDS: INSULIN LISPRO SLIDING SCALE 100 UNITS/ML VIAL SUBQ PRN (17:18)
[2022-01-17] MEDS: DOCUSATE SODIUM 100 MG GELCAP PO PRN (17:18)
--- NOTE | 2022-01-17 19:25 | NUR ---
ENDORSED PT TO PRODUCTION CONSULTANT NURSE ANNA
[2022-01-17] MEDS: ZOLPIDEM 10 MG TAB PO PRN (22:03)
[2022-01-18 02:57] VITALS: BP 128/66
[2022-01-18 06:02] LABS: BASOPHILS # (AUTO) 0.1 K/uL (0.00-0.22); BASOPHILS % (AUTO) 0.9 % (0.0-2.0); EOSINOPHILS # (AUTO) 0.7 K/uL (0-0.4); EOSINOPHILS % (AUTO) 8.9 % (0.0-4.0); HEMATOCRIT 27.9 % (36-52); HEMOGLOBIN 8.7 g/dL (12.0-18.0); LYMPHOCYTES # (AUTO) 1.9 K/uL (2.0-11.5); LYMPHOCYTES % (AUTO) 24.5 % (20.5-51.1); MEAN CORPUSCULAR HEMOGLOBIN 22 pg (27-31); MEAN CORPUSCULAR HGB CONC 31 g/dL (33-37); MEAN CORPUSCULAR VOLUME 69.1 fL (80-94); MONOCYTES # (AUTO) 0.7 K/uL (0.8-1.0); MONOCYTES % (AUTO) 9.5 % (1.7-9.3); NEUTROPHILS # (AUTO) 4.4 K/uL (1.8-7.7); NEUTROPHILS % (AUTO) 56.2 % (42.2-75.2); PLATELET COUNT (AUTO) 440 K/uL (140-450); RED BLOOD CELL COUNT(AUTO) 4.05 MIL/uL (4.20-6.10); WHITE BLOOD COUNT (AUTO) 7.9 K/uL (4.8-10.8)
[2022-01-18 06:23] LABS: CARBON DIOXIDE 24.8 mmol/L (21-32); CREATININE 0.8 mg/dL (0.6-1.3); GLUCOSE 86 mg/dL (74-106); UREA NITROGEN, BLOOD 19 mg/dL (7-18)
[2022-01-18 07:03] LABS: ANION GAP 11.5 (8-16); CHLORIDE 106 mmol/L (98-107); POTASSIUM 4.3 mmol/L (3.5-5.1); SODIUM SERUM 138 mmol/L (136-145)
[2022-01-18] MEDS: BLOOD GLUCOSE MONITORING 1 DEV DEV FS SCH ×4 (07:06→20:29)
--- NOTE | 2022-01-18 07:20 | NUR ---
RECEIVED REPORT FROM HEAD BUTLER NURSE ANNA FOR CONTINUITY OF CARE. NO SIGNS OF DISTRESS OR LABORED BREATHING. PT IS IN THE BED RESTING AT THIS TIME UNDER THE COVERS. PT IS A&OX2 AND GETS CONFUSED AT TIMES, ON ROOM AIR, SKIN INTACT WITH BRUISING ON ARMS AND HANDS. HE HAS A 22G IV IN HIS L FOREARM THAT IS PATENT, INTACT AND SALINE LOCKED. PT AMBULATES TO THE BATHROOM STEADY, VITALS ARE WITHIN NORMAL LIMITS FOR PATIENT. PTS BED IS IN LOW POSITION, TWO SIDE RAILS UP, CALL LIGHT WITHIN REACH AND ALL SAFETY MEASURE MEET AT THIS TIME. WILL CONTINUE TO MONITOR.
[2022-01-18 08:00] VITALS: BP 128/66
[2022-01-18] MEDS: lisinopriL 5 MG TAB PO SCH (09:00)
[2022-01-18 16:00] VITALS: BP 131/69
[2022-01-18] MEDS: DOCUSATE SODIUM 100 MG GELCAP PO PRN (16:34)
[2022-01-18] MEDS: ACETAMINOPHEN 325 MG TAB PO PRN (17:05)
--- NOTE | 2022-01-18 19:05 | NUR ---
ENDORSED PT TO DOCUMENTATION SPECIALIST NURSE GRABIEL ANAYA AND LEVAR ANAYA FOR CONTINUITY OF CARE.
[2022-01-19 04:00] VITALS: BP 119/58
[2022-01-19] MEDS: BLOOD GLUCOSE MONITORING 1 DEV DEV FS SCH ×4 (06:18→20:26)
--- NOTE | 2022-01-19 06:46 | NUR ---
REPORT GIVEN TO DAY SHIFT RN FOR CONTINUITY OF CARE FOR DAY SHIFT.
--- NOTE | 2022-01-19 07:25 | NUR ---
RECEIVED REPORT FROM JEWELLERY DESIGNER NURSE JUAN DAVID FOR CONTINUITY OF CARE. NO SIGNS OF DISTRESS OR LABORED BREATHING. PT IS A&OX1-2, ON ROOM AIR, SKIN INTACT EXCEPT BRUISING ON ARMS, WALKS TO THE BATHROOM WHEN NEEDED. PT HAS A 22G IV IN HIS L FOREARM THAT IS PATENT, INTACT AND SALINE LOCK. BED IN LOW POSITION, TWO SIDE RAILS UP, CALL LIGHT WITHIN REACH, AND ALL SAFETY MEASURES MEET. WILL CONTINUE TO MONITOR.
[2022-01-19 07:29] LABS: BASOPHILS # (AUTO) 0.1 K/uL (0.00-0.22); BASOPHILS % (AUTO) 1.1 % (0.0-2.0); EOSINOPHILS # (AUTO) 0.9 K/uL (0-0.4); HEMATOCRIT 29.1 % (36-52); LYMPHOCYTES # (AUTO) 1.3 K/uL (2.0-11.5); MEAN CORPUSCULAR HEMOGLOBIN 22 pg (27-31); MEAN CORPUSCULAR HGB CONC 31 g/dL (33-37); MEAN CORPUSCULAR VOLUME 71.9 fL (80-94); MONOCYTES # (AUTO) 0.7 K/uL (0.8-1.0); NEUTROPHILS # (AUTO) 3.9 K/uL (1.8-7.7); NEUTROPHILS % (AUTO) 56.1 % (42.2-75.2); PLATELET COUNT (AUTO) 476 K/uL (140-450); RED BLOOD CELL COUNT(AUTO) 4.04 MIL/uL (4.20-6.10); RED CELL DISTRIBUTION WIDTH 20.2 % (11.6-13.7)
[2022-01-19] MEDS: DOCUSATE SODIUM 100 MG GELCAP PO PRN (07:41)
[2022-01-19 07:58] LABS: CARBON DIOXIDE 26.9 mmol/L (21-32); CREATININE 0.9 mg/dL (0.6-1.3); GLUCOSE 82 mg/dL (74-106); UREA NITROGEN, BLOOD 19 mg/dL (7-18)
[2022-01-19 08:00] VITALS: BP 125/67
[2022-01-19 08:22] LABS: LYMPHOCYTES % (AUTO) 19.2 % (20.5-51.1); MONOCYTES % (AUTO) 10.4 % (1.7-9.3)
[2022-01-19 08:23] LABS: EOSINOPHILS % (AUTO) 13.2 % (0.0-4.0)
[2022-01-19 08:44] LABS: ANION GAP 11.6 (8-16); CHLORIDE 105 mmol/L (98-107); POTASSIUM 4.5 mmol/L (3.5-5.1); SODIUM SERUM 139 mmol/L (136-145)
[2022-01-19] MEDS: lisinopriL 5 MG TAB PO SCH (09:00)
--- NOTE | 2022-01-19 09:17 | NUR ---
PATIENT HAS BEEN SCREENED AND CATEGORIZED MODERATE NUTRITION RISK. PATIENT WILL BE SEEN WITHIN 3-5 DAYS OF ADMISSION. 01/17/22-01/22/[address]
[2022-01-19 16:00] VITALS: BP 126/74
--- NOTE | 2022-01-19 19:15 | NUR ---
ENDORSED PT TO SCIENTIFIC DATABASE CURATOR NURSE GRABIEL ANAYA AND LEVAR ANAYA FOR CONTINUITY OF CARE.
--- NOTE | 2022-01-20 01:00 | NUR ---
PATIENT IS SLEEPING AND IS IN NO APPARENT DISTRESS. WILL CONTINUE TO MONITOR.
[2022-01-20 04:00] VITALS: BP 130/80
[2022-01-20 05:37] LABS: BASOPHILS # (AUTO) 0.1 K/uL (0.00-0.22); BASOPHILS % (AUTO) 1.2 % (0.0-2.0); EOSINOPHILS # (AUTO) 0.8 K/uL (0-0.4); EOSINOPHILS % (AUTO) 10.6 % (0.0-4.0); HEMATOCRIT 28.5 % (36-52); LYMPHOCYTES # (AUTO) 1.5 K/uL (2.0-11.5); LYMPHOCYTES % (AUTO) 21.4 % (20.5-51.1); MEAN CORPUSCULAR HEMOGLOBIN 21 pg (27-31); MEAN CORPUSCULAR HGB CONC 32 g/dL (33-37); MEAN CORPUSCULAR VOLUME 67.1 fL (80-94); MONOCYTES # (AUTO) 0.7 K/uL (0.8-1.0); MONOCYTES % (AUTO) 9.4 % (1.7-9.3); NEUTROPHILS # (AUTO) 4.1 K/uL (1.8-7.7); NEUTROPHILS % (AUTO) 57.4 % (42.2-75.2); PLATELET COUNT (AUTO) 449 K/uL (140-450); RED BLOOD CELL COUNT(AUTO) 4.25 MIL/uL (4.20-6.10); RED CELL DISTRIBUTION WIDTH 20.3 % (11.6-13.7); WHITE BLOOD COUNT (AUTO) 7.2 K/uL (4.8-10.8)
[2022-01-20] MEDS: BLOOD GLUCOSE MONITORING 1 DEV DEV FS SCH ×4 (06:06→21:16)
[2022-01-20 06:10] LABS: CARBON DIOXIDE 25.4 mmol/L (21-32); CREATININE 0.9 mg/dL (0.6-1.3); GLUCOSE 84 mg/dL (74-106); UREA NITROGEN, BLOOD 19 mg/dL (7-18)
[2022-01-20 06:49] LABS: ANION GAP 10.6 (8-16); CHLORIDE 105 mmol/L (98-107); SODIUM SERUM 137 mmol/L (136-145)
[2022-01-20 08:00] VITALS: BP 138/84
--- NOTE | 2022-01-20 09:00 | NUR ---
PT. RECEIVED IN BED ASLEEP BUT AWAKEN TO VOICE, CARE ASSURED.ALERT AND ORIENTED*1 BUT VERY CONFUSED AND IMPULSIVE WHILE AWAKEN.AFEBRILE.VSS.ALL NEEDS ARE BEING MET.
[2022-01-20] MEDS: lisinopriL 5 MG TAB PO SCH (10:19)
[2022-01-20] MEDS: ACETAMINOPHEN 325 MG TAB PO PRN ×2 (11:00→17:00)
--- NOTE | 2022-01-20 13:25 | NUR ---
DC PLANNING SIVA ATTEMPTED TO MEET WITH PT AT BEDSIDE TO COMPLETE ASSESSMENT, HOWEVER, PT CONFUSED AND STRUGGLED TO PARTICIPATE IN ASSESSMENT. SIVA OUTREACHED TO PATIENTS EMERGENCY CONTACT, CASA LOCKHART, WHO REPORTS SHE IS A FAMILY FRIENDS WITH PT FOR OVER 50 YRS. CASA REPORTS PATIENT DOES NOT HAVE ANY FAMILY. CASA REPORTS PATIENT RESIDES IN A SINGLE STORY HOME WITH HER GRANDSON, BRICE WHO RESIDES IN THE BACK HOUSE OF THE PRIMARY RESIDENCE. PER CASA, PATIENT IS TYPICALLY INDEPENDENT AND REQUIRES SOME ASSISTANCE WITH ADL'S WHICH BRICE AIDS WITH. CASA REPORTS PATIENT WAS AT [facility] FOR 6 WEEKS BEFORE BEING DC ON HOSPICE CARE WITH [facility], 2 WEEKS AGO. SW OUTREACHED TO [facility] TO GATHER COLLATERAL INFORMATION, HOWEVER, NO ANSWER, LEFT A MESSAGE REQUESTING A RETURN PHONE CALL. Addendum: 01/21/22 at 1420 by Duc JAVIER FIELDED CALL FROM VEDA HUERTAS WHO REPORTS THAT SHE PREFERS PT IS NOT DC'D HOME. NUVIA REPORTS RECEIVING SEVERAL REFERRALS REPORTING PATIENT IS INADEQUATELY CARED FOR. JAYY REQUESTING FOR PT DC TO SNF TO RESUME HOSPICE CARE. SIVA HOPE CM IS CURRENTLY WORKING WITH CUSTOMER SERVICE SUPERVISOR IN IDENTIFYING SNF WITH HOSPICE PLACEMENT. Addendum: 01/22/22 at 1341 by Duc Gurrola SS OUTREACHED TO PT APS NEW AUTOS DELIVERY DRIVER JAYY VALDEZ TO PROVIDE SW WITH UPDATE ON WHERE PATIENT WILL BE GOING, HOWEVER NO ANSWER. PROVIDED JAYY WITH DIRECT LINE IF SHE HAD ANY FURTHER QUESTIONS. PT WILL BE GOING TO [facility]; [address] [place] [address] PHONE NUMBER [phone]
--- NOTE | 2022-01-20 17:00 | NUR ---
PT AWAKE AND ALERT, RESTING QUIETLY IN BED.VSS.AFEBRILE.SAFETY MAINTAINED.BED IN LOW SAFE POSITION.CALL LIGHT WITHIN HIS REACH.
[2022-01-20 20:00] VITALS: BP 121/56
[2022-01-20] MEDS: ZOLPIDEM 10 MG TAB PO PRN (21:40)
[2022-01-21 04:00] VITALS: BP 132/77
[2022-01-21 05:36] LABS: BASOPHILS # (AUTO) 0.1 K/uL (0.00-0.22); BASOPHILS % (AUTO) 0.8 % (0.0-2.0); EOSINOPHILS # (AUTO) 0.8 K/uL (0-0.4); EOSINOPHILS % (AUTO) 10.6 % (0.0-4.0); HEMATOCRIT 28.3 % (36-52); HEMOGLOBIN 8.8 g/dL (12.0-18.0); LYMPHOCYTES # (AUTO) 1.4 K/uL (2.0-11.5); LYMPHOCYTES % (AUTO) 19.3 % (20.5-51.1); MEAN CORPUSCULAR HEMOGLOBIN 21 pg (27-31); MEAN CORPUSCULAR HGB CONC 31 g/dL (33-37); MEAN CORPUSCULAR VOLUME 67.4 fL (80-94); MONOCYTES # (AUTO) 0.6 K/uL (0.8-1.0); MONOCYTES % (AUTO) 8.5 % (1.7-9.3); NEUTROPHILS # (AUTO) 4.4 K/uL (1.8-7.7); NEUTROPHILS % (AUTO) 60.8 % (42.2-75.2); PLATELET COUNT (AUTO) 405 K/uL (140-450); RED CELL DISTRIBUTION WIDTH 20.2 % (11.6-13.7); WHITE BLOOD COUNT (AUTO) 7.2 K/uL (4.8-10.8)
--- NOTE | 2022-01-21 06:34 | NUR ---
NO ACUTE CHANGES IN PATIENT'S CONDITION, MEDICATIONS GIVEN ORDERED, ACCUCHECK DONE, NO COVERAGE GIVEN PER S/S ALL NEEDS ATTENDED, BED LOCKED IN LOWEST POSITION, SIDE RAILS UP, CALL LIGHT WITHIN REACH, CONTINUITY OF CARE ENDORSED TO DAY SHIFT NURSE.
[2022-01-21] MEDS: BLOOD GLUCOSE MONITORING 1 DEV DEV FS SCH ×4 (07:30→20:16)
--- NOTE | 2022-01-21 07:30 | NUR ---
RECEIVED REPORT FROM BASKET MAKER NURSE FOR CONTINUITY OF CARE. PATIENT ASLEEP BUT EASILY WAKE UP. RESPIRATION EVEN AND NOT LABORED NO SHORTNESS OF BREATH. IV SITE ON LEFT AC AT 22 SALINE LOCK. ALL SAFETY MEASURE IN PLACE.
[2022-01-21 08:00] VITALS: BP 129/75
[2022-01-21] MEDS: lisinopriL 5 MG TAB PO SCH (08:57)
--- NOTE | 2022-01-21 08:58 | NUR ---
FINISHED EATING BREAKFAST GIVEN HIS LISINOPRIL TOLERATED WELL. CALL LIGHT WITH IN EASY REACH.
[2022-01-21 09:59] LABS: CARBON DIOXIDE 24.3 mmol/L (21-32); CHLORIDE 104 mmol/L (98-107); GLUCOSE 80 mg/dL (74-106); POTASSIUM 4.3 mmol/L (3.5-5.1); SODIUM SERUM 137 mmol/L (136-145)
[2022-01-21 10:00] LABS: UREA NITROGEN, BLOOD 26 mg/dL (7-18)
[2022-01-21] MEDS: INSULIN LISPRO SLIDING SCALE 100 UNITS/ML VIAL SUBQ PRN ×2 (11:46→20:17)
--- NOTE | 2022-01-21 11:46 | NUR ---
BLOOD SUGAR CHECK AND GIVEN INSULIN 2 UNITS FOR BLOOD SUGAR 161.
--- NOTE | 2022-01-21 13:13 | NUR ---
MARGARITA WISE FROM [facility] CALLED THAT THEY WILL ACCEPT THE PATIENT AND WILL CALL FOR THE COMMANDING OFFICER MOTORIZED SQUAD TIME AND HE WILL BE DISCHARGE HOME. AFTER THAT CASA CALLED ASKING IF THERE'S ORDER FOR DISCHARGE I TOLD HER YES AND SHE SAID THAT THE SON WILL BE ABLE TO PICK HIM UP AROUND 5-530 PM. THEN MICHAEL LEON FROM [facility] CALLED THAT THE DISCHARGE FOR PATIENT IS NOT SAFE BECAUSE THERE NO ONE AT HOME TO TAKE CARE OF HIM I DIRECTED HER CALL TO GEODESIST. [facility] CALLED AGAIN AND SAID THAT THEY WON'T BE ABLE TO ACCEPT PATIENT TO THEIR SERVICE.
--- NOTE | 2022-01-21 17:23 | NUR ---
BLOOD SUGAR CHECKED NO INSULIN NEEDED FOR 110 BLOOD SUGAR PATIENT ON STABLE CONDITION. CALL LIGHT WITH IN EASY REACH.
--- NOTE | 2022-01-21 19:09 | NUR ---
GAVE REPORT TO CATEGORY ANALYST NURSE FOR CONTINUITY OF CARE.
--- NOTE | 2022-01-21 19:10 | NUR ---
RECEIVED PATIENT IN BED, ASLEEP, EASILY AROUSABLE. DENIES PAIN. NO ACUTE RESPIRATORY DISTRESS NOTED. SKIN WARM AND DRY TO TOUCH. BED IN THE LOWEST AND LOCKED POSITION FOR SAFETY, CALL LIGHT IN REACH, ENCOURAGED TO CALL IF ASSISTANCE IS NEEDED.
[2022-01-21 20:00] VITALS: BP 131/68
--- NOTE | 2022-01-21 20:16 | NUR ---
BS-159 MG/DL, INSULIN GIVEN PER SLIDING SCALE COVERAGE ORDERED. REFUSED HS SNACKS.
--- NOTE | 2022-01-22 00:05 | NUR ---
PATIENT IS ASLEEP. BREATHING EVEN AND UNLABORED. CALL LIGHT IN REACH.
[2022-01-22 04:00] VITALS: BP 147/85
[2022-01-22 05:29] LABS: BASOPHILS % (AUTO) 0.5 % (0.0-2.0); EOSINOPHILS # (AUTO) 0.7 K/uL (0-0.4); EOSINOPHILS % (AUTO) 9.5 % (0.0-4.0); HEMATOCRIT 29.6 % (36-52); HEMOGLOBIN 9.3 g/dL (12.0-18.0); LYMPHOCYTES # (AUTO) 1.4 K/uL (2.0-11.5); LYMPHOCYTES % (AUTO) 20.6 % (20.5-51.1); MEAN CORPUSCULAR HEMOGLOBIN 21 pg (27-31); MEAN CORPUSCULAR HGB CONC 31 g/dL (33-37); MEAN CORPUSCULAR VOLUME 67.4 fL (80-94); MONOCYTES # (AUTO) 0.7 K/uL (0.8-1.0); MONOCYTES % (AUTO) 10.3 % (1.7-9.3); NEUTROPHILS # (AUTO) 4.1 K/uL (1.8-7.7); NEUTROPHILS % (AUTO) 59.1 % (42.2-75.2); PLATELET COUNT (AUTO) 422 K/uL (140-450); RED BLOOD CELL COUNT(AUTO) 4.39 MIL/uL (4.20-6.10); RED CELL DISTRIBUTION WIDTH 20.5 % (11.6-13.7); WHITE BLOOD COUNT (AUTO) 6.9 K/uL (4.8-10.8)
[2022-01-22 06:16] LABS: ANION GAP 8.6 (8-16); CARBON DIOXIDE 29.7 mmol/L (21-32); CHLORIDE 103 mmol/L (98-107); CREATININE 0.9 mg/dL (0.6-1.3); GLUCOSE 89 mg/dL (74-106); POTASSIUM 4.3 mmol/L (3.5-5.1); SODIUM SERUM 137 mmol/L (136-145); UREA NITROGEN, BLOOD 24 mg/dL (7-18)
--- NOTE | 2022-01-22 06:34 | NUR ---
BS-95 MG/DL, NO S/SX OF HYPO/HYPERGLYCEMIA. ALL NEEDS ATTENDED TO. NO DISTRESS NOTED. SAFETY PRECAUTIONS MAINTAINED DURING THE SHIFT, CALL LIGHT REMAINED WITHIN REACH.
[2022-01-22] MEDS: BLOOD GLUCOSE MONITORING 1 DEV DEV FS SCH ×2 (06:59→11:16)
--- NOTE | 2022-01-22 07:06 | NUR ---
RECEIVED REPORT FROM BUILDING CONSTRUCTION CONTRACTOR NURSE LYLY FOR CONTINUITY OF CARE. PATIENT ASLEEP NO DISTRESS NOTED. RESPIRATION EVEN AND NOT LABORED NO SHORTNESS OF BREATH. IV SITE ON LEFT AC JUAREZ 22 SALINE LOCK. ALL SAFETY MEASURE IN LACE.
[2022-01-22] MEDS: lisinopriL 5 MG TAB PO SCH (08:47)
--- NOTE | 2022-01-22 08:47 | NUR ---
PATIENT EATING BREAKFAST GIVEN HIS LISINOPRIL TOLERATED WELL.
--- NOTE | 2022-01-22 09:02 | NUR ---
SEEN BY DR. NOLAN AND HE ORDER TO REMOVED IV SITE ON HIS LEFT AC PER PATIENT REQUEST.
--- NOTE | 2022-01-22 11:22 | NUR ---
PATIENT REFUSED TO CHECK HIS BLOOD SUGAR STATED I'M NOT DIABETIC AND YOU KEEP ON POKING MY FINGER.
[2022-01-22 12:00] VITALS: BP 140/82
--- NOTE | 2022-01-22 12:19 | NUR ---
RECEIVED CALL FROM [facility] THAT THEY CAN ADMIT PATIENT AND WILL BE TRANSFER TO [facility] [place]. INFORM CASE MANAGE
--- NOTE | 2022-01-22 12:29 | NUR ---
INFORM CASA FISHER EEL SPEAR FOR THE PATIENT OF THE ADMISSION FROM [email or web address] AND TRANSFER TO [facility] FAC[facility].
--- NOTE | 2022-01-22 15:34 | NUR ---
01/22/22 RD INITIAL ASSESSMENT COMPLETED PLEASE REFER TO NUTRITION ASSESSMENT UNDER CARE ACTIVITY FOR ESTIMATED NUTRITIONAL NEEDS. 1. [facility]OMM[facility]. 2. OFFERED DIABETES EDUCATION; PATIENT DECLINED. 3. MONITOR BLOOD GLUCOSE 4. RD TO FOLLOW-UP 7 DAYS, LOW RISK REVIEWED BY CARLOS ALBERTO MARQUES RD
--- NOTE | 2022-01-22 15:50 | NUR ---
I CALLED [facility] [phone] TO GIVE REPORT FOR CONTINUITY OF CARE BUT NO ONE ANSWER AND GOES TO ANSWERING MACHINE.
--- NOTE | 2022-01-22 16:45 | NUR ---
PATIENT ALERT WITH CONFUSION ND HARD OF HEARING. [facility]. REMOVED NAME BAND THE IV WAS REMOVED THIS MORNING ALL BELONGING SEND WITH PATIENT WITH DISCHARGE PACKET. INFORM [facility] THAT PATIENT TRANSPORTED ALREADY.
== END 2022-01-22 16:40 | DRG 70 ==
LOC: MED 08:49 → MMU 12:40 → MTU 13:42
PROVIDERS: ADMIT Family Medicine; ATTEND Family Medicine
DX: G93.41 Metabolic encephalopathy (principal); E43 Unspecified severe protein-calorie malnutrition; Z20.822 Contact with and (suspected) exposure to COVID-19; I10 Essential (primary) hypertension; J44.9 Chronic obstructive pulmonary disease, unspecified; E83.51 Hypocalcemia; D75.839 Thrombocytosis, unspecified; D50.9 Iron deficiency anemia, unspecified; E11.9 Type 2 diabetes mellitus without complications; Z68.21 Body mass index [BMI] 21.0-21.9, adult; Z79.4 Long term (current) use of insulin; Z90.89 Acquired absence of other organs
CPT/HCPCS: 36415; 70450; 71045; 80048; 80053; 81003; 82948; 83735; 85025; 87081; 93005; 97112; 97116; 97163-GP; 97530; 99285; J1815; J2060; Q0092; Q0163